=== PATIENT | female | born 1945 | race Caucasian/White ===

== ENCOUNTER 2021-05-15 04:38 | Inpatient (IN) | payer MEDICARE, SELFPAY ==
[2021-05-15] VITALS (20 sets, daily range): BP systolic 101–192; BP diastolic 46–93; PULSE 84–120; RESP 12–29; TEMP 35.6–37.3; O2SAT 97–100; BMI 23.3
--- NOTE | ~2021-05-15 | XR_ITS ---
EXAMINATION: XR chest 1V DATE: 05/15/2021 05:11 INDICATION: Fall. Hypertension. TECHNIQUE: frontal view of the chest was obtained. COMPARISON: None FINDINGS: Small calcified nodule in the left midlung zone and calcified left hilar lymph nodes consistent with old granulomatous disease. No other airspace opacities, pulmonary edema, pleural effusion or pneumoth orax. The cardiomediastinal silhouette is normal. Cholecystectomy clips in right upper quadrant. Mild to moderate degenerative skeletal changes in the spine and at both shoulders. IMPRESSION: 1. No acute cardiopulmonary disease. Reviewed, dictated and finalized at location A.
--- NOTE | ~2021-05-15 | XR_ITS ---
EXAMINATION: XR hip RT 2V w AP pelvis DATE: 05/15/2021 05:11 INDICATION: Right hip pain and deformity post fall TECHNIQUE: Anteroposterior view of the pelvis and anteroposterior and cross-table lateral views of th e right hip were obtained. COMPARISON: None. FINDINGS: Comminuted intratrochanteric fracture of the proximal right femur with 20 degrees varus and posterior angulation of the diaphyseal fragment. There is 2.5 cm superomedial distraction of the lesser trocha nteric fragment. Right femoral head remains normally centered in the right acetabulum. Mild osteoarth ritis at the bilateral hips and mild to moderate osteoarthritis at the bilateral sacral iliac joints. Mild lumbar spondylosis. Vascular calcifications of multiple arteries in the pelvis and proximal thi ghs. IMPRESSION: 1. Mildly displaced and angulated comminuted intratrochanteric fracture of the proximal right femur. Reviewed, dictated and finalized at location A.
--- NOTE | ~2021-05-15 | XR_ITS ---
EXAMINATION: XR surgery orthopedic DATE: 05/15/2021 15:43 INDICATION: Gamma nailing of a right hip fracture TECHNIQUE: 4 fluoroscopic images of the right hip and femur were obtained during procedure performed by Dr. Mcfadden. Radiologist was not present for the imaging or procedure. The amount of fluoroscopy time used during this procedure was 2.1 minutes. COMPARISON: 05/15/2021 FINDINGS: Interval reduction and internal fixation of the previous noted comminuted intratrochanteric fracture of the proximal right femur which is now in essentially anatomic alignment. The fracture is fixed wit h an antegrade intramedullary laney with dynamic femoral neck compression screw and distal interlocking screw. No new fractures identified. Mild osteoarthritis at the right hip marginal osteophytes along the rim of the acetabulum. Expected gas in the soft tissues at the operative bed. IMPRESSION: 1. Essentially anatomic alignment post internal fixation of a comminuted intratrochanteric fracture o f the proximal right femur, negative for postoperative purposes. Reviewed, dictated and finalized at location A. IMPRESSION: 1. Essentially anatomic alignment post internal fixation of a comminuted intrat rochanteric fracture of the proximal right femur, negative for postoperative pu rposes.
--- NOTE | 2021-05-15 05:08 | ED.FALL ---
HPI - Fall General Chief Complaint: Fall Stated Complaint: fall, hip pain Time Seen by Provider: 05/15/21 04:49 Source: patient Mode of arrival: EMS Limitations: no limitations History of Present Illness HPI Narrative: 75-year-old female with history of insulin-dependent diabetes got up to go to the bathroom tonight and fell on her way back to bed. Arrives with R hip pain and deformity, unable to move R leg. No LOC, denies other injury, not on blood thinners. Mechanical fall. Pain constant from Lateral R hip to R quad, sharp,, worse with movement, improves with rest. No previous history of hip or pelvis injury. Related Data Home Medications Medication Instructions Recorded Confirmed insulin glargine U-300 conc 300 35 unit SUB-Q QAM ml 07/19/19 05/15/21 unit/mL (3 mL) subcutaneous pen insulin lispro 200 unit/mL (3 mL) 45 unit SUB-Q .sliding scale ml 07/19/19 05/15/21 subcutaneous pen cholecalciferol (vitamin D3) 50 mcg PO DAILY 05/15/21 05/15/21 [Vitamin D3] Allergies Allergy/AdvReac Type Severity Reaction Status Date / Time No Known Allergies Allergy Verified 05/15/21 09:01 Review of Systems Review of Systems: CONSTITUTIONAL: no fever, no weight loss, no confusion EYES: no vision changes, no eye pain ENT: no rhinorrhea, no sore throat, no difficulty swallowing CARDIOVASCULAR: no chest pain, no leg edema, no palpitations RESPIRATORY: no cough, no shortness of breath, no hemoptysis GASTROINTESTINAL: no abdominal pain, no nausea, no vomiting, no diarrhea GENITOURINARY: no flank pain, no dysuria, no hematuria SKIN: no rash, no jaundice MUSCULOSKELETAL: R hip pain, R LE deformity NEUROLOGIC: No headache, no dizziness, no focal weakness PSYCHIATRIC: No hallucinations, no suicidal ideation [facility] Past Medical History Medical History HTN (hypertension), benign Type 2 diabetes mellitus with hyperglycemia Surgical History Surgical History History of section, low transverse Status post laparoscopic cholecystectomy Family History Family History Father Family history of diabetes mellitus in first degree relative Family history of heart disease in male family member before age 55 Family history of congestive heart failure Mother Family history of malignant neoplasm of uterus Family history of malignant neoplasm of ovary Family history of malignant neoplasm Sibling Family history of malignant neoplasm Father Family history of type 2 diabetes mellitus Father Family history of type 2 diabetes mellitus Other Diabetes mellitus Hypertension Social History Social History Smoking status: Never smoker Second hand tobacco smoke exposure: No Alcohol intake: never Substance use: never Substance use type: does not use Gender identity (if verbalized by the patient): Female Spiritual care concerns: No Exam Narrative: General: alert, afebrile, answering all questions appropriately Head: normocephalic, atraumatic Eyes: EOMI bilaterally, anicteric, no injection ENT: dry mucous membranes, oropharynx patent, no rhinorrhea Neck: supple, trachea midline, no JVD Chest: equal chest rise bilaterally, no chest wall trauma noted : no CVA tenderness B, bladder non-distended EXT: RLE: leg shortened DP 2+ unable to flex leg, tend anterior/lateral hip; moving all other extremities equally Skin: warm, dry, no rashes Neuro: alert, oriented x 3; CN 2-12 grossly intact, no dysarthria Psych: affect appropriate, thought content normal Course Course Emergency Course: xray results reviewed, patient with R intertrochanteric fracture with displacement; patient not on blood thinners, pain medication given, IVF infusing, patient more comfortable will admit for hip fracture Con
[2021-05-15] MEDS: fentaNYL CITRATE INJ (*CRX) 100 MCG/2 ML VIAL 25 MCG IV PUSH ×2 (05:18→06:55)
[2021-05-15 05:33] LABS: Basophils Percent Auto 0.5 % (0.2-1.2); Eosinophils Absolute Auto 0.3 K/mm3 (0-0.3); Eosinophils Percent Auto 4.8 % (0-4.4); Hematocrit 33.8 % (37.0-47.0); Hemoglobin 12.3 g/dL (12.0-15.0); Immature Granulocyte Absolute 0.03 K/mm3 (0.00-0.031); Immature Granulocyte Percent A 0.5 % (0-0.5); Lymphocytes Absolute Auto 1.39 K/mm3 (0.9-3.2); Lymphocytes Percent Auto 24.7 % (18.3-44.2); Mean Corpuscular HGB Conc 36.4 g/dl (32-36); Mean Corpuscular Hemoglobin 31.1 pg (26-34); Mean Corpuscular Volume 85.6 fl (80-100); Mean Platelet Volume 9.5 fl (7.4-10.4); Monocytes Absolute Auto 0.4 K/mm3 (0.1-0.6); Monocytes Percent Auto 6.2 % (2.6-8.5); Neutrophils Absolute Auto 3.6 K/mm3 (1.3-6.7); Neutrophils Percent Auto 63.3 % (45.5-73.1); Platelet Count Result 191 k/mm3 (150-375); Red Blood Count 3.95 M/mm3 (4.2-5.4); Red Cell Distribution Width 12.4 % (11.5-14.5); White Blood Count 5.6 K/mm3 (4.5-10.0)
[2021-05-15 05:42] LABS: Anion Gap 9 mmol/L (8-16); Blood Urea Nitrogen 30 mg/dL (7-17); Calcium 9.1 mg/dL (8.4-10.2); Carbon Dioxide 27 mmol/L (22-30); Chloride 102 mmol/L (98-107); Estimated CRCL calculation 28 ml/min; Estimated Glomerular Filt Rate 44; Glucose 252 mg/dL (65-110); Potassium 3.6 mmol/L (3.4-5.0); Prothrombin Time 13.2 Seconds (11.1-14.7); Sodium 138 mmol/L (137-145)
[2021-05-15 05:53] LABS: Troponin I < 0.012 ng/mL (0.000-0.034)
[2021-05-15] MEDS: LACTATED RINGERS 1,000 ML 999 ML IV CONT (06:25)
[2021-05-15 06:45] LABS: Add Urine Microscopic? YES; Appearance Urine Cloudy (Clear); Bacteria Urine Trace /hpf; Bilirubin Urine Negative (Negative); Blood Urine Negative (Negative); Color Urine Yellow (Yellow); Glucose Urine UA 2+ mg/dL (Negative); Ketones Urine Negative (Negative); Leukocyte Esterase Ur Trace LEU/UL (Negative); Mucus Urine Rare /lpf; Nitrate Urine Positive (Negative); Protein Urine Negative (Negative); Squamous Epithelial Cell Urine Occasional /hpf (Few); Urobilinogen Urine Negative mg/dL (<2.0)
[2021-05-15 08:19] LABS: Hemoglobin A1C 7.5 % (<5.7)
[2021-05-15 08:22] LABS: Glucose Point of Care 254 mg/dl (65-105)
--- NOTE | 2021-05-15 08:45 | ADMGEN ---
This patient, Amy Dhaliwal, was admitted to [facility] Surg Room 305-02. Patient/family oriented to hospital policies and general routines including ID bracelet, bed and alarms, visiting hours, pain management, procedures, bathroom and other care routines, personal items, smoking policy, room service/diet, and visiting hours. Information on how to activate the Rapid Response Team has been discussed. Patient/Family are encouraged to report perceived risks to care and to ask questions if they do not understand what they are told or what they should do.
--- NOTE | 2021-05-15 08:58 | PM.CNOR ---
Assessment and Plan Additional Plan 75-year-old with a right intertrochanteric hip fracture. We will prepare for surgery and hopefully fix with a gamma nail this afternoon. Medicine to see for surgical clearance. History of Present Illness HPI Consult date: 05/15/21 Consult reason: fracture Chief complaint: r hip fracture Narrative: 75-year-old female who fell trying to go to the bathroom. She sustained a right intertrochanteric hip fracture. She is an insulin-dependent diabetes. She has no other significant health history. Medicine is to see to clear for surgery. She will require a gamma nail. [facility] Past Medical History Medical History (Updated 05/15/21 @ 05:51 by Amy Rowland MD) HTN (hypertension), benign Surgical History Surgical History History of section, low transverse Status post laparoscopic cholecystectomy Family History Family History Father Family history of diabetes mellitus in first degree relative Family history of heart disease in male family member before age 55 Family history of congestive heart failure Mother Family history of malignant neoplasm of uterus Family history of malignant neoplasm of ovary Family history of malignant neoplasm Sibling Family history of malignant neoplasm Father Family history of type 2 diabetes mellitus Father Family history of type 2 diabetes mellitus Other Diabetes mellitus Hypertension Social History Social History Smoking status: Never smoker Second hand tobacco smoke exposure: No Alcohol intake: never Substance use: never Substance use type: does not use Gender identity (if verbalized by the patient): Female Spiritual care concerns: No Meds Home Medications and Allergies Home Medications Medication Instructions Recorded Confirmed Type lisinopril 2.5 mg tablet 2.5 mg PO DAILY #30 tablet 06/05/19 06/05/19 Rx insulin glargine U-300 conc 300 100 unit SUB-Q QAM ml 07/19/19 History unit/mL (3 mL) subcutaneous pen insulin lispro 200 unit/mL (3 mL) 45 unit SUB-Q .sliding scale ml 07/19/19 History subcutaneous pen Allergies Allergy/AdvReac Type Severity Reaction Status Date / Time No Known Allergies Allergy Verified 05/15/21 09:01 Vital Signs Vital Signs - 24 hr 05/15/21 04:41 11/04/21 05:23 05/15/21 07:01 Temperature 36.6 C Pulse Rate 102 H 107 H 114 H Respiratory Rate 16 15 Blood Pressure 192/93 H 157/76 H 185/84 H Pulse Oximetry 99 97 98 05/15/21 08:10 Temperature 36.1 C L Pulse Rate 114 H Respiratory Rate 20 Blood Pressure 176/79 H Pulse Oximetry 100 Exam Extrem: Other: Right hip Shortened and externally rotated. Calves are supple and nontender. Right thigh is supple and minimally tender. Attempt at log roll is tender. Neurovascularly intact distally with good capillary refill. X-ray review shows an intertrochanteric hip fracture with displacement. Results Labs Result Diagrams: 05/15/21 05:12 05/15/21 05:12 Labs: Abnormal lab results 05/15/21 05/15/21 05/15/21 Range/Units 05:12 05:12 05:12 RBC 3.95 L (4.2-5.4) M/mm3 Hct 33.8 L (37.0-47.0) % MCHC 36.4 H (32-36) g/dl Eos % (Auto) 4.8 H (0-4.4) % BUN 30 H (7-17) mg/dL Creatinine 1.20 H (0.7-1.0) mg/dL Estimated GFR 44 L (59 - ) Glucose 252 H (65-110) mg/dL POC Capillary Glucose (65-105) mg/dl Hemoglobin A1c 7.5 H (<5.7) % Urine Appearance (Clear) Urine Glucose (UA) (Negative) mg/dL Urine Nitrate (Negative) Leukocyte Esterase Rfl (Negative) PATRICIO/UL Urine RBC (0-2) /hpf Urine WBC /hpf 05/15/21 05/15/21 Range/Units 06:26 07:56 RBC (4.2-5.4) M/mm3 Hct (37.0-47.0) % MCHC (32-36) g/dl Eos % (Auto) (0-4.4) % BUN
[2021-05-15] MEDS: LACTATED RINGERS 1,000 ML 150 ML IV CONT (09:53)
[2021-05-15] MEDS: INSULIN ASPART (*BKC) 100 UNITS/ML SUB-Q (09:55)
[2021-05-15] MEDS: LABETALOL HCL INJ 100 MG/20 ML VIAL 10 MG IV PUSH (10:02)
[2021-05-15] MEDS: MORPHINE SULFATE (*CRX) 2 MG/ML INJ 1 MG IV PUSH ×2 (10:16→20:58)
--- NOTE | 2021-05-15 10:58 | ECG_ITS ---
Measurements Intervals [place] Rate: 99 P: 69 NC: 176 QRS: 59 QRSD: 68 T: 62 QT: 339 QTc: 436 Interpretive Statements SINUS RHYTHM BASELINE ARTIFACT- II, III, V4 NORMAL ECG Electronically Signed On 05-15-2021 15:10:21 CDT by Thong Giordano D.O.
[2021-05-15 12:26] LABS: Glucose Point of Care 212 mg/dl (65-105)
--- NOTE | 2021-05-15 13:13 | PM.IMHP ---
H&P: HPI History of Present Illness Date/Time: 05/15/21 13:13 Chief Complaint: Fall Narrative: 75-year-old female with past medical history significant hypertension, hyperlipidemia and type 2 diabetes mellitus presented status post mechanical fall. Patient reports that she woke up in the middle of the night to go to the bathroom and on her way back sustained a mechanical fall. She denies any lightheadedness, dizziness, chest pain, shortness of breath, fluttering of the heart, fever, chills, nausea or vomiting during this episode. An x-ray done in the ED with concerns for intertrochanteric fracture. Orthopedics has been brought on board the patient is planned for going to the OR does have a known. Patient reports that she is able to complete 4 Mets. She is able to climb a flight of stairs without any shortness of breath or chest pain however she is limited by her knee pain secondary to osteoarthritis and knee surgery on the left leg. An EKG was done preop which revealed normal sinus rhythm. And patient is cleared for surgery with an RCRI score of 1, putting her at 6% risk of cardiac complications postop op. Review of Systems Review of Systems: A 10 point review of system was conducted which was otherwise negative PMFSH Past Medical History Medical History (Updated 05/15/21 @ 13:51 by Barbara Reveles MD) HTN (hypertension), benign Surgical History Surgical History History of section, low transverse Status post laparoscopic cholecystectomy Family History Family History Father Family history of diabetes mellitus in first degree relative Family history of heart disease in male family member before age 55 Family history of congestive heart failure Mother Family history of malignant neoplasm of uterus Family history of malignant neoplasm of ovary Family history of malignant neoplasm Sibling Family history of malignant neoplasm Father Family history of type 2 diabetes mellitus Father Family history of type 2 diabetes mellitus Other Diabetes mellitus Hypertension Social History Social History Smoking status: Never smoker Second hand tobacco smoke exposure: No Alcohol intake: never Substance use: never Substance use type: does not use Gender identity (if verbalized by the patient): Female Spiritual care concerns: No Meds Home Medications and Allergies Home Medications Medication Instructions Recorded Confirmed Type insulin glargine U-300 conc 300 35 unit SUB-Q QAM ml 07/19/19 05/15/21 History unit/mL (3 mL) subcutaneous pen insulin lispro 200 unit/mL (3 mL) 45 unit SUB-Q .sliding scale ml 07/19/19 05/15/21 History subcutaneous pen cholecalciferol (vitamin D3) 50 mcg PO DAILY 05/15/21 05/15/21 History [Vitamin D3] Allergies Allergy/AdvReac Type Severity Reaction Status Date / Time No Known Allergies Allergy Verified 05/15/21 09:01 Vital Signs Vital Signs - 24 hr 05/15/21 04:41 05/15/21 05:23 05/15/21 07:01 Temperature 97.8 F Pulse Rate 102 H 107 H 114 H Respiratory Rate 16 15 Blood Pressure 192/93 H 157/76 H 185/84 H Pulse Oximetry 99 97 98 05/15/21 08:10 05/15/21 10:02 Temperature 97.0 F L Pulse Rate 114 H 120 H Respiratory Rate 20 Blood Pressure 176/79 H Pulse Oximetry 100 Exam Narrative: General: alert, afebrile Head: normocephalic, atraumatic Eyes: EOMI bilaterally, anicteric, no injection ENT: dry mucous membranes, oropharynx patent, no rhinorrhea Neck: supple, trachea midline, no JVD Chest: equal chest rise bilaterally, no chest wall trauma noted : no CVA tenderness B, bladder non-distended EXT: RLE: leg shortened DP 2+ unable to flex leg, tend anterior/lateral hip; moving all other extremities equally Skin: warm, dry, no rashes Neuro: alert, oriented x 3
--- NOTE | 2021-05-15 13:57 | WPDHPUPDATE1 ---
History and Physical Update Update Date/Time: 05/15/21 13:57 History and Physical has been reviewed, including an updated exam of the patient. There are NO changes in the patient's condition. Risks, benefits, and alternatives have been discussed and questions answered. Patient agrees to proceed with procedure.
--- NOTE | 2021-05-15 14:03 | WPDANESEPPF ---
Anes - Initial Pre Proc Eval Procedure: Operation Date: 05/15/21 15:30 Proposed Procedures p Right Hip Gamma Nail - Librado Mcfadden MD Date/Time: 05/15/21 14:03 Surgeon: Brett Conley MD Pre Op Diagnosis: r hip fracture Patient Data Age: 75 Gender: F Height: 1.55 m Weight: 56 kg Last Vital Signs Temp 36.1 C L 05/15/21 08:10 Pulse 120 H 05/15/21 10:02 Resp 20 05/15/21 08:10 BP 176/79 H 05/15/21 08:10 Pulse Ox 100 05/15/21 08:10 Allergies Allergy/AdvReac Type Severity Reaction Status Date / Time No Known Allergies Allergy Verified 05/15/21 09:01 Home Medications Medication Instructions Recorded Confirmed Type insulin glargine U-300 conc 300 35 unit SUB-Q QAM ml 07/19/19 05/15/21 History unit/mL (3 mL) subcutaneous pen insulin lispro 200 unit/mL (3 mL) 45 unit SUB-Q .sliding scale ml 07/19/19 05/15/21 History subcutaneous pen cholecalciferol (vitamin D3) 50 mcg PO DAILY 05/15/21 05/15/21 History [Vitamin D3] Laboratory Tests 05/15/21 05/15/21 05/15/21 05:12 05:12 05:12 WBC 5.6 K/mm3 K/mm3 (4.5-10.0) RBC 3.95 M/mm3 L M/mm3 (4.2-5.4) Hgb 12.3 g/dL g/dL (12.0-15.0) Hct 33.8 % L % (37.0-47.0) MCV 85.6 fl fl (80-100) MCH 31.1 pg pg (26-34) MCHC 36.4 g/dl H g/dl (32-36) RDW 12.4 % % (11.5-14.5) Plt Count 191 k/mm3 k/mm3 (150-375) MPV 9.5 fl fl (7.4-10.4) Immature Gran % (Auto) 0.5 % % (0-0.5) Neut % (Auto) 63.3 % % (45.5-73.1) Lymph % (Auto) 24.7 % % (18.3-44.2) [place] % (Auto) 6.2 % % (2.6-8.5) Eos % (Auto) 4.8 % H % (0-4.4) Baso % (Auto) 0.5 % % (0.2-1.2) Lymph # (Auto) 1.39 K/mm3 K/mm3 (0.9-3.2) [place] # (Auto) 0.4 K/mm3 K/mm3 (0.1-0.6) Eos # (Auto) 0.3 K/mm3 K/mm3 (0-0.3) Baso # (Auto) 0.0 K/mm3 K/mm3 (0.0-0.1) Abs Immat Gran (auto) 0.03 K/mm3 K/mm3 (0.00-0.031) Absolute Neuts (auto) 3.6 K/mm3 K/mm3 (1.3-6.7) Absolute Nucleated RBC 0.0 K/mm3 K/mm3 (0.0-0.012) Nucleated RBC % 0.0 % % (0.0-0.2) PT 13.2 Seconds Seconds (11.1-14.7) INR 1.0 APTT 26.0 SECONDS SECONDS (22.3-36.8) Sodium 138 mmol/L mmol/L (137-145) Potassium 3.6 mmol/L mmol/L (3.4-5.0) Chloride 102 mmol/L mmol/L (98-107) Carbon Dioxide 27 mmol/L mmol/L (22-30) Anion Gap 9 mmol/L mmol/L (8-16) BUN 30 mg/dL H mg/dL (7-17) Creatinine 1.20 mg/dL H mg/dL (0.7-1.0) Estim Creat Clear Calc 28 ml/min ml/min Estimated GFR 44 L (59 - ) Glucose 252 mg/dL H mg/dL (65-110) POC Capillary Glucose Hemoglobin A1c Calcium 9.1 mg/dL mg/dL (8.4-10.2) Troponin I < 0.012 ng/mL ng/mL (0.000-0.034) Urine Color Urine Appearance Urine pH Ur Specific [place] Urine Protein Urine Glucose (UA) Urine Ketones Ur Blood (Man) Urine Nitrate Urine Bilirubin Urine Urobilinogen Leukocyte Esterase Rfl Urine RBC Urine WBC Ur Squamous Epith Cells Urine Bacteria Urine Mucus 05/15/21 05/15/21 05/15/21 05:12 06:26 07:56 WBC RBC Hgb Hct MCV MCH MCHC RDW Plt Count MPV Immature Gran % (Auto) Neut % (Auto) Lymph % (Auto) [place] % (Auto) Eos % (Auto) Baso % (Auto) Lymph # (Auto) [place] # (Auto) Eos # (Auto) Baso # (Auto)
[2021-05-15 14:16] LABS: Glucose Point of Care 210 mg/dl (65-105)
[2021-05-15] MEDS: LACTATED RINGERS 1,000 ML 30 ML IV CONT ×2 (14:21→16:04)
--- NOTE | 2021-05-15 16:06 | W.PM.PROC2 ---
Procedure Note - Detailed Date of Procedure 05/15/21 Pre-op Diagnosis Right Intertrochanteric hip fracture Post-op Diagnosis same Procedure Performed Right Hip Gamma Nail fixation ORIF Surgeon Librado Mcfadden MD Electric [employer] Attendant Tereza Anesthesia general Indications 75 yo fell sustaining right IT hip fx Findings IT hip fx Description of Procedure The patient was identified and brought to the operating room and placed in supine position on the operating room fracture table. Reduction was performed and checked under fluoroscopy using the fracture table. An anatomical reduction was achieved. The patient was then sterilely prepped and draped in the usual fashion. A surgical time in and time-out was performed. After appropriate general anesthetic anesthesia the skin was marked with a marker under fluoroscopy showing the position of the tip of the greater trochanter and the angle of the femoral neck and head. A longitudinal incision was then made about a cm proximal to the tip of the greater trochanter in line with the AP diameter of the femur. This was a 4 cm incision taken sharply through the skin subcutaneous dissection was blunt down to the level of the fascia which was incised and then the surgeon's finger was used to find the tip of the greater trochanter. The guidewire for the gamma nail was then inserted using fluoroscopy as a guide. Once the guidewire was in the center of the femoral shaft on both the AP and the lateral and through the tip of the greater trochanter in appropriate position a Reamer was used and the proximal reaming was performed. The actual implant was then inserted. Under fluoroscopy a guidewire was then placed into the center of the femoral head on both the AP and the lateral planes. The compression hip screw incision was made about a cm. The guide was then placed against the bone and the wire was positioned as above mentioned. This was then measured and reamed and an appropriate sized compression screw was placed. We were using a 125 degree nail with a 180 mm length and the 11 mm diameter. Once the compression screw had been placed we put a locking screw proximally I tightened it and then loosened a quarter turn to allow for compression. The fracture was pre-compressed. I then turned my attention distally and the guide tubes were placed against the femoral shaft was drilled measured and appropriately sized locking screw was placed. All of this was checked under fluoroscopy in the AP and lateral planes and we determined that an anatomical reduction had been achieved and that the gamma nail was well placed in the femur. We then copiously irrigated the incisions. The distal 2 incisions were closed with 4-0 Monocryl in a intracuticular fashion. The proximal incision was closed with a 1. Vicryl closing the fascia. [id number] stitch was utilized. 3-0 Vicryl was then used to close the subcutaneous tissues and a 4-0 running Monocryl was used to close the skin. Surgical glue was used. A silver dressing was applied. Dry sterile compressive dressing was applied. The patient tolerated the procedure well and returned to the recovery room in stable condition. . Implants Gamma Nail Estimated Blood Loss 125 Drains No Packing No Pathology none sent Complications No immediate complications Condition stable Disposition PACU
[2021-05-15 16:26] LABS: Glucose Point of Care 167 mg/dl (65-105)
[2021-05-15] MEDS: KCL 20 MEQ/D5/0.45% SOD CHL 1,000 ML 80 ML IV CONT (18:22)
[2021-05-15] MEDS: INSULIN GLARGINE (*BKC) 100 UNITS/ML 50 UNITS SUB-Q (20:50)
[2021-05-15 21:36] LABS: Glucose Point of Care 268 mg/dl (65-105)
[2021-05-16] VITALS (11 sets, daily range): BP systolic 92–114; BP diastolic 42–54; PULSE 93–112; RESP 18–24; TEMP 35.1–36.7; O2SAT 84–100
[2021-05-16] MEDS: ONDANSETRON INJ 4 MG/2 ML VIAL IV PUSH ×2 (00:46→15:56)
[2021-05-16] MEDS: KCL 20 MEQ/D5/0.45% SOD CHL 1,000 ML 80 ML IV CONT (06:02)
[2021-05-16 06:32] LABS: Basophils Percent Auto 0.3 % (0.2-1.2); Eosinophils Percent Auto 0.4 % (0-4.4); Hemoglobin 9.1 g/dL (12.0-15.0); Immature Granulocyte Absolute 0.03 K/mm3 (0.00-0.031); Immature Granulocyte Percent A 0.3 % (0-0.5); Lymphocytes Absolute Auto 0.73 K/mm3 (0.9-3.2); Lymphocytes Percent Auto 7.9 % (18.3-44.2); Mean Corpuscular Hemoglobin 31.6 pg (26-34); Mean Corpuscular Volume 90.3 fl (80-100); Mean Platelet Volume 10.5 fl (7.4-10.4); Monocytes Absolute Auto 0.5 K/mm3 (0.1-0.6); Monocytes Percent Auto 4.9 % (2.6-8.5); Neutrophils Percent Auto 86.2 % (45.5-73.1); Platelet Count Result 151 k/mm3 (150-375); Red Blood Count 2.88 M/mm3 (4.2-5.4); Red Cell Distribution Width 12.9 % (11.5-14.5); White Blood Count 9.2 K/mm3 (4.5-10.0)
[2021-05-16 06:42] LABS: Alanine Aminotransferase 15 U/L (4-35); Alkaline Phosphatase 49 U/L (38-126); Anion Gap 9 mmol/L (8-16); Aspartate Amino Transferase 30 U/L (14-36); Bilirubin,Total 1.1 mg/dL (0.2-1.3); Blood Urea Nitrogen 27 mg/dL (7-17); Calcium 8.3 mg/dL (8.4-10.2); Carbon Dioxide 21 mmol/L (22-30); Chloride 104 mmol/L (98-107); Estimated CRCL calculation 31 ml/min; Estimated Glomerular Filt Rate 49; Glucose 374 mg/dL (65-110); Potassium 4.8 mmol/L (3.4-5.0); Sodium 134 mmol/L (137-145)
--- NOTE | 2021-05-16 08:00 | PM.PNORT ---
Progress Note: A&P Additional Plan POD# 1 R Gamma Nail for hip fx PT to mobilize Cont DVT PRoph.- Lovenox 40 mg q D. SNF for d/C F/U with LEb within 10 days of d/c Subjective Subjective Date/Time Seen: 05/16/21 08:00 Post Op day: 1 Principal diagnosis: Right IT hip fx with Gamma Nail fixation Exam Extrem: Other: Right Hip Dressing C/D/I NV intact distally Calves NT bilat Thigh supple and NT moves toes and ankle gentle Log roll with min tenderness Objective Data Vital Signs Vital Signs: Vital Signs - 24 hr 05/15/21 08:10 05/15/21 10:02 05/15/21 12:00 Temperature 36.1 C L Pulse Rate 114 H 120 H 99 Respiratory Rate 20 Blood Pressure 176/79 H Pulse Oximetry 100 05/15/21 14:14 05/15/21 16:04 05/15/21 16:15 Temperature 37.3 C 36.2 C L Pulse Rate 106 H 84 89 Respiratory Rate 14 20 29 H Blood Pressure 163/75 H 131/71 173/76 H Pulse Oximetry 100 100 100 05/15/21 16:30 05/15/21 16:45 05/15/21 17:00 Temperature Pulse Rate 93 95 95 Respiratory Rate 16 12 19 Blood Pressure 145/72 H 120/81 132/64 Pulse Oximetry 100 100 99 05/15/21 17:15 05/15/21 17:40 05/15/21 17:55 Temperature 35.7 C L 35.6 C L Pulse Rate 97 98 100 Respiratory Rate 12 16 18 Blood Pressure 113/67 139/70 122/76 Pulse Oximetry 100 100 100 05/15/21 18:25 05/15/21 19:43 05/15/21 20:00 Temperature 35.6 C L Pulse Rate 96 94 91 Respiratory Rate 18 18 Blood Pressure 121/55 L Pulse Oximetry 100 99 05/15/21 21:34 05/16/21 00:00 05/16/21 03:07 Temperature 35.8 C L 35.1 C L Pulse Rate 93 106 H 96 Respiratory Rate 18 18 Blood Pressure 101/46 L 99/42 L Pulse Oximetry 100 94 05/16/21 04:00 05/16/21 04:05 Temperature Pulse Rate 93 Respiratory Rate Blood Pressure Pulse Oximetry 84 L 94 Intake/Output Intake/Output: Intake & Output 05/13/21 05/14/21 05/15/21 05/16/21 23:59 23:59 23:59 23:59 Intake Total 250 1000 Output Total 70 100 Balance 180 900 Meds/Results Medications: Active Medications Generic Name Dose Route Start Last Admin Trade Name Freq PRN Reason Stop Dose Admin Dextrose 12.5 gm 05/15/21 07:29 Dextrose 50% 25 Gm/50 Ml Syringe IV PUSH PRN PRN Hypoglycemia Protocol Docusate Sodium 100 mg 05/15/21 17:22 05/15/21 18:18 Docusate Sodium 100 Mg Capsule PO Not Given BID DAVINA Enoxaparin Sodium 40 mg 05/16/21 09:00 Enoxaparin 40 Mg/0.4 Ml Syringe SUB-Q DAILY DAVINA Glucagon 1 mg 05/15/21 07:29 Glucagon For Inj 1 Mg Vial IM PRN PRN Hypoglycemia Protocol Glucose 15 gm 05/15/21 07:29 Glucose Oral Gel 15 Gm Of Glucse In 37.5 Gm Tube PO PRN PRN Hypoglycemia Protocol Dextrose 1,000 mls @ 100 mls/hr 05/15/21 07:29 Dextrose 5% 1,000 Ml IVPB PRN PRN Hypoglycemia Protocol Sodium Chloride 1,000 mls @ 100 mls/hr 05/15/21 07:30 Normal Saline Iv IV CONT .Q10H DAVINA Acetaminophen 650 mg in 65 mls @ 260 mls/hr 05/15/21 13:12 Ofirmev 650 Mg Ivpb IVPB 05/16/21 13:11 Q6H PRN Pain Rated 1-3 Potassium Chloride/Dextrose/Sod Cl 1,000 mls @ 80 mls/hr 05/15/21 17:22 05/16/21 06:02 Kcl 20 Meq/D5/0.45% Sod Chl IV CONT 80 mls/hr .[id number] DAVINA Administration Cefazolin Sodium 1 gm in 50 mls @ 100 mls/hr 05/15/21 22:00 05/16/21 06:01 Ancef 1 Gm/D5w 50 Ml Pm IVPB 05/16/21 14:29 100 mls/hr Q8H DAVINA Administration Insulin Aspart 15 units 05/15/21 08:00 05/15/21 18:17 Insulin Aspart (*Bkc) 100 Units/Ml SUB-Q Not Given TIDWM DAVINA Insulin Aspart 4 - 8 units 05/15/21 08:00 05/15/21 18:16 Insulin Aspart (*Bkc) 100 Units/Ml SUB-Q Not Given TIDWM [facility] Protocol Insulin Glargine 50 units 05/15/21 21:00 05/15/21 20:50 Insulin Glargine (*Bkc) 100 Units/Ml SUB-Q 50 units [facility] Administration Labetalol HCl 10 mg 05/15/21 07:33 05/15/21 10:02 Labetalol Hcl Inj 100 Mg/20 Ml Vial IV PUSH 10 mg Q6HR PRN Admi
[2021-05-16 08:25] LABS: Glucose Point of Care 343 mg/dl (65-105)
[2021-05-16] MEDS: DOCUSATE SODIUM 100 MG CAPSULE PO (10:14)
[2021-05-16] MEDS: ENOXAPARIN 40 MG/0.4 ML SYRINGE SUB-Q (10:14)
[2021-05-16] MEDS: INSULIN ASPART (*BKC) 100 UNITS/ML SUB-Q ×3 (10:16→17:35)
[2021-05-16] MEDS: MORPHINE SULFATE (*CRX) 2 MG/ML INJ 1 MG IV PUSH (10:17)
[2021-05-16] MEDS: diphenhydrAMINE HCl INJ 50 MG/ML VIAL 25 MG IV PUSH ×2 (12:24→21:49)
[2021-05-16 12:30] LABS: Glucose Point of Care 331 mg/dl (65-105)
[2021-05-16] MEDS: MORPHINE SULFATE (*CRX) 2 MG/ML INJ IV PUSH (13:13)
[2021-05-16] MEDS: SODIUM CHLORIDE 0.9% IV 1,000 ML 100 ML IV CONT (15:40)
[2021-05-16 16:34] LABS: Glucose Point of Care 250 mg/dl (65-105)
--- NOTE | 2021-05-16 18:32 | PC.NURSE ---
Pt has had several episodes of emesis throughout the day. Bogdan and Darci informed. Pt returned to clear liquid diets. Tried to add benadryl 25 mg Q4HR IVP when zofran fails. pt did better but still had emesis occasionally. Informed Darci. Discussed putting pt back to fentanyl for pain management as she had in the ED, considering morphine the possible source of N/V. Pt BPs running soft; ordered pt to trendelenburg position and SCDs placed. Pt intolerant of trendelenburg, but SCDs placed. aware; okay with current BP of 92/52. Will continue to monitor.
--- NOTE | 2021-05-16 18:43 | PM.IMPN ---
Progress Note: A&P Assessment and Plan (1) Closed displaced fracture of right femoral neck: Code(s): S72.001A - Fracture of unspecified part of neck of right femur, initial encounter for closed fracture Assessment and Plan: Patient is postop day 1 fracture repair. Under management per Ortho. (2) Pre-operative examination for internal medicine: Code(s): Z01.818 - Encounter for other preprocedural examination Status: Acute (3) HTN (hypertension), benign: Code(s): I10 - Essential (primary) hypertension Status: Acute (4) Long-term current use of insulin for diabetes mellitus: Code(s): Z79.4 - [employer] (current) use of insulin; E11.9 - Type 2 diabetes mellitus without complications Status: Acute (5) Vitamin D deficiency: Code(s): E55.9 - Vitamin D deficiency, unspecified Status: Acute (6) ROSY (acute kidney injury): Code(s): N17.9 - Acute kidney failure, unspecified Status: Acute (7) Abnormal urinalysis: Code(s): R82.90 - Unspecified abnormal findings in urine Status: Acute Additional Plan 1. Displaced, comminuted intratrochanteric fracture of the right femur: -patient He is postop day 1; management by Orthopedics -pain management with IV fentanyl 25 mg q.3 hours alternating with IV Tylenol -once patient gets the surgery her pain management can be further optimized to p.o. regimen 2. ROSY or possible CKD: -creatinine noted to be 1.2 -continue monitor 3. Preop screening: -patient is cleared for surgery with RCRI score of 1, putting her at a 6% risk of cardiac event post surgery 4. DVT prophylax: -hold off on DVT prophylaxis for now -please re-evaluate patient in a.m. and consider starting 24 hours postop as per orthopedic recommendations Subjective Date/time seen: 05/16/21 18:43 S: Patient was examined at the bedside. She is complaining of nausea and vomiting. Review of Systems Review of Systems: All systems reviewed & are unremarkable except as noted in HPI and below Gastrointestinal: Gastrointestinal: Reports nausea and Reports vomiting Exam Narrative: General: alert, afebrile Head: normocephalic, atraumatic Eyes: EOMI bilaterally, anicteric, no injection ENT: dry mucous membranes, oropharynx patent, no rhinorrhea Neck: supple, trachea midline, no JVD Chest: equal chest rise bilaterally, no chest wall trauma noted : no CVA tenderness B, bladder non-distended EXT: RLE: leg shortened DP 2+ unable to flex leg, tend anterior/lateral hip; moving all other extremities equally Skin: warm, dry, no rashes Neuro: alert, oriented x 3; CN 2-12 grossly intact, no dysarthria Psych: affect appropriate, thought content normal Objective Data Vital Signs Vital Signs: Vital Signs - 24 hr 05/15/21 19:43 05/15/21 20:00 05/15/21 21:34 Temperature 96.5 F L Pulse Rate 94 91 93 Respiratory Rate 18 18 Blood Pressure 101/46 L Pulse Oximetry 99 100 05/16/21 00:00 05/16/21 03:07 05/16/21 04:00 Temperature 95.1 F L Pulse Rate 106 H 96 93 Respiratory Rate 18 Blood Pressure 99/42 L Pulse Oximetry 94 84 L 05/16/21 04:05 05/16/21 08:00 05/16/21 12:00 Temperature Pulse Rate 102 H 103 H Respiratory Rate Blood Pressure Pulse Oximetry 94 05/16/21 14:00 05/16/21 16:00 Temperature 97.4 F L Pulse Rate 102 H 108 H Respiratory Rate 24 H Blood Pressure 92/52 L Pulse Oximetry 100 Intake/Output Intake/Output: Intake & Output 05/13/21 05/14/21 05/15/21 05/16/21 23:59 23:59 23:59 23:59 Intake Total 250 1150 Output Total 70 350 Balance 180 800 Meds/Results Medications: Active Medications Generic Name Dose Route Start Last Admin Trade Name Freq PRN Reason Stop Dose Admin Dextrose 12.5 gm 05/15/21 07:29 Dextrose 50% 25 Gm/50 Ml Syringe IV PUSH PRN PRN Hypoglycemia Protocol Diphenhydramine HCl 25 mg 05/16/21 11:38 05/16/21 12:24 Diphenhydramine Hcl I
[2021-05-16 23:43] LABS: Glucose Point of Care 117 mg/dl (65-105)
[2021-05-17] VITALS (8 sets, daily range): BP systolic 134–142; BP diastolic 60–70; PULSE 98–113; RESP 20; TEMP 36.2–37.1; O2SAT 95–98
[2021-05-17] MEDS: ONDANSETRON INJ 4 MG/2 ML VIAL IV PUSH ×2 (01:22→22:38)
[2021-05-17] MEDS: fentaNYL CITRATE INJ (*CRX) 100 MCG/2 ML VIAL 25 MCG IV PUSH ×4 (01:22→22:37)
[2021-05-17] MEDS: SODIUM CHLORIDE 0.9% IV 1,000 ML 100 ML IV CONT ×3 (02:58→22:42)
[2021-05-17 06:03] LABS: Glucose Point of Care 107 mg/dl (65-105)
[2021-05-17] MEDS: ENOXAPARIN 40 MG/0.4 ML SYRINGE SUB-Q (08:44)
[2021-05-17] MEDS: INSULIN ASPART (*BKC) 100 UNITS/ML 15 UNITS SUB-Q (08:44)
[2021-05-17] MEDS: DOCUSATE SODIUM 100 MG CAPSULE PO ×2 (08:44→17:16)
[2021-05-17 08:46] LABS: Glucose Point of Care 105 mg/dl (65-105)
[2021-05-17] MEDS: DEXTROSE 50% 25 GM/50 ML SYRINGE IV PUSH (12:01)
[2021-05-17 12:08] LABS: Glucose Point of Care 32 mg/dl (65-105)
[2021-05-17 12:26] LABS: Glucose Point of Care 168 mg/dl (65-105)
[2021-05-17 13:15] LABS: Glucose Point of Care 153 mg/dl (65-105)
--- NOTE | 2021-05-17 13:23 | PM.IMPN ---
Progress Note: A&P Assessment and Plan (1) Closed displaced fracture of right femoral neck: Code(s): S72.001A - Fracture of unspecified part of neck of right femur, initial encounter for closed fracture Assessment and Plan: Patient is postop day 2 fracture repair. Under management per Ortho. (2) HTN (hypertension), benign: Code(s): I10 - Essential (primary) hypertension Status: Acute Assessment and Plan: consultation for pressure is well controlled without blood pressure medication. BP 134-137 over 60-70. (3) Long-term current use of insulin for diabetes mellitus: Code(s): Z79.4 - senior living (current) use of insulin; E11.9 - Type 2 diabetes mellitus without complications Status: Acute Assessment and Plan: Currently patient is on Lantus 50 units subQ q.h.s. and mealtime insulin aspart 15 units t.i.d. with meals. Due to episode of hypoglycemia we will hold the mealtime insulin. Exceptionally will allow sweets in her with meals today. (4) Vitamin D deficiency: Code(s): E55.9 - Vitamin D deficiency, unspecified Status: Acute Assessment and Plan: Supplemented. (5) ROSY (acute kidney injury): Code(s): N17.9 - Acute kidney failure, unspecified Status: Acute Assessment and Plan: Creatinine is improving from 1.2-1.1. Monitor kidney function in a.m. labs. (6) Abnormal urinalysis: Code(s): R82.90 - Unspecified abnormal findings in urine Status: Acute Additional Plan 1. Displaced, comminuted intratrochanteric fracture of the right femur: -patient He is postop day 2; management by Orthopedics -pain management with IV fentanyl 25 mg q.3 hours alternating with IV Tylenol -once patient gets the surgery her pain management can be further optimized to p.o. regimen 2. ROSY or possible CKD: -creatinine noted to be 1.2 -continue monitor 3. Preop screening: -patient is cleared for surgery with RCRI score of 1, putting her at a 6% risk of cardiac event post surgery 4. DVT prophylax: -Lovenox 40 mg daily.. Subjective Date/time seen: 05/17/21 13:23 S: Patient is examined at the bedside. She is lethargic, with slow answers to questions. Patri Accu-Chek was 32. Mealtime insulin was held and patient was given D50. nausea and vomiting are improving; patient will be advanced to a regular diabetic diet. Review of Systems Review of Systems: All systems reviewed & are unremarkable except as noted in HPI and below Constitutional: Constitutional: Reports no additional constitutional complaints Eyes: Eyes: Reports no additional eye complaints ENT: Reports system reviewed and no additional complaints, except as documented Cardiovascular: Cardiovascular: Reports no additional cardiovascular complaints Respiratory: Respiratory: Reports no additional respiratory complaints Gastrointestinal: Gastrointestinal: Reports no additional gastrointestinal complaints Genitourinary: Genitourinary: Reports no additional female genitourinary complaints Musculoskeletal: Musculoskeletal: Reports no additional musculoskeletal complaints Integumentary/Breasts: Skin/Breast: Reports system reviewed and no additional complaints, except as docu Neurologic: Reports system reviewed and no additional complaints, except as documented Psychiatric: Psychiatric: Reports no additional psychiatric complaints Endocrine: Endocrine: Reports no additional endocrine complaints Hematologic/Lymphatic: Hematologic/Lymphatic: Reports no additional hematologic/lymphatic complaints Allergic/Immunologic: Allergic/Immunologic: Reports no additional allergic/immunologic complaints Exam Narrative: General: alert, afebrile Head: normocephalic, atraumatic Eyes: EOMI bilaterally, anicteric, no injection ENT: dry mucous membranes, oropharynx patent, no rhinorrhea Neck: supple, trachea midline, no JVD Chest: equal chest rise bilaterally, no chest wall trauma noted :
[2021-05-17 16:16] LABS: Glucose Point of Care 161 mg/dl (65-105)
[2021-05-17] MEDS: ACETAMINOPHEN 325 MG TABLET 650 MG PO (17:15)
[2021-05-17 22:17] LABS: Glucose Point of Care 137 mg/dl (65-105)
[2021-05-18] VITALS (12 sets, daily range): BP systolic 114–150; BP diastolic 50–89; PULSE 98–108; RESP 18–20; TEMP 36.5–36.8; O2SAT 98–100
--- NOTE | 2021-05-18 01:57 | PC.NURSE ---
Daylight Savings Time For Daylight Savings Time Ending in the Fall - Clocks are moved back. For Daylight Savings Time Beginning in the Spring - Clocks are moved ahead. For [facility], the time of change occurs at 0200 hrs. Time is taken from the chair maker. This entry on the patient's chart recognizes the change in time reflected during documentation. Example: 2 entries for vital signs may be charted for 0200 hrs.
[2021-05-18] MEDS: ACETAMINOPHEN 325 MG TABLET 650 MG PO ×2 (05:15→18:41)
[2021-05-18] MEDS: SODIUM CHLORIDE 0.9% IV 1,000 ML 100 ML IV CONT ×2 (06:32→22:10)
[2021-05-18 07:49] LABS: Glucose Point of Care 136 mg/dl (65-105)
[2021-05-18] MEDS: ENOXAPARIN 40 MG/0.4 ML SYRINGE SUB-Q (08:07)
--- NOTE | 2021-05-18 09:08 | PM.PNORT ---
Progress Note: A&P Additional Plan doing well post-op Cont strict [facility] SNF for d/c Cont medical DVT proph for 30 days post op f/u with leb within 10 days of d/c Subjective Subjective Date/Time Seen: 05/18/21 09:08 Pt transitioning out of bed. No C/O doing well Exam Extrem: Other: Left Hip Dressing C+D thigh supple NV intact distally Calves supple and NT Objective Data Vital Signs Vital Signs: Vital Signs - 24 hr 05/17/21 12:00 05/17/21 14:00 05/17/21 16:00 Temperature 36.2 C L 36.2 C L Pulse Rate 110 H 111 H 110 H Respiratory Rate 20 20 Blood Pressure 134/60 142/66 H Pulse Oximetry 95 98 05/17/21 20:00 05/18/21 00:00 05/18/21 04:00 Temperature Pulse Rate 105 H 107 H 104 H Respiratory Rate Blood Pressure Pulse Oximetry Intake/Output Intake/Output: Intake & Output 05/15/21 05/16/21 05/17/21 05/18/21 23:59 23:59 23:59 22:59 Intake Total 250 1200 3620 1750 Output Total 70 350 750 800 Balance 900 284 6403 950 Meds/Results Medications: Active Medications Generic Name Dose Route Start Last Admin Trade Name Freq PRN Reason Stop Dose Admin Acetaminophen 650 mg 05/17/21 12:27 05/18/21 05:15 Acetaminophen 325 Mg Tablet PO 650 mg Q4H PRN Administration Mild Pain (1-3) or Fever Dextrose 12.5 gm 05/15/21 07:29 05/17/21 12:01 Dextrose 50% 25 Gm/50 Ml Syringe IV PUSH 12.5 gm PRN PRN Administration Hypoglycemia Protocol Diphenhydramine HCl 25 mg 05/16/21 11:38 05/16/21 21:49 Diphenhydramine Hcl Inj 50 Mg/Ml Vial IV PUSH 25 mg Q4H PRN Administration Nausea Docusate Sodium 100 mg 05/15/21 17:22 05/18/21 08:07 Docusate Sodium 100 Mg Capsule PO Not Given BID DAVINA Enoxaparin Sodium 40 mg 05/16/21 09:00 05/18/21 08:07 Enoxaparin 40 Mg/0.4 Ml Syringe SUB-Q 40 mg DAILY DAVINA Administration Fentanyl Citrate 25 mcg 05/16/21 18:36 05/17/21 22:37 Fentanyl Citrate Inj (*Crx) 100 Mcg/2 Ml Vial IV PUSH 25 mcg Q4H PRN Administration Pain Rated 7-10 Glucagon 1 mg 05/15/21 07:29 Glucagon For Inj 1 Mg Vial IM PRN PRN Hypoglycemia Protocol Glucose 15 gm 05/15/21 07:29 Glucose Oral Gel 15 Gm Of Glucse In 37.5 Gm Tube PO PRN PRN Hypoglycemia Protocol Dextrose 1,000 mls @ 100 mls/hr 05/15/21 07:29 Dextrose 5% 1,000 Ml IVPB PRN PRN Hypoglycemia Protocol Sodium Chloride 1,000 mls @ 100 mls/hr 05/15/21 07:30 05/18/21 06:32 Normal Saline Iv IV CONT 100 mls/hr .Q10H DAVINA Administration Ceftriaxone Sodium/Dextrose 1 gm in 50 mls @ 100 mls/hr 05/16/21 21:00 05/17/21 20:26 Rocephin 1 Gm/D5w 50 Ml IVPB 100 mls/hr Q24H DAVINA Administration Insulin Aspart 15 units 05/15/21 08:00 05/17/21 12:12 Insulin Aspart (*Bkc) 100 Units/Ml SUB-Q Not Given TIDWM [facility] Insulin Aspart 4 - 8 units 05/15/21 08:00 05/18/21 08:06 Insulin Aspart (*Bkc) 100 Units/Ml SUB-Q Not Given TIDWM [facility] Protocol Insulin Glargine 50 units 05/15/21 21:00 05/17/21 20:29 Insulin Glargine (*Bkc) 100 Units/Ml SUB-Q Not Given HS [facility] Labetalol HCl 10 mg 05/15/21 07:33 05/15/21 10:02 Labetalol Hcl Inj 100 Mg/20 Ml Vial IV PUSH 10 mg Q6HR PRN Administration for SBP >170 Magnesium Hydroxide 30 ml 05/15/21 17:22 Magnesium Hydroxide Susp 30 Ml Udc PO BID PRN Constipation Naloxone HCl 0.1 mg 05/15/21 17:22 Naloxone Hcl 0.4 Mg/Ml Vial IV PUSH Q2M PRN Opiate Reversal Ondansetron HCl 4 mg 05/16/21 00:22 05/17/21 22:38 Ondansetron Inj 4 Mg/2 Ml Vial IV PUSH 4 mg Q4H PRN Administration Nausea And Vomiting Radiology Results: ITS Impressions Chest X-Ray 05/15/21 08:08 IMPRESSION: 1. No acute cardiopulmonary disease. Hip/Pelvis X-Ray 05/15/21 08:28 IMPRESSION: 1. Mildly displaced and angulated comminuted intratrochanteric fracture of the proximal right femur.
[2021-05-18 11:40] LABS: Basophils Percent Auto 0.6 % (0.2-1.2); Eosinophils Absolute Auto 0.3 K/mm3 (0-0.3); Immature Granulocyte Absolute 0.03 K/mm3 (0.00-0.031); Immature Granulocyte Percent A 0.5 % (0-0.5); Lymphocytes Absolute Auto 1.37 K/mm3 (0.9-3.2); Lymphocytes Percent Auto 21.3 % (18.3-44.2); Mean Corpuscular Hemoglobin 31.8 pg (26-34); Mean Platelet Volume 9.4 fl (7.4-10.4); Monocytes Absolute Auto 0.6 K/mm3 (0.1-0.6); Monocytes Percent Auto 9.8 % (2.6-8.5); Neutrophils Absolute Auto 4.1 K/mm3 (1.3-6.7); Neutrophils Percent Auto 63.8 % (45.5-73.1); Nucleated Red Blood Cells Perc 0.5 % (0.0-0.2); Platelet Count Result 124 k/mm3 (150-375); Red Blood Count 2.01 M/mm3 (4.2-5.4); Red Cell Distribution Width 13.1 % (11.5-14.5); White Blood Count 6.4 K/mm3 (4.5-10.0)
[2021-05-18 11:48] LABS: Anion Gap 5 mmol/L (8-16); Blood Urea Nitrogen 20 mg/dL (7-17); Calcium 7.7 mg/dL (8.4-10.2); Carbon Dioxide 24 mmol/L (22-30); Chloride 109 mmol/L (98-107); Estimated CRCL calculation 31 ml/min; Estimated Glomerular Filt Rate 49; Glucose 167 mg/dL (65-110); Potassium 3.9 mmol/L (3.4-5.0); Sodium 138 mmol/L (137-145)
[2021-05-18 11:49] LABS: Hematocrit 18.3 % (37.0-47.0); Hemoglobin 6.4 g/dL (12.0-15.0)
--- NOTE | 2021-05-18 11:56 | PC.NURSE ---
Left message about H&H results to MD Bejarano, awaiting call back.
--- NOTE | 2021-05-18 12:00 | PC.NURSE ---
1 unit ordered by MD Bejarano.
[2021-05-18 12:33] LABS: Glucose Point of Care 170 mg/dl (65-105)
[2021-05-18] MEDS: TUBING, BLOOD PLUM PUMP TUBING 1 EACH XX (12:55)
[2021-05-18] MEDS: SODIUM CHLORIDE 0.9% IV 250 ML 30 ML IV CONT (13:28)
[2021-05-18 17:01] LABS: Glucose Point of Care 174 mg/dl (65-105)
--- NOTE | 2021-05-18 18:10 | PM.IMPN ---
Progress Note: A&P Assessment and Plan (1) Closed displaced fracture of right femoral neck: Code(s): S72.001A - Fracture of unspecified part of neck of right femur, initial encounter for closed fracture Assessment and Plan: Patient is postop day 3 fracture repair. Under management per Ortho. (2) HTN (hypertension), benign: Code(s): I10 - Essential (primary) hypertension Status: Acute Assessment and Plan: consultation for pressure is well controlled without blood pressure medication. BP 134-137 over 60-70. (3) Long-term current use of insulin for diabetes mellitus: Code(s): Z79.4 - [facility] (current) use of insulin; E11.9 - Type 2 diabetes mellitus without complications Status: Acute Assessment and Plan: Currently patient is on Lantus 50 units subQ q.h.s. and mealtime insulin aspart 15 units t.i.d. with meals. Fasting blood sugar 167. Accu-Check in the 170-174 range. (4) Vitamin D deficiency: Code(s): E55.9 - Vitamin D deficiency, unspecified Status: Acute Assessment and Plan: Supplemented. (5) ROSY (acute kidney injury): Code(s): N17.9 - Acute kidney failure, unspecified Status: Acute Assessment and Plan: Creatinine is improving from 1.2-1.1. Monitor kidney function in a.m. labs. (6) Abnormal urinalysis: Code(s): R82.90 - Unspecified abnormal findings in urine Status: Acute (7) Anemia: Code(s): D64.9 - Anemia, unspecified Status: Acute Assessment and Plan: Send an anemia workup. Consult GI in a.m.. Patient scheduled for 1 unit PRBC. Repeat hemoglobin and hematocrit tonight. Additional Plan 1. Displaced, comminuted intratrochanteric fracture of the right femur: -patient He is postop day 2; management by Orthopedics -pain management with IV fentanyl 25 mg q.3 hours alternating with IV Tylenol -once patient gets the surgery her pain management can be further optimized to p.o. regimen 2. ROSY or possible CKD: -creatinine noted to be 1.2 -continue monitor 3. Preop screening: -patient is cleared for surgery with RCRI score of 1, putting her at a 6% risk of cardiac event post surgery 4. DVT prophylax: -Lovenox 40 mg daily.. Subjective Date/time seen: 05/18/21 18:10 S: patient was examined at the bedside. She is feeling weak. Review of Systems Review of Systems: All systems reviewed & are unremarkable except as noted in HPI and below Constitutional: Constitutional: Reports as per HPI and Reports no additional constitutional complaints Eyes: Eyes: Reports as per HPI, Reports no additional eye complaints and Denies loss of vision ENT: Reports system reviewed and no additional complaints, except as documented, Reports as per HPI and Denies epistaxis Cardiovascular: Cardiovascular: Reports as per HPI, Reports no additional cardiovascular complaints and Denies leg edema Respiratory: Respiratory: Reports as per HPI, Reports no additional respiratory complaints, Denies cough, Denies dyspnea, Reports dyspnea on exertion and Denies wheezing Gastrointestinal: Gastrointestinal: Reports as per HPI, Reports no additional gastrointestinal complaints, Denies abdominal pain, Denies diarrhea, Reports nausea and Reports vomiting Genitourinary: Genitourinary: Reports no additional female genitourinary complaints Musculoskeletal: Musculoskeletal: Reports no additional musculoskeletal complaints Integumentary/Breasts: Skin/Breast: Reports system reviewed and no additional complaints, except as docu Neurologic: Reports system reviewed and no additional complaints, except as documented Psychiatric: Psychiatric: Reports no additional psychiatric complaints Endocrine: Endocrine: Reports no additional endocrine complaints Hematologic/Lymphatic: Hematologic/Lymphatic: Reports no additional hematologic/lymphatic complaints Comments: anemia. Allergic/Immunologic: Allergic/Immunologic: Reports no ronen
[2021-05-18 18:52] LABS: Hematocrit 22.7 % (37.0-47.0); Hemoglobin 8.3 g/dL (12.0-15.0)
[2021-05-18] MEDS: INSULIN GLARGINE (*BKC) 100 UNITS/ML 50 UNITS SUB-Q (21:00)
[2021-05-18 21:13] LABS: Glucose Point of Care 173 mg/dl (65-105)
[2021-05-19 06:00] VITALS: BP 154/78; PULSE 91; RESP 18; TEMP 36.3; O2SAT 100
--- NOTE | 2021-05-19 07:05 | PM.IMPN ---
Progress Note: A&P Assessment and Plan (1) Closed displaced fracture of right femoral neck: Code(s): S72.001A - Fracture of unspecified part of neck of right femur, initial encounter for closed fracture Assessment and Plan: Patient is postop day 4 fracture repair. Under management per Ortho. PAtient doing well with PT. Recommend SNF upon discharge. (2) HTN (hypertension), benign: Code(s): I10 - Essential (primary) hypertension Status: Acute Assessment and Plan: consultation for pressure is well controlled without blood pressure medication. BP 154/78-170/100. (3) Long-term current use of insulin for diabetes mellitus: Code(s): Z79.4 - [facility] use of insulin; E11.9 - Type 2 diabetes mellitus without complications Status: Acute Assessment and Plan: Currently patient is on Lantus 50 units subQ q.h.s. and mealtime insulin aspart 15 units t.i.d. with meals. Accu-Check in the 97-110 range. (4) Vitamin D deficiency: Code(s): E55.9 - Vitamin D deficiency, unspecified Status: Acute Assessment and Plan: Supplemented. (5) ROSY (acute kidney injury): Code(s): N17.9 - Acute kidney failure, unspecified Status: Acute Assessment and Plan: Creatinine is improving from 1.2-1.1. Monitor kidney function in a.m. labs. (6) Abnormal urinalysis: Code(s): R82.90 - Unspecified abnormal findings in urine Status: Acute (7) Anemia: Code(s): D64.9 - Anemia, unspecified Status: Acute Assessment and Plan: Anemia : Hb stale after 1 unit PRBC. Likely postoperative anemia related to acute blood loss, in the setting of hip surgery. GI consulted. NO evidence of current GI bleeding. Patient to undergo age-appropriate colonoscopy screening 6-8 weeks post discharge. Additional Plan 4. DVT prophylax: -Lovenox 40 mg daily.. Subjective Date/time seen: 05/19/21 07:05 s: Patient was examined at the bedside. She was nauseous, even vomited once and reported dizziness. Patient seen during PT; she reported adequate pain control. Review of Systems Review of Systems: All systems reviewed & are unremarkable except as noted in HPI and below Constitutional: Constitutional: Reports as per HPI and Reports no additional constitutional complaints Eyes: Eyes: Reports as per HPI, Reports no additional eye complaints and Denies loss of vision ENT: Reports system reviewed and no additional complaints, except as documented, Reports as per HPI and Denies epistaxis Cardiovascular: Cardiovascular: Reports as per HPI, Reports no additional cardiovascular complaints, Denies leg edema, Denies dyspnea and Reports dyspnea on exertion Respiratory: Respiratory: Reports as per HPI, Reports no additional respiratory complaints, Denies cough, Denies dyspnea, Reports dyspnea on exertion and Denies wheezing Gastrointestinal: Gastrointestinal: Reports as per HPI, Reports no additional gastrointestinal complaints, Denies abdominal pain, Denies diarrhea, Reports nausea and Reports vomiting Genitourinary: Genitourinary: Reports no additional female genitourinary complaints Musculoskeletal: Musculoskeletal: Reports no additional musculoskeletal complaints Integumentary/Breasts: Skin/Breast: Reports system reviewed and no additional complaints, except as docu Neurologic: Reports system reviewed and no additional complaints, except as documented and Denies loss of vision Psychiatric: Psychiatric: Reports no additional psychiatric complaints Endocrine: Endocrine: Reports no additional endocrine complaints Hematologic/Lymphatic: Hematologic/Lymphatic: Reports no additional hematologic/lymphatic complaints Allergic/Immunologic: Allergic/Immunologic: Reports no additional allergic/immunologic complaints and Denies wheezing Exam Narrative: General: alert, afebrile Head: normocephalic, atraumatic Eyes: EOMI bilaterally, anicteric, no injection ENT:
[2021-05-19] MEDS: SODIUM CHLORIDE 0.9% IV 1,000 ML 100 ML IV CONT ×2 (08:09→17:06)
[2021-05-19] MEDS: ENOXAPARIN 40 MG/0.4 ML SYRINGE SUB-Q (09:26)
[2021-05-19] MEDS: DOCUSATE SODIUM 100 MG CAPSULE PO ×2 (09:26→17:03)
--- NOTE | 2021-05-19 11:11 | PM.PNORT ---
Progress Note: A&P Additional Plan doing well s/p Gamma nail fixation of hip fx SNF for d/c DVT proph medical for 30 days post-op F/U with [facility] within 10 days of d/c Subjective Subjective Date/Time Seen: 05/19/21 11:11 Principal diagnosis: Gamma Nail of hip fx Interval history: Pt doing well this am Eating Bfast Pain well controlled Exam Extrem: Other: Hip exam op side dressing C/D/I Thigh supple and NT Calves supple and NT moves ankle and toes NV intact Objective Data Vital Signs Vital Signs: Vital Signs - 24 hr 05/18/21 12:00 05/18/21 12:37 05/18/21 13:04 Temperature 36.7 C Pulse Rate 103 H 103 H 102 H Respiratory Rate 18 Blood Pressure 122/65 Pulse Oximetry 98 05/18/21 14:30 05/18/21 14:45 05/18/21 15:46 Temperature 36.5 C 36.7 C 36.8 C Pulse Rate 106 H 102 H 108 H Respiratory Rate 18 18 18 Blood Pressure 114/58 L 123/61 150/50 H Pulse Oximetry 99 99 99 05/18/21 16:46 05/18/21 17:35 05/18/21 18:00 Temperature 36.7 C 36.6 C 36.5 C Pulse Rate 100 100 98 Respiratory Rate 18 18 18 Blood Pressure 150/74 H 148/81 H 146/89 H Pulse Oximetry 99 99 100 05/19/21 06:00 Temperature 36.3 C L Pulse Rate 91 Respiratory Rate 18 Blood Pressure 154/78 H Pulse Oximetry 100 Intake/Output Intake/Output: Intake & Output 05/17/21 05/18/21 05/18/21 05/19/21 00:59 00:59 23:59 23:59 Intake Total 1200 Output Total 1500 Balance -300 Meds/Results Medications: Active Medications Generic Name Dose Route Start Last Admin Trade Name Freq PRN Reason Stop Dose Admin Acetaminophen 650 mg 05/17/21 12:27 05/18/21 18:41 Acetaminophen 325 Mg Tablet PO 650 mg Q4H PRN Administration Mild Pain (1-3) or Fever Dextrose 12.5 gm 05/15/21 07:29 05/17/21 12:01 Dextrose 50% 25 Gm/50 Ml Syringe IV PUSH 12.5 gm PRN PRN Administration Hypoglycemia Protocol Diphenhydramine HCl 25 mg 05/16/21 11:38 05/16/21 21:49 Diphenhydramine Hcl Inj 50 Mg/Ml Vial IV PUSH 25 mg Q4H PRN Administration Nausea Docusate Sodium 100 mg 05/15/21 17:22 05/19/21 09:26 Docusate Sodium 100 Mg Capsule PO 100 mg BID DAVINA Administration Enoxaparin Sodium 40 mg 05/16/21 09:00 05/19/21 09:26 Enoxaparin 40 Mg/0.4 Ml Syringe SUB-Q 40 mg DAILY DAVINA Administration Fentanyl Citrate 25 mcg 05/16/21 18:36 05/17/21 22:37 Fentanyl Citrate Inj (*Crx) 100 Mcg/2 Ml Vial IV PUSH 25 mcg Q4H PRN Administration Pain Rated 7-10 Glucagon 1 mg 05/15/21 07:29 Glucagon For Inj 1 Mg Vial IM PRN PRN Hypoglycemia Protocol Glucose 15 gm 05/15/21 07:29 Glucose Oral Gel 15 Gm Of Glucse In 37.5 Gm Tube PO PRN PRN Hypoglycemia Protocol Dextrose 1,000 mls @ 100 mls/hr 05/15/21 07:29 Dextrose 5% 1,000 Ml IVPB PRN PRN Hypoglycemia Protocol Sodium Chloride 1,000 mls @ 100 mls/hr 05/15/21 07:30 05/19/21 08:09 Normal Saline Iv IV CONT 100 mls/hr .Q10H DAVINA Administration Ceftriaxone Sodium/Dextrose 1 gm in 50 mls @ 100 mls/hr 05/16/21 21:00 05/18/21 22:07 Rocephin 1 Gm/D5w 50 Ml IVPB Infused Q24H [facility] Infusion Insulin Aspart 15 units 05/15/21 08:00 05/17/21 12:12 Insulin Aspart (*Bkc) 100 Units/Ml SUB-Q Not Given [facility] Insulin Aspart 4 - 8 units 05/15/21 08:00 05/19/21 09:15 Insulin Aspart (*Bkc) 100 Units/Ml SUB-Q Not Given [facility] Protocol Insulin Glargine 50 units 05/15/21 21:00 05/18/21 21:00 Insulin Glargine (*Bkc) 100 Units/Ml SUB-Q 50 units HS DAVINA Administration Labetalol HCl 10 mg 05/15/21 07:33 05/15/21 10:02 Labetalol Hcl Inj 100 Mg/20 Ml Vial IV PUSH 10 mg Q6HR PRN Administration for SBP >170 Magnesium Hydroxide 30 ml 05/15/21 17:22 Magnesium Hydroxide Susp 30 Ml Udc PO BID PRN Constipation Naloxone HCl 0.1 mg 05/15/21 17:22 Naloxone Hcl 0.4 Mg/Ml Vial IV PUSH Q2M PRN Opiate
[2021-05-19] MEDS: fentaNYL CITRATE INJ (*CRX) 100 MCG/2 ML VIAL 25 MCG IV PUSH ×2 (12:19→17:02)
[2021-05-19 12:29] LABS: Glucose Point of Care 110 mg/dl (65-105)
--- NOTE | 2021-05-19 12:32 | WPDGICN ---
Assessment and Plan Assessment and plan (1) Anemia: Code(s): D64.9 - Anemia, unspecified Status: Acute Assessment and Plan: because of timing, it appears that the anemia is due to intraoperative blood loss. This amount of blood loss is not unusual with an orthopedic procedure. The patient has shown no signs of gastrointestinal bleeding but I told her that it would be prudent to rule out gastrointestinal pathology. Has been many years since she had a colonoscopy. It would not be prudent or feasible to do so now, I told her that in a couple of months, after she has finished her therapy that we should consider EGD and colonoscopy to rule out gastrointestinal pathology. (2) Nausea and vomiting: Code(s): R11.2 - Nausea with vomiting, unspecified Status: Acute Assessment and Plan: she states that the nausea all began after admission and she suspects that is due to the anesthetic and or pain medications. I believe that this is probably the case. If however her nausea vomiting persist then I will do EGD during this hospitalization GI Consult Note Consult date/time: 05/19/21 12:32 HPI: Amy Dhaliwal is a 75 year old female Was admitted after she fell at home going towards the bed. She sustained a fracture of the right hip which was repaired 4 days ago. She has had drop in hemoglobin from 12.3 on admission to 6.4 yesterday. Now, after transfusion her hemoglobin is 8.3. She states she has never been anemic before. She denies seen blood her stools are having black or tarry stools. She denies any history of ulcers. She states that since admission she has been quite nauseated and does not feel like eating. She attributes this to the anesthesia and/or pain medications. She denies dysphagia. She denies recent weight loss. She has no history of other digestive diseases such as liver disease or pancreatic disease. She does not use anti-inflammatory medications on a regular basis but does occasionally Review of Systems Review of Systems: All systems reviewed & are unremarkable except as noted in HPI and below PMFSH Past Medical History Medical History HTN (hypertension), benign Type 2 diabetes mellitus with hyperglycemia Surgical History Surgical History History of section, low transverse Status post laparoscopic cholecystectomy Family History Family History Father Family history of diabetes mellitus in first degree relative Family history of heart disease in male family member before age 55 Family history of congestive heart failure Mother Family history of malignant neoplasm of uterus Family history of malignant neoplasm of ovary Family history of malignant neoplasm Sibling Family history of malignant neoplasm Father Family history of type 2 diabetes mellitus Father Family history of type 2 diabetes mellitus Other Diabetes mellitus Hypertension Social History Social History Smoking status: Never smoker Second hand tobacco smoke exposure: No Alcohol intake: never Substance use: never Substance use type: does not use Gender identity (if verbalized by the patient): Female Spiritual care concerns: No Meds Home Medications and Allergies Home Medications Medication Instructions Recorded Confirmed Type insulin glargine U-300 conc 300 35 unit SUB-Q QAM ml 07/19/19 05/15/21 History unit/mL (3 mL) subcutaneous pen insulin lispro 200 unit/mL (3 mL) 45 unit SUB-Q .sliding scale ml 07/19/19 05/15/21 History subcutaneous pen cholecalciferol (vitamin D3) 50 mcg PO DAILY 05/15/21 05/15/21 History [Vitamin D3] Allergies Allergy/AdvReac Type Severity Reaction Status Date / Time No Known Allergies Allergy Verified
[2021-05-19 14:00] VITALS: BP 170/100; PULSE 98; RESP 21; TEMP 36.1; O2SAT 100
[2021-05-19 14:37] VITALS: PULSE 92
[2021-05-19] MEDS: LABETALOL HCL INJ 100 MG/20 ML VIAL 10 MG IV PUSH (14:37)
[2021-05-19 16:16] LABS: Glucose Point of Care 97 mg/dl (65-105)
[2021-05-19] MEDS: ONDANSETRON INJ 4 MG/2 ML VIAL IV PUSH (17:02)
[2021-05-19 22:07] VITALS: PULSE 90; RESP 18; O2SAT 99
[2021-05-19 22:22] LABS: Glucose Point of Care 82 mg/dl (65-105)
[2021-05-20] MEDS: fentaNYL CITRATE INJ (*CRX) 100 MCG/2 ML VIAL 25 MCG IV PUSH ×3 (02:54→21:09)
[2021-05-20 06:35] LABS: Basophils Percent Auto 0.5 % (0.2-1.2); Eosinophils Absolute Auto 0.2 K/mm3 (0-0.3); Eosinophils Percent Auto 3.8 % (0-4.4); Hematocrit 27.4 % (37.0-47.0); Hemoglobin 9.8 g/dL (12.0-15.0); Immature Granulocyte Absolute 0.07 K/mm3 (0.00-0.031); Immature Granulocyte Percent A 1.3 % (0-0.5); Lymphocytes Absolute Auto 0.96 K/mm3 (0.9-3.2); Lymphocytes Percent Auto 17.6 % (18.3-44.2); Mean Corpuscular HGB Conc 35.8 g/dl (32-36); Mean Corpuscular Hemoglobin 31.1 pg (26-34); Mean Platelet Volume 9.3 fl (7.4-10.4); Monocytes Absolute Auto 0.6 K/mm3 (0.1-0.6); Neutrophils Absolute Auto 3.6 K/mm3 (1.3-6.7); Neutrophils Percent Auto 65.8 % (45.5-73.1); Platelet Count Result 162 k/mm3 (150-375); Red Blood Count 3.15 M/mm3 (4.2-5.4); Red Cell Distribution Width 13.5 % (11.5-14.5); White Blood Count 5.5 K/mm3 (4.5-10.0)
[2021-05-20 07:01] LABS: Anion Gap 8 mmol/L (8-16); Blood Urea Nitrogen 13 mg/dL (7-17); Calcium 8.1 mg/dL (8.4-10.2); Carbon Dioxide 25 mmol/L (22-30); Chloride 104 mmol/L (98-107); Estimated CRCL calculation 47 ml/min; Estimated Glomerular Filt Rate > 60; Glucose 96 mg/dL (65-110); Potassium 3.3 mmol/L (3.4-5.0); Sodium 137 mmol/L (137-145)
[2021-05-20 07:57] LABS: Glucose Point of Care 85 mg/dl (65-105)
--- NOTE | 2021-05-20 08:13 | WPDGIPROGNO ---
Progress Note: A&P Assessment and Plan (1) Nausea and vomiting: Code(s): R11.2 - Nausea with vomiting, unspecified Status: Acute Assessment and Plan: Were going to advance her diet today and see how she does. If she begins vomiting again we would need to do EGD (2) Anemia: Code(s): D64.9 - Anemia, unspecified Status: Acute Assessment and Plan: her hemoglobin today is 9.8, stable. I told her that we would consider colonoscopy when she has recovered from her hip surgery and Rehabilitation, perhaps after the of the year Subjective Date/time seen: 05/20/21 08:13 she states that she was able to eat some crackers last night but still does not have a great appetite. She has had no vomiting during the night. I told her that if symptoms persist I would perform an EGD. She may have developed a stress ulcer. She thinks however she is on the road to improvement. Review of Systems Review of Systems: All systems reviewed & are unremarkable except as noted in HPI and below Exam Const: General: alert Orientation/consciousness: patient oriented x3 Resp: Auscultation: clear to auscultation bilaterally Cardio: Rhythm: regular rhythm GI: GI Palp: Yes Soft to palpation and No Tenderness to palpation present (GI) Neuro: General: patient oriented x3 Objective Data Vital Signs Vital Signs: Vital Signs - 24 hr 05/19/21 14:00 05/19/21 14:37 05/19/21 22:07 Temperature 36.1 C L Pulse Rate 98 92 90 Respiratory Rate 21 H 18 Blood Pressure 170/100 H Pulse Oximetry 100 99 Intake/Output Intake/Output: Intake & Output 05/18/21 05/18/21 05/19/21 05/20/21 00:59 23:59 23:59 23:59 Intake Total 2490 750 Output Total 1500 500 Balance 990 250 Meds/Results Medications: Active Medications Generic Name Dose Route Start Last Admin Trade Name Freq PRN Reason Stop Dose Admin Acetaminophen 650 mg 05/17/21 12:27 05/18/21 18:41 Acetaminophen 325 Mg Tablet PO 650 mg Q4H PRN Administration Mild Pain (1-3) or Fever Dextrose 12.5 gm 05/15/21 07:29 05/17/21 12:01 Dextrose 50% 25 Gm/50 Ml Syringe IV PUSH 12.5 gm PRN PRN Administration Hypoglycemia Protocol Diphenhydramine HCl 25 mg 05/16/21 11:38 05/16/21 21:49 Diphenhydramine Hcl Inj 50 Mg/Ml Vial IV PUSH 25 mg Q4H PRN Administration Nausea Docusate Sodium 100 mg 05/15/21 17:22 05/19/21 17:03 Docusate Sodium 100 Mg Capsule PO 100 mg BID DAVINA Administration Enoxaparin Sodium 40 mg 05/16/21 09:00 05/19/21 09:26 Enoxaparin 40 Mg/0.4 Ml Syringe SUB-Q 40 mg DAILY DAVINA Administration Fentanyl Citrate 25 mcg 05/16/21 18:36 05/20/21 02:54 Fentanyl Citrate Inj (*Crx) 100 Mcg/2 Ml Vial IV PUSH 25 mcg Q4H PRN Administration Pain Rated 7-10 Glucagon 1 mg 05/15/21 07:29 Glucagon For Inj 1 Mg Vial IM PRN PRN Hypoglycemia Protocol Glucose 15 gm 05/15/21 07:29 Glucose Oral Gel 15 Gm Of Glucse In 37.5 Gm Tube PO PRN PRN Hypoglycemia Protocol Dextrose 1,000 mls @ 100 mls/hr 05/15/21 07:29 Dextrose 5% 1,000 Ml IVPB PRN PRN Hypoglycemia Protocol Sodium Chloride 1,000 mls @ 100 mls/hr 05/15/21 07:30 05/19/21 17:06 Normal Saline Iv IV CONT 100 mls/hr .Q10H DAVINA Administration Ceftriaxone Sodium/Dextrose 1 gm in 50 mls @ 100 mls/hr 05/16/21 21:00 05/19/21 22:00 Rocephin 1 Gm/D5w 50 Ml IVPB Infused Q24H [facility] Infusion Insulin Aspart 15 units 05/15/21 08:00 05/17/21 12:12 Insulin Aspart (*Bkc) 100 Units/Ml SUB-Q Not Given [facility] Insulin Aspart 4 - 8 units 05/15/21 08:00 05/20/21 08:01 Insulin Aspart (*Bkc) 100 Units/Ml SUB-Q Not Given [facility] Protocol Insulin Glargine 50 units 05/15/21 21:00 05/20/21 06:11 Insulin Glargine (*Bkc) 100 Units/Ml SUB-Q Not Given HS [facility] Labetalol HCl 10 mg 05/15/21 07:33 05/19/21 14:37 Labetalo
[2021-05-20] MEDS: DOCUSATE SODIUM 100 MG CAPSULE PO ×2 (08:36→16:43)
[2021-05-20] MEDS: ENOXAPARIN 40 MG/0.4 ML SYRINGE SUB-Q (08:36)
--- NOTE | 2021-05-20 11:08 | PM.PNORT ---
Progress Note: A&P Additional Plan Post Op Gamma Nail Nausea Medicine aware PT progressing slowly able to stand and is working on TTWB. She has good rehab potential and will do very well in SNF Cont d/c planning Stable orthopedically OK for d/c from ortho POV. Subjective Subjective Date/Time Seen: 05/20/21 11:08 Pt is nauseous. Add emesis yest am. In PT she is advancing slowly. Able to stand with walker and working on maintaining TTWB'ing Exam Extrem: Other: Op Hip Dressing C+D thigh supple and NT Calves NT bilat NV intact distally Gentle log roll with less pain today Objective Data Vital Signs Vital Signs: Vital Signs - 24 hr 05/19/21 14:00 05/19/21 14:37 05/19/21 22:07 Temperature 36.1 C L Pulse Rate 98 92 90 Respiratory Rate 21 H 18 Blood Pressure 170/100 H Pulse Oximetry 100 99 Intake/Output Intake/Output: Intake & Output 05/18/21 05/18/21 05/19/21 05/20/21 00:59 23:59 23:59 23:59 Intake Total 2490 870 Output Total 1500 500 Balance 990 370 Meds/Results Medications: Active Medications Generic Name Dose Route Start Last Admin Trade Name Freq PRN Reason Stop Dose Admin Acetaminophen 650 mg 05/17/21 12:27 05/18/21 18:41 Acetaminophen 325 Mg Tablet PO 650 mg Q4H PRN Administration Mild Pain (1-3) or Fever Dextrose 12.5 gm 05/15/21 07:29 05/17/21 12:01 Dextrose 50% 25 Gm/50 Ml Syringe IV PUSH 12.5 gm PRN PRN Administration Hypoglycemia Protocol Diphenhydramine HCl 25 mg 05/16/21 11:38 05/16/21 21:49 Diphenhydramine Hcl Inj 50 Mg/Ml Vial IV PUSH 25 mg Q4H PRN Administration Nausea Docusate Sodium 100 mg 05/15/21 17:22 05/20/21 08:36 Docusate Sodium 100 Mg Capsule PO 100 mg BID DAVINA Administration Enoxaparin Sodium 40 mg 05/16/21 09:00 05/20/21 08:36 Enoxaparin 40 Mg/0.4 Ml Syringe SUB-Q 40 mg DAILY DAVINA Administration Fentanyl Citrate 25 mcg 05/16/21 18:36 05/20/21 02:54 Fentanyl Citrate Inj (*Crx) 100 Mcg/2 Ml Vial IV PUSH 25 mcg Q4H PRN Administration Pain Rated 7-10 Glucagon 1 mg 05/15/21 07:29 Glucagon For Inj 1 Mg Vial IM PRN PRN Hypoglycemia Protocol Glucose 15 gm 05/15/21 07:29 Glucose Oral Gel 15 Gm Of Glucse In 37.5 Gm Tube PO PRN PRN Hypoglycemia Protocol Dextrose 1,000 mls @ 100 mls/hr 05/15/21 07:29 Dextrose 5% 1,000 Ml IVPB PRN PRN Hypoglycemia Protocol Sodium Chloride 1,000 mls @ 100 mls/hr 05/15/21 07:30 05/19/21 17:06 Normal Saline Iv IV CONT 100 mls/hr .Q10H DAVINA Administration Ceftriaxone Sodium/Dextrose 1 gm in 50 mls @ 100 mls/hr 05/16/21 21:00 05/19/21 22:00 Rocephin 1 Gm/D5w 50 Ml IVPB Infused Q24H [facility] Infusion Insulin Aspart 15 units 05/15/21 08:00 05/17/21 12:12 Insulin Aspart (*Bkc) 100 Units/Ml SUB-Q Not Given [facility] Insulin Aspart 4 - 8 units 05/15/21 08:00 05/20/21 08:01 Insulin Aspart (*Bkc) 100 Units/Ml SUB-Q Not Given [facility] Protocol Insulin Glargine 50 units 05/15/21 21:00 05/20/21 06:11 Insulin Glargine (*Bkc) 100 Units/Ml SUB-Q Not Given HS [facility] Labetalol HCl 10 mg 05/15/21 07:33 05/19/21 14:37 Labetalol Hcl Inj 100 Mg/20 Ml Vial IV PUSH 10 mg Q6HR PRN Administration for SBP >170 Magnesium Hydroxide 30 ml 05/15/21 17:22 Magnesium Hydroxide Susp 30 Ml Udc PO BID PRN Constipation Naloxone HCl 0.1 mg 05/15/21 17:22 Naloxone Hcl 0.4 Mg/Ml Vial IV PUSH Q2M PRN Opiate Reversal Ondansetron HCl 4 mg 05/16/21 00:22 05/19/21 17:02 Ondansetron Inj 4 Mg/2 Ml Vial IV PUSH 4 mg Q4H PRN Administration Nausea And Vomiting Radiology Results: ITS Impressions Chest X-Ray 05/15/21 08:08 IMPRESSION: 1. No acute cardiopulmonary disease. Hip/Pelvis X-Ray 05/15/21 08:28 IMPRESSION: 1. Mildly displaced and angulated comminuted intratrochanteric fracture of the pr
[2021-05-20 11:54] LABS: Glucose Point of Care 103 mg/dl (65-105)
[2021-05-20] MEDS: SODIUM CHLORIDE 0.9% IV 1,000 ML 100 ML IV CONT ×2 (11:59→22:50)
--- NOTE | 2021-05-20 14:42 | PCOTNOTE ---
Attempted to see patient this pm, however patient declined therapy due to increased pain. Pt reported 4/10 pain. RN notified.
[2021-05-20] MEDS: ACETAMINOPHEN 325 MG TABLET 650 MG PO ×2 (14:49→22:50)
[2021-05-20] MEDS: ONDANSETRON INJ 4 MG/2 ML VIAL IV PUSH (14:50)
--- NOTE | 2021-05-20 15:02 | PM.IMPN ---
Progress Note: A&P Assessment and Plan (1) Closed displaced fracture of right femoral neck: Code(s): S72.001A - Fracture of unspecified part of neck of right femur, initial encounter for closed fracture Assessment and Plan: Patient is postop day 5 fracture repair. Under management per Ortho. Patient doing well with PT. Recommend SNF upon discharge. Patient is a good candidate for acute rehab. (2) HTN (hypertension), benign: Code(s): I10 - Essential (primary) hypertension Status: Acute Assessment and Plan: consultation for pressure is well controlled without blood pressure medication. BP 154/78-170/100. (3) Long-term current use of insulin for diabetes mellitus: Code(s): Z79.4 - penitentiary (current) use of insulin; E11.9 - Type 2 diabetes mellitus without complications Status: Acute Assessment and Plan: Currently patient is on Lantus 50 units subQ q.h.s. and mealtime insulin aspart 15 units t.i.d. with meals. Accu-Check in the 97-110 range. (4) Vitamin D deficiency: Code(s): E55.9 - Vitamin D deficiency, unspecified Status: Acute Assessment and Plan: Supplemented. (5) ROSY (acute kidney injury): Code(s): N17.9 - Acute kidney failure, unspecified Status: Acute Assessment and Plan: Creatinine is improving from 1.2-1.1. Monitor kidney function in a.m. labs. (6) Abnormal urinalysis: Code(s): R82.90 - Unspecified abnormal findings in urine Status: Acute (7) Anemia: Code(s): D64.9 - Anemia, unspecified Status: Acute Assessment and Plan: Anemia : Hb stale after 1 unit PRBC. Likely postoperative anemia related to acute blood loss, in the setting of hip surgery. GI consulted. NO evidence of current GI bleeding. Patient to undergo age-appropriate colonoscopy screening 6-8 weeks post discharge. Additional Plan 4. DVT prophylax: -Lovenox 40 mg daily.. Subjective Date/time seen: 05/20/21 15:02 S: Patient examined at the bedside. She denies any sternal episode of nausea today. He she tolerated her breakfast well. She had no complaint at the time of my encounter. She has been tolerating physical therapy. She reports adequate pain control. Review of Systems Review of Systems: All systems reviewed & are unremarkable except as noted in HPI and below Constitutional: Constitutional: Reports as per HPI and Reports no additional constitutional complaints Eyes: Eyes: Reports as per HPI, Reports no additional eye complaints and Denies loss of vision ENT: Reports system reviewed and no additional complaints, except as documented, Reports as per HPI and Denies epistaxis Cardiovascular: Cardiovascular: Reports as per HPI, Reports no additional cardiovascular complaints, Denies leg edema, Denies dyspnea and Reports dyspnea on exertion Respiratory: Respiratory: Reports as per HPI, Reports no additional respiratory complaints, Denies cough, Denies dyspnea, Reports dyspnea on exertion and Denies wheezing Gastrointestinal: Gastrointestinal: Reports as per HPI, Reports no additional gastrointestinal complaints, Denies abdominal pain, Denies diarrhea, Reports nausea and Reports vomiting Genitourinary: Genitourinary: Reports no additional female genitourinary complaints Musculoskeletal: Musculoskeletal: Reports no additional musculoskeletal complaints Integumentary/Breasts: Skin/Breast: Reports system reviewed and no additional complaints, except as docu Neurologic: Reports system reviewed and no additional complaints, except as documented and Denies loss of vision Psychiatric: Psychiatric: Reports no additional psychiatric complaints Endocrine: Endocrine: Reports no additional endocrine complaints Hematologic/Lymphatic: Hematologic/Lymphatic: Reports no additional hematologic/lymphatic complaints Allergic/Immunologic: Allergic/Immunologic: Reports no additional allergic/immunologic complaints and Denies whee
[2021-05-20 15:12] VITALS: BP 163/84; PULSE 107; RESP 21; TEMP 36.4; O2SAT 99
[2021-05-20 16:26] LABS: Glucose Point of Care 106 mg/dl (65-105)
[2021-05-20] MEDS: INSULIN GLARGINE (*BKC) 100 UNITS/ML 50 UNITS SUB-Q (21:09)
[2021-05-20 22:45] LABS: Glucose Point of Care 187 mg/dl (65-105)
[2021-05-21 02:00] VITALS: BP 144/78; PULSE 74; RESP 18; TEMP 36.8; O2SAT 97
[2021-05-21 06:28] VITALS: BP 171/73; PULSE 88; RESP 18; TEMP 36.3; O2SAT 100
[2021-05-21 08:43] LABS: Glucose Point of Care 74 mg/dl (65-105)
[2021-05-21] MEDS: SODIUM CHLORIDE 0.9% IV 1,000 ML 100 ML IV CONT (08:56)
[2021-05-21] MEDS: ENOXAPARIN 40 MG/0.4 ML SYRINGE SUB-Q (08:57)
[2021-05-21] MEDS: DOCUSATE SODIUM 100 MG CAPSULE PO ×2 (08:57→17:04)
[2021-05-21] MEDS: fentaNYL CITRATE INJ (*CRX) 100 MCG/2 ML VIAL 25 MCG IV PUSH ×2 (10:46→15:18)
--- NOTE | 2021-05-21 11:17 | PM.DS ---
DS: Admitting Diagnosis Discharge Date 05/21/2021 Admitting Diagnosis Fracture of unspecified part of neck of right femur, initial encounter for closed fracture. DS: Discharge Diagnosis Discharge Diagnosis (1) Closed displaced fracture of right femoral neck: Code(s): S72.001A - Fracture of unspecified part of neck of right femur, initial encounter for closed fracture Assessment and Plan: Patient is postop day 6 fracture repair. Under management per Ortho. Patient doing well with PT. Recommend SNF upon discharge. Patient is a good candidate for acute rehab. (2) HTN (hypertension), benign: Code(s): I10 - Essential (primary) hypertension Status: Acute Assessment and Plan: Patient carries a diagnosis of hypertension, but has not been on blood pressure medication over the last years. Today her blood pressure has been in the 144/70 8-170 1/73 range. Patient will be started on lisinopril at 10 mg p.o. daily. 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 and mealtime insulin aspart 15 units t.i.d. with meals. Accu-Check in the 74-94 range. (4) Vitamin D deficiency: Code(s): E55.9 - Vitamin D deficiency, unspecified Status: Acute Assessment and Plan: Supplemented. (5) ROSY (acute kidney injury): Code(s): N17.9 - Acute kidney failure, unspecified Status: Acute Assessment and Plan: Creatinine is improving from 1.2-1.1 to 0.7. This likely represents her baseline. Monitor kidney function and follow up with Nephrology as an outpatient. (6) Abnormal urinalysis: Code(s): R82.90 - Unspecified abnormal findings in urine Status: Acute (7) Anemia: Code(s): D64.9 - Anemia, unspecified Status: Acute Assessment and Plan: Anemia : Hb stable after 1 unit PRBC. Likely postoperative anemia related to acute blood loss, in the setting of hip surgery. GI consulted. NO evidence of current GI bleeding. Patient to undergo age-appropriate colonoscopy screening 6-8 weeks post discharge. DS: Summary Hospital Course Reason for hospitalization: Fall Hospital Course: Please refer to admission H& P. Briefly,75-year-old female with past medical history significant hypertension, hyperlipidemia and type 2 diabetes mellitus presented status post mechanical fall. Patient reports that she woke up in the middle of the night to go to the bathroom and on her way back sustained a mechanical fall. She denies any lightheadedness, dizziness, chest pain, shortness of breath, fluttering of the heart, fever, chills, nausea or vomiting during this episode. An x-ray done in the ED with concerns for intertrochanteric fracture. Orthopedics has been brought on board the patient is planned for going to the OR does have a known. Patient reports that she is able to complete 4 Mets. She is able to climb a flight of stairs without any shortness of breath or chest pain however she is limited by her knee pain secondary to osteoarthritis and knee surgery on the left leg. An EKG was done preop which revealed normal sinus rhythm. And patient is cleared for surgery with an RCRI score of 1, putting her at 6% risk of cardiac complications postop op. The patient underwent a Right Hip Gamma Nail fixation ORIF on 05/15/2021. Procedure was uneventful. Patient started physical therapy on postop day 1. She after the surgery she developed anemia likely secondary to acute blood loss and had to receive 1 unit PRBC. After that her hemoglobin remained stable. GI was consulted. Patient has not had a colonoscopy in years and may follow-up as an outpatient in 2-3 months. Patient received pain management with IV fentanyl. Her chronic medical conditions were managed. Her blood pres
[2021-05-21 11:33] LABS: EDCOVIDSCREEN Negative (Negative)
--- NOTE | 2021-05-21 11:56 | PM.IMPN ---
Progress Note: A&P Assessment and Plan (1) Closed displaced fracture of right femoral neck: Code(s): S72.001A - Fracture of unspecified part of neck of right femur, initial encounter for closed fracture Assessment and Plan: Patient is postop day 6 fracture repair. Under management per Ortho. Patient doing well with PT. Recommend SNF upon discharge. Patient is a good candidate for acute rehab. (2) HTN (hypertension), benign: Code(s): I10 - Essential (primary) hypertension Status: Acute Assessment and Plan: Patient carries a diagnosis of hypertension, but has not been on blood pressure medication over the last years. Today her blood pressure has been in the 144/70 8-170 1/73 range. Patient will be started on lisinopril at 10 mg p.o. daily. (3) Long-term current use of insulin for diabetes mellitus: Code(s): Z79.4 - nursing home (current) use of insulin; E11.9 - Type 2 diabetes mellitus without complications Status: Acute Assessment and Plan: Currently patient is on Lantus 50 units subQ q.h.s. and mealtime insulin aspart 15 units t.i.d. with meals. Accu-Check in the 74-94 range. (4) Vitamin D deficiency: Code(s): E55.9 - Vitamin D deficiency, unspecified Status: Acute Assessment and Plan: Supplemented. (5) ROSY (acute kidney injury): Code(s): N17.9 - Acute kidney failure, unspecified Status: Acute Assessment and Plan: Creatinine is improving from 1.2-1.1 to 0.7. This likely represents her baseline. Monitor kidney function and follow up with Nephrology as an outpatient. (6) Abnormal urinalysis: Code(s): R82.90 - Unspecified abnormal findings in urine Status: Acute (7) Anemia: Code(s): D64.9 - Anemia, unspecified Status: Acute Assessment and Plan: Anemia : Hb stable after 1 unit PRBC. Likely postoperative anemia related to acute blood loss, in the setting of hip surgery. GI consulted. NO evidence of current GI bleeding. Patient to undergo age-appropriate colonoscopy screening 6-8 weeks post discharge. Additional Plan 4. DVT prophylax: -Lovenox 40 mg daily.. Subjective Date/time seen: 05/21/21 10:56 S: Patient was examined at the bedside. She just had physical therapy, trigger ring pain and was medicated. She denies any other complaints. She is in good spirit after being accepted to [facility] for rehabilitation. She recalls having been on blood pressure medications several years ago but has not required them in the recent past. Review of Systems Review of Systems: All systems reviewed & are unremarkable except as noted in HPI and below Constitutional: Constitutional: Reports as per HPI and Reports no additional constitutional complaints Eyes: Eyes: Reports as per HPI, Reports no additional eye complaints and Denies loss of vision ENT: Reports system reviewed and no additional complaints, except as documented, Reports as per HPI and Denies epistaxis Cardiovascular: Cardiovascular: Reports as per HPI, Reports no additional cardiovascular complaints, Denies leg edema, Denies dyspnea and Reports dyspnea on exertion Respiratory: Respiratory: Reports as per HPI, Reports no additional respiratory complaints, Denies cough, Denies dyspnea, Reports dyspnea on exertion and Denies wheezing Gastrointestinal: Gastrointestinal: Reports as per HPI, Reports no additional gastrointestinal complaints, Denies abdominal pain, Denies diarrhea, Reports nausea and Reports vomiting Genitourinary: Genitourinary: Reports no additional female genitourinary complaints Musculoskeletal: Musculoskeletal: Reports no additional musculoskeletal complaints Integumentary/Breasts: Skin/Breast: Reports system reviewed and no additional complaints, except as docu Neurologic: Reports system reviewed and no additional complaints, except as documented and Denies loss of vision Psychiatric: Psychiatric: Reports no additional psychiatric
[2021-05-21 12:01] LABS: Glucose Point of Care 94 mg/dl (65-105)
[2021-05-21] MEDS: lisinopriL 10 MG TABLET PO (12:08)
[2021-05-21 12:57] LABS: Basophils Absolute Auto 0.1 K/mm3 (0.0-0.1); Basophils Percent Auto 0.9 % (0.2-1.2); Eosinophils Absolute Auto 0.3 K/mm3 (0-0.3); Eosinophils Percent Auto 5.9 % (0-4.4); Hemoglobin 9.9 g/dL (12.0-15.0); Immature Granulocyte Absolute 0.05 K/mm3 (0.00-0.031); Immature Granulocyte Percent A 0.9 % (0-0.5); Lymphocytes Absolute Auto 0.76 K/mm3 (0.9-3.2); Lymphocytes Percent Auto 13.2 % (18.3-44.2); Mean Corpuscular HGB Conc 35.4 g/dl (32-36); Mean Corpuscular Hemoglobin 31.4 pg (26-34); Mean Corpuscular Volume 88.9 fl (80-100); Mean Platelet Volume 8.8 fl (7.4-10.4); Monocytes Absolute Auto 0.7 K/mm3 (0.1-0.6); Monocytes Percent Auto 12.9 % (2.6-8.5); Neutrophils Absolute Auto 3.8 K/mm3 (1.3-6.7); Neutrophils Percent Auto 66.2 % (45.5-73.1); Platelet Count Result 176 k/mm3 (150-375); Red Blood Count 3.15 M/mm3 (4.2-5.4); Red Cell Distribution Width 14.3 % (11.5-14.5); White Blood Count 5.7 K/mm3 (4.5-10.0)
[2021-05-21] MEDS: ACETAMINOPHEN 325 MG TABLET 650 MG PO ×2 (13:00→17:04)
[2021-05-21 13:11] LABS: Anion Gap 4 mmol/L (8-16); Blood Urea Nitrogen 14 mg/dL (7-17); Calcium 8.3 mg/dL (8.4-10.2); Carbon Dioxide 29 mmol/L (22-30); Chloride 105 mmol/L (98-107); Estimated CRCL calculation 37 ml/min; Estimated Glomerular Filt Rate > 60; Glucose 100 mg/dL (65-110); Potassium 3.4 mmol/L (3.4-5.0); Sodium 138 mmol/L (137-145)
[2021-05-21 14:00] VITALS: BP 162/73; PULSE 99; RESP 14; TEMP 36.2; O2SAT 97
[2021-05-21 17:49] LABS: Glucose Point of Care 99 mg/dl (65-105)
== END 2021-05-21 18:43 | DRG 481 ==
LOC: ANHED 05:54 → ANH3MEDSUR 09:21
PROVIDERS: Internal Medicine; Specialist; Admitting Provider Internal Medicine; Emergency Provider Emergency Medicine; PCP Family Medicine; Visit Provider Internal Medicine
PROC: 0QS634Z Reposition Right Upper Femur with Internal Fixation Device, Percutaneous Approach (ICD-10-PCS; CPT 27245; principal; 2021-05-15 15:30)
DX: S72.141A Displaced intertrochanteric fracture of right femur, initial encounter for closed fracture (principal); N17.9 Acute kidney failure, unspecified; D62 Acute posthemorrhagic anemia; Z20.822 Contact with and (suspected) exposure to COVID-19; I10 Essential (primary) hypertension; E11.65 Type 2 diabetes mellitus with hyperglycemia; E78.5 Hyperlipidemia, unspecified; E55.9 Vitamin D deficiency, unspecified; R82.90 Unspecified abnormal findings in urine; W19.XXXA Unspecified fall, initial encounter; Z79.4 Long term (current) use of insulin; Z90.49 Acquired absence of other specified parts of digestive tract; R11.2 Nausea with vomiting, unspecified; T41.45XA Adverse effect of unspecified anesthetic, initial encounter; T40.605A Adverse effect of unspecified narcotics, initial encounter
CPT/HCPCS: 36415; 36430; 51702; 71045; 73502; 80048; 80053; 81001; 82948; 83036; 84484; 85014; 85018; 85025; 85610; 85730; 86850; 86900; 86901; 86920; 87077; 87086; 87088; 87186; 87426; 93005; 96374; 97110; 97116; 97161; 97166; 97530; 97535; 99285; A9270; C1713; C1769; C9803; J0690; J0696; J1200; J1650; J1815; J2270; J2405; J2704; J3010; J3480; J7030; J7050; J7120; P9016

== ENCOUNTER 2021-05-28 16:37 | Observation (INO) | payer MEDICARE, SELFPAY ==
--- NOTE | ~2021-05-28 | XR_ITS ---
EXAMINATION: XR chest 1V portable DATE: 05/28/2021 17:07 INDICATION: COVID-19 pneumonia. TECHNIQUE: A single frontal view of the chest was obtained. COMPARISON: Chest single view 05/15/2021 FINDINGS: A calcified left lung nodule and calcified left hilar lymph nodes are consistent with old g ranulomatous disease. There are mild airspace opacities in the mid and lower lung zones. No pleural e ffusion or pneumothorax. The heart size is normal. IMPRESSION: 1. Mild airspace opacities in the mid and lower lung zones, consistent with atelectasis versus pneumo uma. Reviewed, dictated and finalized at location A. R ECONOMICS TEACHER IMPRESSION: 1. Mild airspace opacities in the mid and lower lung zones, consistent with ate lectasis versus pneumonia.
--- NOTE | ~2021-05-28 | MR_ITS ---
EXAMINATION: MR brain/brain stem wo con DATE: 05/30/2021 11:15 INDICATION: Confusion. TECHNIQUE: Magnetic resonance imaging (MRI) of the brain and brainstem was performed without intraven ous contrast. Sequences included sagittal and axial T1-weighted FSE, axial diffusion-weighted FS EPI, axial T2*-weighted GRE, axial T2-weighted FLAIR Propeller, and axial T2-weighted Propeller. Apparent diffusion coefficient (ADC) maps were created. COMPARISON: None. FINDINGS: There is no intracranial hemorrhage, acute infarction, or abnormal intracranial mass lesion . There are scattered areas of nonspecific increased T2-weighted signal intensity in the cerebral whi te matter, which is within normal limits for the patient's age. 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 The ventricles are normal in size. There is mucosal thickening in the paranasal sinuses a nd dependent fluid in the sphenoid sinus. There are likely changes of ocular lens replacement surgeri es. The mastoid air cells are normal. IMPRESSION: 1. Small old infarct in left cerebellum. Reviewed, dictated and finalized at location A. ARCH TECHNICIAN
--- NOTE | ~2021-05-28 | CT_ITS ---
EXAMINATION: CT chest abdomen pelvis w con EXAM DATE: 05/31/2021 14:11 INDICATION: Dyspnea, nausea, and vomiting . COVID positive. TECHNIQUE: Spiral CT of the chest, abdomen and pelvis was performed following intravenous injection o f 100 mL Omnipaque 350. Axial, coronal and sagittal images chest, abdomen and pelvis were reviewed. Coronal maximum intensity pixel images of chest reviewed. The dose-length product (DLP) for this ex amination was 431.49 mGy-cm. The exposure was tailored according to patient size (auto mA exposure c ontrol), and iterative reconstruction (ASIR) was used as additional dose reduction technique. Correla tion is made to chest x-ray 05/28/2021. FINDINGS: CHEST: There is moderate amount of left-sided, small to moderate amount of right-sided groundglass a irspace disease, appearance is consistent with acute COVID pneumonia. Less likely acute possibiliti es include influenza, pulmonary edema or hemorrhage. This is not a direct comparison to the prior [facility] x-ray, but there may be some progression. No suspicion of pulmonary embolism. There are no pleural or pericardial effusions. Tracheobronchial tree is patent. There is no mediastinal, hilar or axi llary lymphadenopathy. There is no pneumothorax. Heart normal in size. Esophageal edema, probably esophagitis. ABDOMEN PELVIS: The liver, spleen, adrenal glands and pancreas are unremarkable. There are cholecyst ectomy clips. Portal and splenic veins are patent. Kidneys enhance symmetrically. There is no hydr onephrosis. There is a fundal fibroid distorting the endometrium. Borderline endometrial thickness by CT, a follow-up pelvic sonogram should be considered for better evaluation. The bladder is distend ed but otherwise unremarkable. There is no retroperitoneal or pelvic lymphadenopathy. There is mil d scattered arteriosclerotic disease. The appendix is normal.. There is mild diffuse colonic wall thickening, possible mild colitis. The st omach and small bowel are unremarkable. No free intraperitoneal gas. There are no osteoblastic or osteolytic lesions identified. There is right hip gamma nail. IMPRESSION: 1. Bilateral airspace disease consistent with acute COVID pneumonia. 2. Findings suspicious for mild hardy colitis. 3. Esophagitis. 4. Submucosal fibroid. Follow-up nonemergent pelvic sonogram recommended to better delineate endomet rial thickness. Reviewed, dictated and finalized at location A. NOSE THROAT SURGEON IMPRESSION: 1. Bilateral airspace disease consistent with acute COVID pneumonia. 2. Findings suspicious for mild hardy colitis. 3. Esophagitis. 4. Submucosal fibroid. Follow-up nonemergent pelvic sonogram recommended to be tter delineate endometrial thickness.
[2021-05-28 16:38] VITALS: BP 162/74; PULSE 88; RESP 14; O2SAT 97
[2021-05-28 16:45] VITALS: TEMP 36.4
--- NOTE | 2021-05-28 16:45 | PCCCNOTE ---
Recieved call from [facility] concerning pt. Pt tested positive at their facility for COVID. Pt is unvaccinated. Bertha stated that they could not take pt back d/t staffing and bed arrangements for a COVID positive patient. Info relayed to ED charge nurse Gabriela. Pt just arriving and at present complete picture of symptoms not available.
--- NOTE | 2021-05-28 16:48 | ECG_ITS ---
Measurements Intervals [place] Rate: 85 P: 58 ND: 151 QRS: 23 QRSD: 68 T: 54 QT: 355 QTc: 423 Interpretive Statements SINUS RHYTHM POSSIBLE LEFT ATRIAL ENLARGEMENT CANNOT RULE OUT SEPTAL INFARCT, AGE INDETERMINATE BASELINE ARTIFACT- I, II, III, AVR, AVF, V1, V3-V6 ABNORMAL ECG Electronically Signed On 05-28-2021 19:52:55 ETHOLOGIST by Thong Giordano D.O.
[2021-05-28 17:25] LABS: Basophils Percent Auto 0.3 % (0.2-1.2); Eosinophils Percent Auto 0.9 % (0-4.4); Hemoglobin 10.4 g/dL (12.0-15.0); Immature Granulocyte Absolute 0.01 K/mm3 (0.00-0.031); Immature Granulocyte Percent A 0.3 % (0-0.5); Lymphocytes Absolute Auto 0.95 K/mm3 (0.9-3.2); Lymphocytes Percent Auto 27.9 % (18.3-44.2); Mean Corpuscular HGB Conc 35.9 g/dl (32-36); Mean Corpuscular Hemoglobin 31.3 pg (26-34); Mean Corpuscular Volume 87.3 fl (80-100); Mean Platelet Volume 9.2 fl (7.4-10.4); Monocytes Absolute Auto 0.2 K/mm3 (0.1-0.6); Monocytes Percent Auto 4.4 % (2.6-8.5); Neutrophils Absolute Auto 2.3 K/mm3 (1.3-6.7); Neutrophils Percent Auto 66.2 % (45.5-73.1); Platelet Count Result 165 k/mm3 (150-375); Red Blood Count 3.32 M/mm3 (4.2-5.4); Red Cell Distribution Width 14.1 % (11.5-14.5); White Blood Count 3.4 K/mm3 (4.5-10.0)
[2021-05-28 17:37] LABS: Alanine Aminotransferase 14 U/L (4-35); Alkaline Phosphatase 65 U/L (38-126); Anion Gap 4 mmol/L (8-16); Aspartate Amino Transferase 44 U/L (14-36); Bilirubin,Total 1.1 mg/dL (0.2-1.3); Blood Urea Nitrogen 36 mg/dL (7-17); Calcium 8.4 mg/dL (8.4-10.2); Carbon Dioxide 32 mmol/L (22-30); Chloride 95 mmol/L (98-107); Estimated CRCL calculation 37 ml/min; Estimated Glomerular Filt Rate > 60; Glucose 115 mg/dL (65-110); Potassium 3.4 mmol/L (3.4-5.0); Sodium 131 mmol/L (137-145)
[2021-05-28 17:42] VITALS: BP 139/64; PULSE 88; RESP 16; O2SAT 100
[2021-05-28 18:11] LABS: Add Urine Microscopic? YES; Appearance Urine Cloudy (Clear); Bilirubin Urine Negative (Negative); Blood Urine Negative (Negative); Color Urine Yellow (Yellow); Glucose Urine UA Negative (Negative); Ketones Urine Negative (Negative); Leukocyte Esterase Ur Negative LEU/UL (Negative); Mucus Urine Rare /lpf; Nitrate Urine Negative (Negative); Protein Urine 1+ mg/dL (Negative); RBC Urine 0-2 /hpf (0-2); Specific Grav Ur 1.017 (1.001-1.035); Squamous Epithelial Cell Urine Few /hpf (Few); Urobilinogen Urine Negative mg/dL (<2.0); WBC Urine 0-3 /hpf
--- NOTE | 2021-05-28 18:45 | PM.IMHP ---
H&P: HPI History of Present Illness Date/Time: 05/28/21 18:45 Chief Complaint: Tested positive for COVID. Narrative: This is a 75-year-old female who was brought to the emergency department via EMS from [facility] because she reportedly had a positive rapid COVID-19 test today. Her medical history is significant for insulin-dependent diabetes, hypertension, dyslipidemia, and chronic kidney disease. The patient is known to the hospitalist service with a recent admission on 05/15/2021 after presenting with a fall in which she sustained a right hip fracture. She underwent gamma nail fixation the following day and was discharged to [facility] for rehab on 05/21/2021. It is noted that she had a negative COVID screening test on date of discharge. Since that time she reports that she has been fully participating in therapy each and every day and she feels that she is doing quite well in that regard and she is looking for to going home in the next 6 days or so. She tells me that she is eating and drinking without issue however she looks dehydrated on exam. Aside from brief nausea with 1 episode of emesis several days ago, she has not felt unwell and she specifically denies fever, chills, sweats, headache, sinus congestion, rhinorrhea, otalgia, odynophagia, cough, shortness of breath, nausea, vomiting, diarrhea, and dysuria. She denies sick contacts and known exposure to those positive for COVID 19. She did complete the COVID vaccination series months ago. Review of Systems Review of Systems: Twelve systems were reviewed. No syncope or near syncope. She denies weakness. No fatigue. She believes her glucose has been well controlled. No blurry vision, polydipsia, or polyuria. Except as documented, all other systems were reviewed and are negative. [facility] Past Medical History Medical History (Updated 05/28/21 @ 22:37 by Evelyn Riley PA-C) Basal cell carcinoma Closed intertrochanteric fracture of right hip (05/15/21) History of blood transfusion (05/2021) Acute blood loss anemia postoperatively. Hypertension Insulin dependent diabetes mellitus Complicated by diabetic retinopathy and neuropathy. Hemoglobin A1c was 7.5% on 05/15/2021. Primary osteoarthritis involving multiple joints Pure hypercholesterolemia Vitamin D deficiency Surgical History Surgical History (Updated 05/28/21 @ 22:33 by Evelyn Riley PA-C) History of basal cell carcinoma excision History of section, low transverse History of laparoscopic cholecystectomy History of open reduction and internal fixation (ORIF) procedure (05/16/21) Gamma nail fixation of right hip fracture. History of surgical procedure on eye proper using laser Laser eye surgery for diabetic retinopathy. Family History Family History Father Family history of diabetes mellitus in first degree relative Family history of heart disease in male family member before age 55 Family history of congestive heart failure Mother Family history of malignant neoplasm of uterus Family history of malignant neoplasm of ovary Family history of malignant neoplasm Sibling Family history of malignant neoplasm Father Family history of type 2 diabetes mellitus Father Family history of type 2 diabetes mellitus Other Diabetes mellitus Hypertension Social History Social History (Updated 05/28/21 @ 22:34 by Evelyn Riley PA-C) Social History: Surrogate decision maker: Cuco Prajapatiespie, . Code status: Full code. Smoking status: Never smoker Second hand tobacco smoke exposure: No Alcohol intake: never Substance use: never Substance use type: does not use Additional living arrangements comments: The patient lives in [place] with her . 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 They have a son and a daughter. Additional occupation/education comments: Retired. Meds Home Medications and Allergies Home Medicatio
--- NOTE | 2021-05-28 18:51 | ED.GENADULT ---
HPI - General Adult General Chief complaint: Shortness of Breath/Dyspnea Stated complaint: COVID +, Weakness Source: patient Mode of arrival: EMS Limitations: no limitations History of Present Illness HPI narrative: 75-year-old with a history of attention, diabetes, GERD, s/p right hip fracture was sent from the longterm with complaints of weakness and Covid positive. Patient presently denies any shortness of breath or cough, nausea or vomiting. She states that she threw up approximately week ago. Onset (ago): day(s) (1) Severity: mild Exacerbating factors: none Associated symptoms: denies other symptoms Related Data Home Medications Medication Instructions Recorded Confirmed insulin glargine U-300 conc 300 35 unit SUB-Q QAM ml 07/19/19 05/15/21 unit/mL (3 mL) subcutaneous pen insulin lispro 200 unit/mL (3 mL) 45 unit SUB-Q .sliding scale ml 07/19/19 05/15/21 subcutaneous pen cholecalciferol (vitamin D3) 50 mcg PO DAILY 05/15/21 05/15/21 [Vitamin D3] Allergies Allergy/AdvReac Type Severity Reaction Status Date / Time No Known Allergies Allergy Verified 05/15/21 09:01 Review of Systems Review of Systems: All systems reviewed & are unremarkable except as noted in HPI and below Constitutional: Constitutional: Reports no additional constitutional complaints Eyes: Eyes: Reports no additional eye complaints ENT: Reports system reviewed and no additional complaints, except as documented Cardiovascular: Cardiovascular: Reports no additional cardiovascular complaints Respiratory: Respiratory: Reports no additional respiratory complaints Gastrointestinal: Gastrointestinal: Reports no additional gastrointestinal complaints Musculoskeletal: Musculoskeletal: Reports no additional musculoskeletal complaints Neurologic: Reports system reviewed and no additional complaints, except as documented [facility] Past Medical History Medical History HTN (hypertension), benign Type 2 diabetes mellitus with hyperglycemia Surgical History Surgical History History of section, low transverse Status post laparoscopic cholecystectomy Family History Family History Father Family history of diabetes mellitus in first degree relative Family history of heart disease in male family member before age 55 Family history of congestive heart failure Mother Family history of malignant neoplasm of uterus Family history of malignant neoplasm of ovary Family history of malignant neoplasm Sibling Family history of malignant neoplasm Father Family history of type 2 diabetes mellitus Father Family history of type 2 diabetes mellitus Other Diabetes mellitus Hypertension Social History Social History Smoking status: Never smoker Second hand tobacco smoke exposure: No Alcohol intake: never Substance use: never Substance use type: does not use Gender identity (if verbalized by the patient): Female Spiritual care concerns: No Exam Narrative: GENERAL: Well-appearing, well-nourished, and in no acute distress. HEAD: Normocephalic, atraumatic. EYES: PERRLA and EOMI. NECK: Supple. CHEST: Clear to auscultation. No respiratory distress. HEART: Regular rate and rhythm. No murmur heard. Normal peripheral pulses. ABDOMEN: Soft, nontender, nondistended, normal active bowel sounds. EXTREMITIES: Normal range of motion. No edema. SKIN: Warm, dry, no rash. NEURO: No focal deficits. Alert and oriented x3. PSYCH: Normal mood and affect. Course Course Emergency Course: Patient has no complaints at this time informed her about her lab work. Will admit to the hospital discussed with the hospitalist. Vital Signs Vital signs: Vital Signs Pulse Rate 88 05/28/21 16:38 Respiratory Rate 14 1
[2021-05-28 19:35] VITALS: BP 149/77; PULSE 88; RESP 16; O2SAT 100
[2021-05-28 20:00] VITALS: BP 157/64; PULSE 90; RESP 18; TEMP 36.1; O2SAT 90
[2021-05-28] MEDS: SODIUM CHLORIDE 0.9% IV 1,000 ML 75 ML IV CONT (22:48)
[2021-05-29] VITALS (11 sets, daily range): BP systolic 103–179; BP diastolic 58–73; PULSE 84–99; RESP 16–18; TEMP 36.2–36.6; O2SAT 86–100; BMI 24.3
--- NOTE | 2021-05-29 00:11 | PC.NURSE ---
This patient, Amy Dhaliwal, was admitted to [facility] Surg Room 303-01. Patient/family oriented to hospital policies and general routines including ID bracelet, bed and alarms, visiting hours, pain management, procedures, bathroom and other care routines, personal items, smoking policy, room service/diet, and visiting hours. Information on how to activate the Rapid Response Team has been discussed. Patient/Family are encouraged to report perceived risks to care and to ask questions if they do not understand what they are told or what they should do.
[2021-05-29 06:54] LABS: Hematocrit 28.1 % (37.0-47.0); Mean Corpuscular HGB Conc 35.6 g/dl (32-36); Mean Corpuscular Hemoglobin 30.8 pg (26-34); Mean Corpuscular Volume 86.5 fl (80-100); Mean Platelet Volume 9.3 fl (7.4-10.4); Platelet Count Result 178 k/mm3 (150-375); Red Blood Count 3.25 M/mm3 (4.2-5.4); Red Cell Distribution Width 14.1 % (11.5-14.5); White Blood Count 3.1 K/mm3 (4.5-10.0)
[2021-05-29 07:16] LABS: Alanine Aminotransferase 13 U/L (4-35); Albumin Level 3.1 g/dL (3.5-5.1); Alkaline Phosphatase 68 U/L (38-126); Anion Gap 5 mmol/L (8-16); Aspartate Amino Transferase 42 U/L (14-36); Blood Urea Nitrogen 27 mg/dL (7-17); CRP 1.7 mg/dL (<1.0); Calcium 8.2 mg/dL (8.4-10.2); Carbon Dioxide 30 mmol/L (22-30); Chloride 95 mmol/L (98-107); Estimated CRCL calculation 41 ml/min; Estimated Glomerular Filt Rate > 60; Glucose 52 mg/dL (65-110); Lactate Dehydrogenase 764 U/L (313-618); Magnesium 1.3 mg/dL (1.6-2.3); Potassium 3.1 mmol/L (3.4-5.0); Sodium 130 mmol/L (137-145)
[2021-05-29 09:22] LABS: Glucose Point of Care 92 mg/dl (65-105)
--- NOTE | 2021-05-29 10:00 | PM.IMPN ---
Progress Note: A&P Assessment and Plan (1) Hypoglycemia: Code(s): E16.2 - Hypoglycemia, unspecified Status: Acute Assessment and Plan: Glucose 52 on labs Hypoglycemia protocol Trend labs Encourage PO intake Hold all antidiabetic medications (2) Lab test positive for detection of COVID-19 virus: Code(s): U07.1 - COVID-19 Status: Acute Assessment and Plan: Rapid at [place] found to be covid positive COVID negative on date of DC 05/21/21 Chest x-ray read mild opacities at the lung bases No oxygen requirements and saturation 99% on RA Reswab pending (3) Abnormal chest x-ray: Code(s): R93.89 - Abnormal findings on diagnostic imaging of other specified body structures Status: Acute Assessment and Plan: See above (4) Insulin dependent diabetes mellitus: Status: Acute Assessment and Plan: Hold all insulins at this time Glucose on labs 52 Trend labs Adjust medications as needed (5) Hypertension: Code(s): I10 - Essential (primary) hypertension Status: Acute Assessment and Plan: BP is 179/73 this am Continue lisinopril 10mg PO daily Trend BP Adjust medications as needed. (6) Hypomagnesemia: Code(s): E83.42 - Hypomagnesemia Status: Acute Assessment and Plan: Mg 1.3 4gm replacement Trend labs replace as needed (7) Hypokalemia: Code(s): E87.6 - Hypokalemia Status: Acute Assessment and Plan: K is 3.1 replace with 40mcg PO Trend labs Replace as needed Time Spent With Patient Time with patient: Greater than 35 minutes Subjective Date/time seen: 05/29/21 1000 Interval history: Date/Time: 05/28/21 18:45 Narrative: This is a 75-year-old female who was brought to the emergency department via EMS from [facility] because she reportedly had a positive rapid COVID-19 test today. Her medical history is significant for insulin-dependent diabetes, hypertension, dyslipidemia, and chronic kidney disease. The patient is known to the hospitalist service with a recent admission on 05/15/2021 after presenting with a fall in which she sustained a right hip fracture. She underwent gamma nail fixation the following day and was discharged to [facility] for rehab on 05/21/2021. It is noted that she had a negative COVID screening test on date of discharge. Since that time she reports that she has been fully participating in therapy each and every day and she feels that she is doing quite well in that regard and she is looking for to going home in the next 6 days or so. She tells me that she is eating and drinking without issue however she looks dehydrated on exam. Aside from brief nausea with 1 episode of emesis several days ago, she has not felt unwell and she specifically denies fever, chills, sweats, headache, sinus congestion, rhinorrhea, otalgia, odynophagia, cough, shortness of breath, nausea, vomiting, diarrhea, and dysuria. She denies sick contacts and known exposure to those positive for COVID 19. She did complete the COVID vaccination series months ago. Date/Time 05/29/21 1000 Patient has no complaints today. She stated that she is feeling well. She does not know why she is here. She stated that when she was being brought here that they told her because she had covid. Nursing updated after talking with the daughter who stated that the patient was not eating or drinking as much at the custodial and started to become more confused. He glucose on labs was only 52 and some of her electrolytes were also off. Replacement ordered and antidiabetics have been discontinued. Patient denied chest pain, shortness of breath, nausea, vomiting, abdominal pain, sweats, fevers, and chills. Review of Systems Review of Systems: All systems reviewed & are unremarkable except as noted in HPI and below Exam Const: General: cooperative, health
[2021-05-29] MEDS: ENOXAPARIN 40 MG/0.4 ML SYRINGE SUB-Q (10:20)
[2021-05-29] MEDS: MAGNESIUM SULF 4 GM/WATER100ML 4 GM/100 ML BAG IVPB (12:10)
[2021-05-29] MEDS: POTASSIUM CHLORIDE 20 MEQ TABLET 60 MEQ PO (12:11)
[2021-05-29 12:43] LABS: Glucose Point of Care 80 mg/dl (65-105)
[2021-05-29 16:36] LABS: Glucose Point of Care 89 mg/dl (65-105)
[2021-05-29 22:00] LABS: Glucose Point of Care 95 mg/dl (65-105)
[2021-05-30] VITALS (9 sets, daily range): BP systolic 111–166; BP diastolic 64–98; PULSE 96–104; RESP 16–22; TEMP 36–36.7; O2SAT 94–100
[2021-05-30 06:16] LABS: Basophils Percent Auto 0.3 % (0.2-1.2); Eosinophils Percent Auto 0.6 % (0-4.4); Hematocrit 30.7 % (37.0-47.0); Hemoglobin 10.9 g/dL (12.0-15.0); Immature Granulocyte Absolute 0.01 K/mm3 (0.00-0.031); Immature Granulocyte Percent A 0.3 % (0-0.5); Lymphocytes Percent Auto 19.6 % (18.3-44.2); Mean Corpuscular HGB Conc 35.5 g/dl (32-36); Mean Corpuscular Hemoglobin 31.1 pg (26-34); Mean Corpuscular Volume 87.7 fl (80-100); Mean Platelet Volume 9.3 fl (7.4-10.4); Monocytes Absolute Auto 0.2 K/mm3 (0.1-0.6); Monocytes Percent Auto 5.9 % (2.6-8.5); Neutrophils Absolute Auto 2.6 K/mm3 (1.3-6.7); Neutrophils Percent Auto 73.3 % (45.5-73.1); Platelet Count Result 199 k/mm3 (150-375); Red Cell Distribution Width 14.2 % (11.5-14.5); White Blood Count 3.6 K/mm3 (4.5-10.0)
[2021-05-30 06:32] LABS: Alanine Aminotransferase 15 U/L (4-35); Albumin Level 3.1 g/dL (3.5-5.1); Alkaline Phosphatase 82 U/L (38-126); Anion Gap 3 mmol/L (8-16); Aspartate Amino Transferase 51 U/L (14-36); Bilirubin,Total 1.3 mg/dL (0.2-1.3); Blood Urea Nitrogen 25 mg/dL (7-17); Calcium 8.2 mg/dL (8.4-10.2); Carbon Dioxide 30 mmol/L (22-30); Chloride 98 mmol/L (98-107); Estimated CRCL calculation 41 ml/min; Estimated Glomerular Filt Rate > 60; Glucose 95 mg/dL (65-110); Magnesium 2.2 mg/dL (1.6-2.3); Potassium 4.6 mmol/L (3.4-5.0); Sodium 131 mmol/L (137-145)
[2021-05-30 08:52] LABS: Glucose Point of Care 99 mg/dl (65-105)
--- NOTE | 2021-05-30 09:40 | PM.IMPN ---
Progress Note: A&P Assessment and Plan (1) Hypoglycemia: Code(s): E16.2 - Hypoglycemia, unspecified Status: Acute Assessment and Plan: Glucose 52 on labs on 05/29/21, currently 95 seems to be resolved at this time Hypoglycemia protocol Trend labs Encourage PO intake Hold all antidiabetic medications (2) Lab test positive for detection of COVID-19 virus: Code(s): U07.1 - COVID-19 Status: Acute Assessment and Plan: Rapid at [place] found to be covid positive COVID negative on date of DC 05/21/21 Chest x-ray read mild opacities at the lung bases No oxygen requirements and saturation 99% on RA Reswab pending (3) Abnormal chest x-ray: Code(s): R93.89 - Abnormal findings on diagnostic imaging of other specified body structures Status: Acute Assessment and Plan: See above (4) Insulin dependent diabetes mellitus: Status: Acute Assessment and Plan: Continue to hold all insulins at this time Glucose on labs 52 05/28/21, 95 today Trend labs Adjust medications as needed (5) Hypertension: Code(s): I10 - Essential (primary) hypertension Status: Acute Assessment and Plan: BP is 111/86 today Continue lisinopril 10mg PO daily Trend BP Adjust medications as needed. 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 Her medical history is significant for insulin-dependent diabetes, hypertension, dyslipidemia, and chronic kidney disease. The patient is known to the hospitalist service with a recent admission on 05/15/2021 after presenting with a fall in which she sustained a right hip fracture. She underwent gamma nail fixation the following day and was discharged to [facility] for rehab on 05/21/2021. It is noted that she had a negative COVID screening test on date of discharge. Since that time she reports that she has been fully participating in therapy each and every day and she feels that she is doing quite well in that regard and she is looking for to going home in the next 6 days or so. She tells me that she is eating and drinking without issue however she looks dehydrated on exam. Aside from brief nausea with 1 episode of emesis several days ago, she has not felt unwell and she specifically denies fever, chills, sweats, headache, sinus congestion, rhinorrhea, otalgia, odynophagia, cough, shortness of breath, nausea, vomiting, diarrhea, and dysuria. She denies sick contacts and known exposure to those positive for COVID 19. She did complete the COVID vaccination series months ago. Date/Time 05/29/21 1000 Patient has no complaints today. She stated that she is feeling well. She does not know why she is here. She stated that when she was being brought here that they told her because she had covid. Nursing updated after talking with the daughter who stated that the patient was not eating or drinking as much at the [facility] and started to become more confused. He glucose on labs was only 52 and some of her electrolytes were also off. Replacement ordered and antidiabetics have been
--- NOTE | 2021-05-30 09:40 | P.PNIM_ITS ---
Progress Note: A&P Assessment and Plan (1) Hypoglycemia: Code(s): E16.2 - Hypoglycemia, unspecified Status: Acute Assessment and Plan: * Glucose 52 on labs on 05/29/21, currently 95 * seems to be resolved at this time * Hypoglycemia protocol * Trend labs * Encourage PO intake * Hold all antidiabetic medications (2) Lab test positive for detection of COVID-19 virus: Code(s): U07.1 - COVID-19 Status: Acute Assessment and Plan: * Rapid at [place] found to be covid positive * COVID negative on date of DC 05/21/21 * Chest x-ray read mild opacities at the lung bases * No oxygen requirements and saturation 99% on RA * Reswab pending (3) Abnormal chest x-ray: Code(s): R93.89 - Abnormal findings on diagnostic imaging of other specified body structures Status: Acute Assessment and Plan: * See above (4) Insulin dependent diabetes mellitus: Status: Acute Assessment and Plan: * Continue to hold all insulins at this time * Glucose on labs 52 05/28/21, 95 today * Trend labs * Adjust medications as needed (5) Hypertension: Code(s): I10 - Essential (primary) hypertension Status: Acute Assessment and Plan: * BP is 111/86 today * Continue lisinopril 10mg PO daily * Trend BP * Adjust medications as needed. 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 Her medical history is significant for insulin-dependent diabetes, hypertension, dyslipidemia, and chronic kidney disease. The patient is known to the hospitalist service with a recent admission on 05/15/2021 after presenting with a fall in which she sustained a right hip fracture. She underwent gamma nail fixation the following day and was discharged to [facility] for rehab on 05/21/2021. It is noted that she had a negative COVID screening test on date of discharge. Since that time she reports that she has been fully participating in therapy each and every day and she feels that she is doing quite well in that regard and she is looking for to going home in the next 6 days or so. She tells me that she is eating and drinking without issue however she looks dehydrated on exam. Aside from brief nausea with 1 episode of emesis several days ago, she has not felt unwell and she specifically denies fever, chills, sweats, headache, sinus congestion, rhinorrhea, otalgia, odynophagia, cough, shortness of breath, nausea, vomiting, diarrhea, and dysuria. She denies sick contacts and known exposure to those positive for COVID 19. She did complete the COVID vaccination series months ago. Michaela
[2021-05-30] MEDS: ENOXAPARIN 40 MG/0.4 ML SYRINGE SUB-Q (10:15)
[2021-05-30 12:31] LABS: Glucose Point of Care 93 mg/dl (65-105)
[2021-05-30 16:37] LABS: SARS-CoV-2 RNA PCR Positive
[2021-05-30 17:07] LABS: Glucose Point of Care 96 mg/dl (65-105)
[2021-05-31] VITALS (7 sets, daily range): BP systolic 124–155; BP diastolic 65–91; PULSE 96–109; RESP 14–20; TEMP 36.5–37.1; O2SAT 93–98
[2021-05-31 00:50] LABS: Glucose Point of Care 109 mg/dl (65-105)
--- NOTE | 2021-05-31 07:40 | PM.IMPN ---
Progress Note: A&P Assessment and Plan (1) Lab test positive for detection of COVID-19 virus: Code(s): U07.1 - COVID-19 Status: Acute Assessment and Plan: Rapid at [place] found to be covid positive COVID negative on date of DC 05/21/21 Chest x-ray read mild opacities at the lung bases, Repeat in the am No oxygen requirements and saturation 93-95% on room air COVID PCR is positive Labs are ok No indication for remdesivir or steroids at this time (2) Abnormal chest x-ray: Code(s): R93.89 - Abnormal findings on diagnostic imaging of other specified body structures Status: Acute Assessment and Plan: See above (3) Insulin dependent diabetes mellitus: Status: Acute Assessment and Plan: Continue to hold all insulins at this time Glucose on labs 52 05/28/21, 110 today Trend labs Adjust medications as needed (4) Hypertension: Code(s): I10 - Essential (primary) hypertension Status: Acute Assessment and Plan: BP is 149/66 today Continue lisinopril 10mg PO daily Trend BP Adjust medications as needed. 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 Her medical history is significant for insulin-dependent diabetes, hypertension, dyslipidemia, and chronic kidney disease. The patient is known to the hospitalist service with a recent admission on 05/15/2021 after presenting with a fall in which she sustained a right hip fracture. She underwent gamma nail fixation the following day and was discharged to [facility] for rehab on 05/21/2021. It is noted that she had a negative COVID screening test on date of discharge. Since that time she reports that she has been fully participating in therapy each and every day and she feels that she is doing quite well in that regard and she is looking for to going home in the next 6 days or so. She tells me that she is eating and drinking without issue however she looks dehydrated on exam. Aside from brief nausea with 1 episode of emesis several days ago, she has not felt unwell and she specifically denies fever, chills, sweats, headache, sinus congestion, rhinorrhea, otalgia, odynophagia, cough, shortness of breath, nausea, vomiting, diarrhea, and dysuria. She denies sick contacts and known exposure to those positive for COVID 19. She did complete the COVID vaccination series months ago. Date/Time 05/29/21 1000 Patient has no complaints today. She stated that she is feeling well. She does not know why she is here. She stated that when she was being brought here that they told her because she had covid. Nursing updated after talking with the daughter who stated that the patient was not eating or drinking as much at the skilled nursing and started to become more confused. He glucose on labs was only 52 and some of her electrolytes were
--- NOTE | 2021-05-31 07:40 | P.PNIM_ITS ---
Progress Note: A&P Assessment and Plan (1) Lab test positive for detection of COVID-19 virus: Code(s): U07.1 - COVID-19 Status: Acute Assessment and Plan: * Rapid at [place] found to be covid positive * COVID negative on date of DC 05/21/21 * Chest x-ray read mild opacities at the lung bases, Repeat in the am * No oxygen requirements and saturation 93-95% on room air * COVID PCR is positive * Labs are ok * No indication for remdesivir or steroids at this time (2) Abnormal chest x-ray: Code(s): R93.89 - Abnormal findings on diagnostic imaging of other specified body structures Status: Acute Assessment and Plan: * See above (3) Insulin dependent diabetes mellitus: Status: Acute Assessment and Plan: * Continue to hold all insulins at this time * Glucose on labs 52 05/28/21, 110 today * Trend labs * Adjust medications as needed (4) Hypertension: Code(s): I10 - Essential (primary) hypertension Status: Acute Assessment and Plan: * BP is 149/66 today * Continue lisinopril 10mg PO daily * Trend BP * Adjust medications as needed. 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 Her medical history is significant for insulin-dependent diabetes, hypertension, dyslipidemia, and chronic kidney disease. The patient is known to the hospitalist service with a recent admission on 05/15/2021 after presenting with a fall in which she sustained a right hip fracture. She underwent gamma nail fixation the following day and was discharged to [facility] for rehab on 05/21/2021. It is noted that she had a negative COVID screening test on date of discharge. Since that time she reports that she has been fully participating in therapy each and every day and she feels that she is doing quite well in that regard and she is looking for to going home in the next 6 days or so. She tells me that she is eating and drinking without issue however she looks dehydrated on exam. Aside from brief nausea with 1 episode of emesis several days ago, she has not felt unwell and she specifically denies fever, chills, sweats, headache, sinus congestion, rhinorrhea, otalgia, odynophagia, cough, shortness of breath, nausea, vomiting, diarrhea, and dysuria. She denies sick contacts and known exposure to those positive for COVID 19. She did comple
[2021-05-31 08:02] LABS: Glucose Point of Care 99 mg/dl (65-105)
[2021-05-31 08:54] LABS: Basophils Percent Auto 0.1 % (0.2-1.2); Hematocrit 29.6 % (37.0-47.0); Hemoglobin 10.5 g/dL (12.0-15.0); Immature Granulocyte Absolute 0.03 K/mm3 (0.00-0.031); Immature Granulocyte Percent A 0.4 % (0-0.5); Lymphocytes Absolute Auto 0.73 K/mm3 (0.9-3.2); Lymphocytes Percent Auto 10.3 % (18.3-44.2); Mean Corpuscular HGB Conc 35.5 g/dl (32-36); Mean Corpuscular Hemoglobin 30.9 pg (26-34); Mean Corpuscular Volume 87.1 fl (80-100); Mean Platelet Volume 9.2 fl (7.4-10.4); Monocytes Absolute Auto 0.3 K/mm3 (0.1-0.6); Monocytes Percent Auto 4.1 % (2.6-8.5); Neutrophils Absolute Auto 6.1 K/mm3 (1.3-6.7); Neutrophils Percent Auto 85.1 % (45.5-73.1); Platelet Count Result 213 k/mm3 (150-375); Red Cell Distribution Width 14.1 % (11.5-14.5); White Blood Count 7.1 K/mm3 (4.5-10.0)
[2021-05-31 09:11] LABS: Alanine Aminotransferase 17 U/L (4-35); Albumin Level 3.2 g/dL (3.5-5.1); Alkaline Phosphatase 79 U/L (38-126); Anion Gap 7 mmol/L (8-16); Aspartate Amino Transferase 52 U/L (14-36); Bilirubin,Total 1.4 mg/dL (0.2-1.3); Blood Urea Nitrogen 27 mg/dL (7-17); Calcium 8.2 mg/dL (8.4-10.2); Carbon Dioxide 28 mmol/L (22-30); Chloride 96 mmol/L (98-107); Estimated CRCL calculation 37 ml/min; Estimated Glomerular Filt Rate > 60; Glucose 110 mg/dL (65-110); Magnesium 1.7 mg/dL (1.6-2.3); Sodium 131 mmol/L (137-145)
[2021-05-31] MEDS: ENOXAPARIN 40 MG/0.4 ML SYRINGE SUB-Q (09:56)
--- NOTE | 2021-05-31 10:38 | PM.DS ---
DS: Admitting Diagnosis Discharge Date Date DS: Summary Time Spent with Patient Time attestation: Total time spent providing and/or coordinating discharge services: DS: Data Data Completed and Pending Labs on day of discharge: Labs from last 24 hours 05/31/21 05/31/21 05/31/21 08:25 08:25 07:47 WBC 7.1 RBC 3.40 L Hgb 10.5 L Hct 29.6 L MCV 87.1 MCH 30.9 MCHC 35.5 RDW 14.1 Plt Count 213 MPV 9.2 Immature Gran % (Auto) 0.4 Neut % (Auto) 85.1 H Lymph % (Auto) 10.3 L [place] % (Auto) 4.1 Eos % (Auto) 0.0 Baso % (Auto) 0.1 L Lymph # (Auto) 0.73 L [place] # (Auto) 0.3 Eos # (Auto) 0.0 Baso # (Auto) 0.0 Abs Immat Gran (auto) 0.03 Absolute Neuts (auto) 6.1 Absolute Nucleated RBC 0.0 Nucleated RBC % 0.0 Sodium 131 L Potassium 4.0 Chloride 96 L Carbon Dioxide 28 Anion Gap 7 L BUN 27 H Creatinine 0.90 Estim Creat Clear Calc 37 Estimated GFR > 60 Glucose 110 POC Capillary Glucose 99 Calcium 8.2 L Magnesium 1.7 Total Bilirubin 1.4 H AST 52 H ALT 17 Alkaline Phosphatase 79 Total Protein 6.0 L Albumin 3.2 L SARS-CoV-2 RNA (RT-PCR) 05/30/21 05/30/21 05/30/21 22:26 16:14 12:13 WBC RBC Hgb Hct MCV MCH MCHC RDW Plt Count MPV Immature Gran % (Auto) Neut % (Auto) Lymph % (Auto) [place] % (Auto) Eos % (Auto) Baso % (Auto) Lymph # (Auto) [place] # (Auto) Eos # (Auto) Baso # (Auto) Abs Immat Gran (auto) Absolute Neuts (auto) Absolute Nucleated RBC Nucleated RBC % Sodium Potassium Chloride Carbon Dioxide Anion Gap BUN Creatinine Estim Creat Clear Calc Estimated GFR Glucose POC Capillary Glucose 109 H 96 93 Calcium Magnesium Total Bilirubin AST ALT Alkaline Phosphatase Total Protein Albumin SARS-CoV-2 RNA (RT-PCR) 05/29/21 12:39 WBC RBC Hgb Hct MCV MCH MCHC RDW Plt Count MPV Immature Gran % (Auto) Neut % (Auto) Lymph % (Auto) [place] % (Auto) Eos % (Auto) Baso % (Auto) Lymph # (Auto) [place] # (Auto) Eos # (Auto) Baso # (Auto) Abs Immat Gran (auto) Absolute Neuts (auto) Absolute Nucleated RBC Nucleated RBC % Sodium Potassium Chloride Carbon Dioxide Anion Gap BUN Creatinine Estim Creat Clear Calc Estimated GFR Glucose POC Capillary Glucose Calcium Magnesium Total Bilirubin AST ALT Alkaline Phosphatase Total Protein Albumin SARS-CoV-2 RNA (RT-PCR) Positive A Discharge Plan Discharge Discharge Medications: No Action Toujeo Max U-300 SoloStar 300 unit/mL (3 mL) insulin pen 35 unit SUB-Q QAM RF: 0 Humalog KwikPen Insulin 200 unit/mL (3 mL) insulin pen 45 unit SUB-Q .sliding scale RF: 0 cholecalciferol (vitamin D3) [Vitamin D3] 50 mcg (2,000 unit) Capsule 50 mcg PO DAILY RF: 0 lisinopril 10 mg Tablet 10 mg PO DAILY Qty: 30 RF: 0 aspirin 325 mg Capsule 325 mg PO DAILY Qty: 30 RF: 0 docusate sodium 100 mg Capsule 100 mg PO BID Qty: 30 RF: 0 tramadol 100 mg tablet 100 mg PO Q6H PRN (Reason: pain) Qty: 10 RF: 0 Date of admission: 05/28/21 18:37 Primary Care Provider: Dominik Goel Admitting Provider: Destiney Connell Attending physician on admission: Destiney Connell Condition: Stable Quality VTE Prophylaxis VTE prophylaxis: pharmacologic ordered (lovenox)
[2021-05-31] MEDS: MAGNESIUM SULF 2 GM/WATER 50ML 2 GM/50 ML BAG IVPB (11:57)
[2021-05-31] MEDS: lisinopriL 10 MG TABLET PO (11:57)
[2021-05-31] MEDS: SODIUM CHLORIDE 0.9% IV 1,000 ML 100 ML IV CONT (11:57)
[2021-05-31 12:15] LABS: Glucose Point of Care 134 mg/dl (65-105)
--- NOTE | 2021-05-31 15:07 | PCPTNOTE ---
attempted to see pt x 2 this pm. pt off floor at CT scan. Will attempt PT tomorrow.
[2021-05-31 16:39] LABS: Glucose Point of Care 147 mg/dl (65-105)
[2021-06-01] VITALS: BP 136/72; PULSE 94; RESP 18; TEMP 36.9; O2SAT 93
[2021-06-01] MEDS: SODIUM CHLORIDE 0.9% IV 1,000 ML 100 ML IV CONT ×2 (00:02→09:36)
[2021-06-01 04:00] VITALS: BP 145/80; PULSE 91; RESP 16; TEMP 36.7; O2SAT 97
[2021-06-01 06:37] LABS: Hematocrit 27.4 % (37.0-47.0); Hemoglobin 9.3 g/dL (12.0-15.0); Immature Granulocyte Absolute 0.01 K/mm3 (0.00-0.031); Immature Granulocyte Percent A 0.2 % (0-0.5); Lymphocytes Absolute Auto 0.85 K/mm3 (0.9-3.2); Lymphocytes Percent Auto 15.6 % (18.3-44.2); Mean Corpuscular HGB Conc 33.9 g/dl (32-36); Mean Corpuscular Hemoglobin 30.1 pg (26-34); Mean Corpuscular Volume 88.7 fl (80-100); Mean Platelet Volume 9.4 fl (7.4-10.4); Monocytes Absolute Auto 0.3 K/mm3 (0.1-0.6); Monocytes Percent Auto 5.9 % (2.6-8.5); Neutrophils Absolute Auto 4.3 K/mm3 (1.3-6.7); Neutrophils Percent Auto 78.3 % (45.5-73.1); Platelet Count Result 241 k/mm3 (150-375); Red Blood Count 3.09 M/mm3 (4.2-5.4); Red Cell Distribution Width 14.5 % (11.5-14.5); White Blood Count 5.4 K/mm3 (4.5-10.0)
[2021-06-01 06:54] LABS: Alanine Aminotransferase 14 U/L (4-35); Albumin Level 2.8 g/dL (3.5-5.1); Alkaline Phosphatase 71 U/L (38-126); Anion Gap 9 mmol/L (8-16); Aspartate Amino Transferase 41 U/L (14-36); Bilirubin,Total 1.2 mg/dL (0.2-1.3); Blood Urea Nitrogen 30 mg/dL (7-17); Calcium 7.9 mg/dL (8.4-10.2); Carbon Dioxide 24 mmol/L (22-30); Chloride 99 mmol/L (98-107); Estimated CRCL calculation 33 ml/min; Estimated Glomerular Filt Rate 54; Glucose 128 mg/dL (65-110); Potassium 3.8 mmol/L (3.4-5.0); Sodium 132 mmol/L (137-145)
[2021-06-01 07:59] LABS: Glucose Point of Care 120 mg/dl (65-105)
[2021-06-01 08:00] VITALS: PULSE 99; RESP 16; O2SAT 99
[2021-06-01 08:37] VITALS: BP 162/68; PULSE 99; RESP 16; TEMP 36.4; O2SAT 99
--- NOTE | 2021-06-01 09:20 | PM.DS ---
DS: Admitting Diagnosis Discharge Date Date of service 06/01/21 @ 0920 Admitting Diagnosis COVID-19/pancolitis DS: Discharge Diagnosis Discharge Diagnosis (1) Lab test positive for detection of COVID-19 virus: Code(s): U07.1 - COVID-19 Status: Acute Assessment and Plan: Rapid at [place] found to be covid positive COVID negative on date of DC 05/21/21 Chest x-ray read mild opacities at the lung bases Chest CT showed bilateral airspace disease consistent with COVID pneumonia, with possible progression. No oxygen requirements and saturation 93-97% on room air COVID PCR is positive Labs are ok No indication for remdesivir or steroids at this time (2) Pneumonia due to COVID-19 virus: Code(s): U07.1 - COVID-19; J12.82 - Pneumonia due to coronavirus disease 2018 Status: Acute Assessment and Plan: See above (3) Insulin dependent diabetes mellitus: Status: Deleted Assessment and Plan: Continue to hold all insulins at this time Glucose on labs 52 05/28/21, 128 today Trend labs Adjust medications as needed (4) Hypertension: Code(s): I10 - Essential (primary) hypertension Status: Acute Assessment and Plan: BP is 162/68 today Increase lisinopril from 10mg to 20 mg PO daily Trend BP Adjust medications as needed. 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 No nausea or vomiting reported for last 24 hours Patient is eating and able to tolerate food White blood cell count 5.4 Probably viral however with the nausea vomiting and diarrhea will treat with antibiotics to ensure. DS: Summary Hospital Course Hospital Course: Patient is a 75-year-old female with a past medical history of hypertension, diabetes, hyperlipidemia, chronic kidney disease, and most recent right hip repair. Patient was at [facility] for rehab and was sent to the ED due to positive COVID swab at facility. Facility also noted the patient was confused. Patient was admitted to the hospital for further observation. Patient has not needed any oxygen or any intervention for COVID at this time. Patient is alert oriented x4 and brain MRI indicated old infarcts but did not indicate any other issues for confusion. Patient did have some bouts of nausea vomiting diarrhea. Patient got a CT of the abdomen chest and pelvis which did indicate patient had pancolitis. Patient was then started on Cipro and Flagyl p.o. patient was also noted to be tachycardic and received IV fluids in heart rate has been corrected. Patient has been able to tolerate foods and fluids without any issues of nausea vomiting for the last 24 hours. Labs have been stable however magnesium was noted to be low and was replaced as needed. Potassium was also low and was replaced as needed. Patient does have high blood pressure and it was treated with her home dose of 10
--- NOTE | 2021-06-01 09:20 | P.DS_ITS ---
DS: Admitting Diagnosis Discharge Date Date of service 06/01/21 @ 0920 Admitting Diagnosis COVID-19/pancolitis DS: Discharge Diagnosis Discharge Diagnosis (1) Lab test positive for detection of COVID-19 virus: Code(s): U07.1 - COVID-19 Status: Acute Assessment and Plan: * Rapid at [facility] found to be covid positive * COVID negative on date of DC 05/21/21 * Chest x-ray read mild opacities at the lung bases * Chest CT showed bilateral airspace disease consistent with COVID pneumonia, with possible progression. * No oxygen requirements and saturation 93-97% on room air * COVID PCR is positive * Labs are ok * No indication for remdesivir or steroids at this time (2) Pneumonia due to COVID-19 virus: Code(s): U07.1 - COVID-19; J12.82 - Pneumonia due to coronavirus disease 2018 Status: Acute Assessment and Plan: * See above (3) Insulin dependent diabetes mellitus: Status: Deleted Assessment and Plan: * Continue to hold all insulins at this time * Glucose on labs 52 05/28/21, 128 today * Trend labs * Adjust medications as needed (4) Hypertension: Code(s): I10 - Essential (primary) hypertension Status: Acute Assessment and Plan: * BP is 162/68 today * Increase lisinopril from 10mg to 20 mg PO daily * Trend BP * Adjust medications as needed. 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 * No nausea or vomiting reported for last 24 hours * Patient is eating and able to tolerate food * White blood cell count 5.4 * Probably viral however with the nausea vomiting and diarrhea will treat with antibiotics to ensure. DS: Summary Hospital Course Hospital Course: * Patient is a 75-year-old female with a past medical history of hypertension, diabetes, hyperlipidemia, chronic kidney disease, and most r ecent right hip repair. Patient was at [facility] for rehab and was sent to the ED due to positive COVID swab at facility. Facility also noted the patient was confused. Patient was admitted to the hospital for further observation. Patient has not needed any oxygen or any intervention for COVID at this time. Patient is alert oriented x4 and brain MRI indicated old infarcts but did not indicate any other issues for confusion. Patient did have some bouts of naus
[2021-06-01] MEDS: CIPROFLOXACIN 500 MG TAB PO (09:37)
[2021-06-01] MEDS: ENOXAPARIN 40 MG/0.4 ML SYRINGE SUB-Q (09:37)
[2021-06-01] MEDS: lisinopriL 10 MG TABLET PO ×2 (09:37→11:04)
[2021-06-01] MEDS: metroNIDAZOLE 250 MG TABLET 500 MG PO (09:37)
[2021-06-01 11:52] LABS: Glucose Point of Care 131 mg/dl (65-105)
[2021-06-01 12:00] VITALS: BP 167/72; PULSE 98; RESP 18; TEMP 36.9; O2SAT 96
== END 2021-06-01 14:20 | disposition swing bed (61) ==
LOC: ANHED 18:55 → ANH3MEDSUR 05-29 09:11
PROVIDERS: Nurse Practitioner; Physician Assistant; Admitting Provider Family Medicine; Emergency Provider Family Medicine; PCP Family Medicine; Visit Provider Internal Medicine
DX: U07.1 COVID-19 (principal); J12.82 Pneumonia due to coronavirus disease 2019; R53.1 Weakness; R11.2 Nausea with vomiting, unspecified; K52.9 Noninfective gastroenteritis and colitis, unspecified; R00.0 Tachycardia, unspecified; E11.649 Type 2 diabetes mellitus with hypoglycemia without coma; R91.8 Other nonspecific abnormal finding of lung field; E83.42 Hypomagnesemia; E87.6 Hypokalemia; R41.0 Disorientation, unspecified; I10 Essential (primary) hypertension; Z79.82 Long term (current) use of aspirin; Z79.4 Long term (current) use of insulin
CPT/HCPCS: 36415; 70551; 71045; 71260; 74177; 80048; 80053; 80076; 81001; 82728; 82948; 83615; 83735; 84443; 85025; 85027; 86140; 93005; 96361; 96365; 96366; 96372; 96376; 97110; 97161; 97166; 97530; 97535; 99285; A9270; C9803; G0378; J1650; J3475; J7030; Q9967; U0003; U0005

== ENCOUNTER 2021-06-01 15:14 | Inpatient (IN) | payer MEDICARE, SELFPAY ==
[2021-06-01 16:00] VITALS: BP 145/71; PULSE 93; RESP 16; TEMP 37.2; O2SAT 93
--- NOTE | 2021-06-01 16:00 | PC.NURSE ---
Pt admitted into room 209 from [facility] transfer. Pt brought in by EMS and assisted into bed. Pt oriented to the room and all questions answered at this time. Pt covid positive and isolation will be maintained at this time.
[2021-06-01 16:57] LABS: Glucose Point of Care 124 mg/dl (65-105)
[2021-06-01 17:14] VITALS: BMI 24.3
--- NOTE | 2021-06-01 21:25 | PM.IMHP ---
H&P: HPI History of Present Illness Date/Time: 06/01/21 21:25 Chief Complaint: Covid Posistive, S/P Right hip facture repair Narrative: 75-year-old white female presents for rehabilitation after being admitted at [facility] for positive COVID. She recently had a fall and sustained a right hip fracture that was repaired at [facility]. She was subsequently [facility] to a [facility] for [facility] and on 05/28 she had a routine rapid COVID test that was positive. She is unable to go back to [facility] for rehab due to being COVID positive. She needs to continue her rehabilitation for her right hip fracture and will continue that here until she is out of quarantine and then return to [facility]. She did not require any steroids or remdesivir at [facility] as she is completely asymptomatic. Review of Systems Review of Systems: Patient denies any ill symptoms including loss of taste or smell, fever chills, cough, nausea vomiting diarrhea, or any other symptoms consistent with COVID. All systems reviewed & are unremarkable except as noted in HPI and below PMFSH Past Medical History Medical History (Updated 06/01/21 @ 21:36 by Shaq Garcia MD) Basal cell carcinoma Closed intertrochanteric fracture of right hip (05/15/21) History of blood transfusion (05/2021) Acute blood loss anemia postoperatively. Hypertension Primary osteoarthritis involving multiple joints Pure hypercholesterolemia Type 2 diabetes mellitus, with long-term current use of insulin Complicated by diabetic retinopathy and neuropathy. Hemoglobin A1c was 7.5% on 05/15/2021. Vitamin D deficiency Surgical History Surgical History History of basal cell carcinoma excision History of section, low transverse History of laparoscopic cholecystectomy History of open reduction and internal fixation (ORIF) procedure (05/16/21) Gamma nail fixation of right hip fracture. History of surgical procedure on eye proper using laser Laser eye surgery for diabetic retinopathy. Family History Family History Father Family history of diabetes mellitus in first degree relative Family history of heart disease in male family member before age 55 Family history of congestive heart failure Mother Family history of malignant neoplasm of uterus Family history of malignant neoplasm of ovary Family history of malignant neoplasm Sibling Family history of malignant neoplasm Father Family history of type 2 diabetes mellitus Father Family history of type 2 diabetes mellitus Other Diabetes mellitus Hypertension Social History Social History Social History: Surrogate decision maker: Cuco Dhaliwal, . Code status: Full code. Smoking status: Never smoker Second hand tobacco smoke exposure: No Alcohol intake: unknown Substance use: unknown Substance use type: does not use Additional living arrangements comments: The patient lives in [place] with her . 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 They have a son and a daughter. Additional occupation/education comments: Retired. Spiritual care concerns: No Meds Home Medications and Allergies Home Medications Medication Instructions Recorded Confirmed Type cholecalciferol (vitamin D3) 50 mcg PO DAILY 05/15/21 06/01/21 History [Vitamin D3] aspirin 325 mg PO DAILY #30 cap 05/21/21 06/01/21 Rx docusate sodium 100 mg PO BID #30 cap 05/21/21 06/01/21 Rx tramadol 100 mg PO Q6H PRN #10 tablet 05/21/21 06/01/21 Rx ciprofloxacin HCl 500 mg PO Q12HR #9 tablet 06/01/21 06/01/21 Rx insulin glargine 35 unit SUBCUT QAM 06/01/21 06/01/21 History lisinopril 20 mg PO DAILY #30 tablet 06/01/21 06/01/21 Rx metronidazole 500 mg PO Q8HR #13 tablet 06/01/21 06/01/21 Rx Allergies Allergy/AdvReac Type Severity Reaction
[2021-06-01] MEDS: CIPROFLOXACIN 500 MG TAB PO (21:34)
[2021-06-01] MEDS: metroNIDAZOLE 250 MG TABLET 500 MG PO (21:35)
[2021-06-01 21:51] LABS: Glucose Point of Care 152 mg/dl (65-105)
[2021-06-02] VITALS: BP 161/73; PULSE 95; RESP 18; TEMP 36.5; O2SAT 95
[2021-06-02] MEDS: metroNIDAZOLE 250 MG TABLET 500 MG PO ×2 (05:47→21:30)
[2021-06-02 07:59] LABS: Glucose Point of Care 153 mg/dl (65-105)
[2021-06-02 08:00] VITALS: BP 141/72; PULSE 99; RESP 16; TEMP 36.7; O2SAT 92
[2021-06-02] MEDS: ASPIRIN 325 MG ENTERIC TABLET PO (09:33)
[2021-06-02] MEDS: DOCUSATE SODIUM 100 MG CAPSULE PO ×2 (09:33→17:15)
[2021-06-02] MEDS: CIPROFLOXACIN 500 MG TAB PO ×2 (09:33→21:31)
[2021-06-02] MEDS: lisinopriL 20 MG TABLET PO (09:34)
[2021-06-02] MEDS: INSULIN GLARGINE (*BKC) 100 UNITS/ML 35 UNITS SUB-Q (09:34)
[2021-06-02 11:52] LABS: Glucose Point of Care 145 mg/dl (65-105)
[2021-06-02] MEDS: traMADol HCL (*CRX) 50 MG TABLET 100 MG PO (12:09)
--- NOTE | 2021-06-02 13:58 | P.PN_ITS ---
Progress Note: A&P Assessment and Plan (1) Weakness: Code(s): R53.1 - Weakness <ROSETTE Rutledge - Last Filed: 06/02/21 14:51> Status: Acute <ROSETTE Rutledge - Last Filed: 06/02/21 14:51> Assessment and Plan: ? Exhibit tolerance during physical activity as evidenced by a normal fluctuation of vital signs during physical activity. ? Patient will be ability to perform required activities of daily living. ? Provide appropriate nutrition for healing and strength. ? Use appropriate to prevent falls. ? Continue physical therapy/occupational therapy. <ROSETTE Rutledge - Last Filed: 06/02/21 14:51> (2) Type 2 diabetes mellitus, with long-term current use of insulin: Code(s): E11.9 - Type 2 diabetes mellitus without complications; Z79.4 - [facility] (current) use of insulin <ROSETTE Rutledge - Last Filed: 06/02/21 14:51> Status: Acute <ROSETTE Rutledge - Last Filed: 06/02/21 14:51> Assessment and Plan: * Continue Lantus 35 mg daily * Continue sliding scale with hypoglycemic protocol and Accu-Cheks * Will adjust medication as needed <ROSETTE Rutledge - Last Filed: 06/02/21 14:51> (3) Colitis: Code(s): K52.9 - Noninfective gastroenteritis and colitis, unspecified <ROSETTE Rutledge - Last Filed: 06/02/21 14:51> Status: Acute <ROSETTE Rutledge - Last Filed: 06/02/21 14:51> Assessment and Plan: * Nausea and vomiting resolved * CT abdomen indicated pancolitis * Continue Cipro Flagyl p.o. * Rapid at [facility] found to be covid positive * COVID negative on date of DC 05/21/21 <ROSETTE Rutledge - Last Filed: 06/02/21 14:51> (4) Pneumonia due to COVID-19 virus: Code(s): U07.1 - COVID-19; J12.82 - Pneumonia due to coronavirus disease 2019 <Deandra MyersJDKrishnaDavid - Last Filed: 06/02/21 14:51> Status: Acute <ROSETTE Rutledge - Last Filed: 06/02/21 14:51> Assessment and Plan: * CT of the abdomen chest and pelvis indicates COVID pneumonia * Patient asymptomatic * No treatment needed <ROSETTE Rutledge - Last Filed: 06/02/21 14:51> (5) Hypertension: Code(s): I10 - Essential (primary) hypertension <ROSETTE Ruteldge - Last Filed: 06/02/21 14:51> Status: Acute <ROSETTE Rutledge - Last Filed: 06/02/21 14:51> Assessment and Plan: * Stable * Continue lisinopril 20 mg daily * Vital signs as ordered * Will adjust medication as needed <Deandra MyersSAIWilda - Last Filed: 06/02/21 14:51> Subjective Date/time seen: 06/02/21 13:58 Patient is a 75-year-old female with a past medical history of hypertension, diabetes, hyperlipidemia, chronic kidney disease, and most recent right hip repair. Patient was at [facility] for rehab and was sent to the ED due to positive COVID swab at facility. Patient was admitted to the hospital for further observation. Patient has not needed any oxygen or any intervention for COVID . Patient did have some bouts of nausea vomiting diarrhea, a CT was completed which indicated colitis she was given Cipro and Flagyl for treatment. Patient denies chest pain, shortness of breath, weakness, fatigue, nausea, vomiting, diarrhea, constipation, sweats, fevers, or chills . Patient admitted in swing bed for rehabilitation due to decreased balance decreased mobility in severe limited function endurant and/or mobility. <Deandra MyersROSETTE - Last Filed: 06/02/21 14:51> Review of Systems Review of Systems: A 14 organ system Review of System
--- NOTE | 2021-06-02 13:58 | WPDPN ---
Progress Note: A&P Assessment and Plan (1) Weakness: Code(s): R53.1 - Weakness <Deandra Wheat ROSETTE Myers - Last Filed: 06/02/21 14:51> Status: Acute <Deandra MyersJDKrishnaDavid - Last Filed: 06/02/21 14:51> Assessment and Plan: ? Exhibit tolerance during physical activity as evidenced by a normal fluctuation of vital signs during physical activity. ? Patient will be ability to perform required activities of daily living. ? Provide appropriate nutrition for healing and strength. ? Use appropriate to prevent falls. ? Continue physical therapy/occupational therapy. <Timothysam BradROSETTE Blanco - Last Filed: 06/02/21 14:51> (2) Type 2 diabetes mellitus, with long-term current use of insulin: Code(s): E11.9 - Type 2 diabetes mellitus without complications; Z79.4 - [facility] (current) use of insulin <ROSETTE Rutledge - Last Filed: 06/02/21 14:51> Status: Acute <Deandra BradJD BlancoKrishnaDavid - Last Filed: 06/02/21 14:51> Assessment and Plan: Continue Lantus 35 mg daily Continue sliding scale with hypoglycemic protocol and Accu-Cheks Will adjust medication as needed <ROSETTE Rutledge - Last Filed: 06/02/21 14:51> (3) Colitis: Code(s): K52.9 - Noninfective gastroenteritis and colitis, unspecified <ROSETTE Rutldege - Last Filed: 06/02/21 14:51> Status: Acute <Timothysam BradJD BlancoKrishnaDavid - Last Filed: 06/02/21 14:51> Assessment and Plan: Nausea and vomiting resolved CT abdomen indicated pancolitis Continue Cipro Flagyl p.o. Rapid at [place] found to be covid positive COVID negative on date of DC 05/21/21 <ROSETTE Rutledge - Last Filed: 06/02/21 14:51> (4) Pneumonia due to COVID-19 virus: Code(s): U07.1 - COVID-19; J12.82 - Pneumonia due to coronavirus disease 2019 <JD RutledgeMona - Last Filed: 06/02/21 14:51> Status: Acute <ROSETTE Rutledge - Last Filed: 06/02/21 14:51> Assessment and Plan: CT of the abdomen chest and pelvis indicates COVID pneumonia Patient asymptomatic No treatment needed <Deandra MyersJDMona - Last Filed: 06/02/21 14:51> (5) Hypertension: Code(s): I10 - Essential (primary) hypertension <Deandra Wheat Louis ROSETTE - Last Filed: 06/02/21 14:51> Status: Acute <ROSETTE Rutledge - Last Filed: 06/02/21 14:51> Assessment and Plan: Stable Continue lisinopril 20 mg daily Vital signs as ordered Will adjust medication as needed <Deandra MyersSAIWilda - Last Filed: 06/02/21 14:51> Subjective Date/time seen: 06/02/21 13:58 Patient is a 75-year-old female with a past medical history of hypertension, diabetes, hyperlipidemia, chronic kidney disease, and most recent right hip repair. Patient was at [facility] for rehab and was sent to the ED due to positive COVID swab at facility. Patient was admitted to the hospital for further observation. Patient has not needed any oxygen or any intervention for COVID . Patient did have some bouts of nausea vomiting diarrhea, a CT was completed which indicated colitis she was given Cipro and Flagyl for treatment. Patient denies chest pain, shortness of breath, weakness, fatigue, nausea, vomiting, diarrhea, constipation, sweats, fevers, or chills . Patient admitted in swing bed for rehabilitation due to decreased balance decreased mobility in severe limited function endurant and/or mobility. <Deandra Jarret JD MyersKrishnaDavid - Last Filed: 06/02/21 14:51> Review of Systems Review of Systems: A 14 organ system Review of Systems was performed and pertinent positives included in the HPI, otherwise remaining ROS is negative. <Deandra Jarret ROSETTE Myers - Last Filed: 06/02/21 14:51> Exam Narrative: GENERAL: This is a well-nourished, well-developed patient, in no apparent distress. HEAD: normocephalic, atraumatic. EYES: PERRL. Sclera clear/white. Vision is ashley
[2021-06-02 16:00] VITALS: BP 139/61; PULSE 89; RESP 18; TEMP 36.4; O2SAT 97
[2021-06-02 17:08] LABS: Glucose Point of Care 133 mg/dl (65-105)
--- NOTE | 2021-06-02 19:20 | PC.NURSE ---
Completed change of shift report. Patient was sleeping in recliner. Able to wake up when her name is called. Patient stated she is not having any pain, and did not need anything at this time. Patient stated she wanted to stay in her recliner for a while, as she is not ready to go to bed.
[2021-06-02 22:09] LABS: Glucose Point of Care 111 mg/dl (65-105)
[2021-06-02 23:49] VITALS: BP 159/95; PULSE 98; RESP 17; TEMP 36.8; O2SAT 96
--- NOTE | 2021-06-02 23:50 | PC.NURSE ---
Pt whiteboard updated. VS completed. Pt was arousable to name and went back to sleep while this marketing copywriter was changing the trash bag in the room. Call light placed within reach.
--- NOTE | 2021-06-03 01:55 | PC.NURSE ---
Pt is in pleasant mood and was awake upon this newspaper writer entering the room. Pt was able to assist in turning herself enough to place the pillow underneath her. Bed is in lowest position and 3 bed rails raised. Call light within reach and pt denied having any needs at this time.
--- NOTE | 2021-06-03 04:18 | PC.NURSE ---
Pt was transferred to the bedside commode with sarasteady, gait belt, and 1 assist. Pt performed poorly and did not seem to understand verbal instruction completely. Pt did void mid transfer onto the floor. This editorial writer changed her depend and cleaned the floor with antibacterial wipes. Pt asked where she was at one point, but then remembered the name of the hospital. The pt was brought back to bed and the bed is in the lowest position with 3 bed rails raised. Call light was placed within reach.
--- NOTE | 2021-06-03 05:05 | PC.NURSE ---
Pt rounding completed. Pt is sleeping on her back with the TV on. 550 ml of fresh ice water brought to the pt and call light is within reach.
[2021-06-03] MEDS: metroNIDAZOLE 250 MG TABLET 500 MG PO ×2 (05:56→21:16)
[2021-06-03 07:25] VITALS: BP 141/75; PULSE 99; RESP 18; TEMP 36.4; O2SAT 94
--- NOTE | 2021-06-03 08:15 | PC.NURSE ---
Shalini Rosado used to get patient from bed to chair for breakfast, tolerated well
[2021-06-03] MEDS: lisinopriL 20 MG TABLET PO (09:14)
[2021-06-03] MEDS: CHOLECALCIFEROL 1,000 UNITS TABLET 2000 UNITS PO (09:14)
[2021-06-03] MEDS: DOCUSATE SODIUM 100 MG CAPSULE PO ×2 (09:15→17:00)
[2021-06-03] MEDS: ASPIRIN 325 MG ENTERIC TABLET PO (09:15)
--- NOTE | 2021-06-03 09:15 | PC.NURSE ---
returned from [facility], PICC line in right arm, double lumen, 39 cm length, 0 at the skin
[2021-06-03] MEDS: PROMETHAZINE HCL 25 MG/ML AMPUL IM (10:55)
--- NOTE | 2021-06-03 11:35 | PCOTNOTE ---
OT attempted to see patient for AM treatment however nursing reports that patient is currently vomiting. Will check in with patient this PM.
[2021-06-03 12:04] LABS: Glucose Point of Care 147 mg/dl (65-105)
[2021-06-03 12:10] LABS: Basophils Absolute Auto 0.01 K/mm3 (0.00-0.10); Basophils Percent Auto 0.2 % (0.0-1.0); Eosinophils Absolute Auto 0.04 K/mm3 (0.02-0.50); Eosinophils Percent Auto 0.9 % (1.0-6.0); Hematocrit 29.9 % (35.0-42.0); Hemoglobin 10.3 g/dL (11.7-13.8); Immature Granulocyte Absolute 0.03 K/mm3 (0.00-0.00); Immature Granulocyte Percent A 0.6 % (0.0-0.0); Lymphocytes Absolute Auto 0.77 K/mm3 (1.10-4.50); Lymphocytes Percent Auto 16.6 % (18.0-42.0); Mean Corpuscular HGB Conc 34.4 g/dL (32.0-36.0); Mean Corpuscular Hemoglobin 30.7 pg (27.0-31.0); Mean Corpuscular Volume 89.3 fL (78.0-102.0); Mean Platelet Volume 8.8 fl (9.2-11.8); Monocytes Absolute Auto 0.42 K/mm3 (0.10-0.90); Monocytes Percent Auto 9.1 % (2.0-11.0); Neutrophils Absolute Auto 3.4 K/mm3 (1.7-7.2); Neutrophils Percent Auto 72.6 % (50.0-70.0); Platelet Count Result 331 K/mm3 (150-420); Red Blood Count 3.35 M/mm3 (4.20-5.40); Red Cell Distribution Width 14.5 % (11.6-14.4); White Blood Count 4.6 K/mm3 (4.8-10.8)
[2021-06-03 12:58] LABS: Alanine Aminotransferase 17 U/L (14-59); Albumin Level 2.5 g/dL (3.4-5.0); Alkaline Phosphatase 76 U/L (46-116); Anion Gap 10 mmol/L (8-16); Aspartate Amino Transferase 30 U/L (15-37); Bilirubin,Total 1.2 mg/dL (0.00-1.00); Blood Urea Nitrogen 24 mg/dL (7-18); Calcium 8.4 mg/dL (8.5-10.1); Carbon Dioxide 28 mmol/L (21-32); Chloride 103 mmol/L (98-108); Estimated CRCL calculation 30 ml/min; Estimated Glomerular Filt Rate 48; Glucose 119 mg/dL (70-99); Osmolality Calculated 297 mOsm/kg (285-295); Potassium 3.6 mmol/L (3.5-5.1); Sodium 141 mmol/L (136-145); Total Protein 6.3 g/dL (6.4-8.2)
[2021-06-03 16:00] VITALS: BP 160/83; PULSE 107; RESP 16; TEMP 36.9; O2SAT 96
[2021-06-03] MEDS: CIPROFLOXACIN 500 MG TAB PO (20:59)
[2021-06-03 21:15] LABS: Glucose Point of Care 104 mg/dl (65-105)
[2021-06-03 21:15] LABS: Glucose Point of Care 97 mg/dl (65-105)
[2021-06-04] VITALS: BP 118/65; PULSE 103; RESP 20; TEMP 36.4; O2SAT 98
[2021-06-04 07:45] VITALS: BP 130/70; PULSE 100; RESP 18; TEMP 36.8; O2SAT 93
[2021-06-04 08:18] LABS: Glucose Point of Care 79 mg/dl (65-105)
[2021-06-04] MEDS: DOCUSATE SODIUM 100 MG CAPSULE PO ×2 (10:05→17:50)
[2021-06-04] MEDS: traMADol HCL (*CRX) 50 MG TABLET 100 MG PO (10:05)
[2021-06-04] MEDS: CHOLECALCIFEROL 1,000 UNITS TABLET 2000 UNITS PO (10:05)
[2021-06-04] MEDS: CIPROFLOXACIN 500 MG TAB PO ×2 (10:06→21:25)
[2021-06-04] MEDS: lisinopriL 20 MG TABLET PO (10:06)
[2021-06-04] MEDS: ASPIRIN 325 MG ENTERIC TABLET PO (10:06)
[2021-06-04 12:31] LABS: Glucose Point of Care 108 mg/dl (65-105)
[2021-06-04] MEDS: MEGESTROL ACETATE (*CHEMO) 20 MG TABLET PO ×2 (13:39→17:50)
[2021-06-04 15:40] VITALS: BP 140/91; PULSE 96; RESP 18; TEMP 36.8; O2SAT 97
[2021-06-04 17:14] LABS: Glucose Point of Care 169 mg/dl (65-105)
[2021-06-04 21:45] LABS: Glucose Point of Care 164 mg/dl (65-105)
[2021-06-05] VITALS: BP 148/78; PULSE 84; RESP 18; TEMP 37.2; O2SAT 99
--- NOTE | 2021-06-05 00:08 | PC.NURSE ---
Upon entering pt room, pt sleeping but awakens easily. Pt has no c/o at this time, pt repositioned and turned, night light on in room, call lora at pt side. Encouraged to call for anything needed, pt verbalizes understanding.
--- NOTE | 2021-06-05 02:09 | PC.NURSE ---
Pt lying in bed c gown off, pt reports feeling warm, room temp. turned down and pt assisted and repositioned in bed c call lora in reach. Pt watching TV and has no c/o.
--- NOTE | 2021-06-05 04:20 | PC.NURSE ---
Pt assisted x1 c use of walker to BSC using toe touch to pivot and sit. Pt urinated and back to bed. Pt ralph activity well. Call lora in pt reach, voices no concerns at this time.
[2021-06-05 08:00] VITALS: BP 175/92; PULSE 102; RESP 17; TEMP 36.7; O2SAT 98
[2021-06-05 08:40] LABS: Glucose Point of Care 157 mg/dl (65-105)
[2021-06-05] MEDS: CIPROFLOXACIN 500 MG TAB PO ×2 (08:59→20:06)
[2021-06-05] MEDS: ASPIRIN 325 MG ENTERIC TABLET PO (08:59)
[2021-06-05] MEDS: INSULIN GLARGINE (*BKC) 100 UNITS/ML 35 UNITS SUB-Q (09:00)
[2021-06-05] MEDS: lisinopriL 20 MG TABLET PO (09:00)
[2021-06-05] MEDS: CHOLECALCIFEROL 1,000 UNITS TABLET 2000 UNITS PO (09:00)
[2021-06-05] MEDS: MEGESTROL ACETATE (*CHEMO) 20 MG TABLET PO ×3 (09:02→16:12)
[2021-06-05 09:40] LABS: Glucose Point of Care 105 mg/dl (65-105)
[2021-06-05 12:28] LABS: Glucose Point of Care 169 mg/dl (65-105)
[2021-06-05 16:00] VITALS: BP 140/82; PULSE 74; RESP 17; TEMP 36.6; O2SAT 98
[2021-06-05] MEDS: traMADol HCL (*CRX) 50 MG TABLET 100 MG PO (16:13)
[2021-06-05 17:02] LABS: Glucose Point of Care 174 mg/dl (65-105)
[2021-06-05 22:18] LABS: Glucose Point of Care 171 mg/dl (65-105)
[2021-06-06] VITALS: BP 148/61; PULSE 91; RESP 15; TEMP 37.1; O2SAT 98
--- NOTE | 2021-06-06 00:31 | PC.NURSE ---
Pt whiteboard updated. Pt denies any pain at this time and has her call light within reach. Trash removed/replaced at this time.
--- NOTE | 2021-06-06 02:05 | PC.NURSE ---
Pt rounding completed. Pt is sleeping on her back with the bed in lowest position. Night light is on for pt safety and the call light is within reach.
--- NOTE | 2021-06-06 04:06 | PC.NURSE ---
Pt rounding completed. Pt is currently sleeping in bed. Call light within reach.
[2021-06-06 07:55] VITALS: BP 154/80; PULSE 98; RESP 18; TEMP 36.8; O2SAT 98
[2021-06-06 08:35] LABS: Glucose Point of Care 126 mg/dl (65-105)
[2021-06-06] MEDS: MEGESTROL ACETATE (*CHEMO) 20 MG TABLET PO ×3 (09:57→17:20)
[2021-06-06] MEDS: lisinopriL 20 MG TABLET PO (09:57)
[2021-06-06] MEDS: CHOLECALCIFEROL 1,000 UNITS TABLET 2000 UNITS PO (09:57)
[2021-06-06] MEDS: DOCUSATE SODIUM 100 MG CAPSULE PO ×2 (09:58→17:20)
[2021-06-06] MEDS: ASPIRIN 325 MG ENTERIC TABLET PO (09:58)
[2021-06-06 12:21] LABS: Glucose Point of Care 214 mg/dl (65-105)
[2021-06-06 15:50] VITALS: BP 142/75; PULSE 96; RESP 18; TEMP 37; O2SAT 98
[2021-06-06 18:11] LABS: Glucose Point of Care 242 mg/dl (65-105)
[2021-06-06 22:28] LABS: Glucose Point of Care 206 mg/dl (65-105)
[2021-06-07] VITALS: BP 172/67; PULSE 95; RESP 16; TEMP 36.3; O2SAT 98
--- NOTE | 2021-06-07 04:06 | PC.NURSE ---
Pt had voided in her depend while sleeping. Depend was changed and perianal hygiene care provided. Pt tolerated well. Bed placed in lowest position and night light on for pt safety. Call light light within reach.
[2021-06-07 08:12] LABS: Glucose Point of Care 208 mg/dl (65-105)
[2021-06-07] MEDS: lisinopriL 20 MG TABLET PO (09:46)
[2021-06-07] MEDS: MEGESTROL ACETATE (*CHEMO) 20 MG TABLET PO ×3 (09:46→16:57)
[2021-06-07] MEDS: DOCUSATE SODIUM 100 MG CAPSULE PO ×2 (09:46→16:57)
[2021-06-07] MEDS: CHOLECALCIFEROL 1,000 UNITS TABLET 2000 UNITS PO (09:46)
[2021-06-07] MEDS: ASPIRIN 325 MG ENTERIC TABLET PO (09:46)
[2021-06-07] MEDS: INSULIN GLARGINE (*BKC) 100 UNITS/ML 35 UNITS SUB-Q (09:57)
[2021-06-07 12:23] LABS: Glucose Point of Care 169 mg/dl (65-105)
[2021-06-07] MEDS: traMADol HCL (*CRX) 50 MG TABLET 100 MG PO (12:51)
[2021-06-07 15:34] VITALS: BP 165/73; PULSE 104; RESP 20; TEMP 36.4; O2SAT 99
[2021-06-07 16:50] LABS: Glucose Point of Care 198 mg/dl (65-105)
[2021-06-07 21:00] LABS: Glucose Point of Care 168 mg/dl (65-105)
[2021-06-07 23:42] VITALS: BP 178/79; PULSE 97; RESP 18; TEMP 35.6; O2SAT 98
[2021-06-08 06:51] LABS: Hematocrit 30.9 % (35.0-42.0); Hemoglobin 10.4 g/dL (11.7-13.8); Mean Corpuscular HGB Conc 33.7 g/dL (32.0-36.0); Mean Corpuscular Hemoglobin 29.6 pg (27.0-31.0); Mean Platelet Volume 8.8 fl (9.2-11.8); Platelet Count Result 495 K/mm3 (150-420); Red Blood Count 3.51 M/mm3 (4.20-5.40); Red Cell Distribution Width 14.5 % (11.6-14.4); White Blood Count 5.6 K/mm3 (4.8-10.8)
[2021-06-08 07:11] LABS: Alanine Aminotransferase 11 U/L (14-59); Albumin Level 2.2 g/dL (3.4-5.0); Alkaline Phosphatase 72 U/L (46-116); Anion Gap 9 mmol/L (8-16); Aspartate Amino Transferase 12 U/L (15-37); Bilirubin,Total 0.8 mg/dL (0.00-1.00); Blood Urea Nitrogen 17 mg/dL (7-18); Calcium 8.3 mg/dL (8.5-10.1); Carbon Dioxide 32 mmol/L (21-32); Chloride 102 mmol/L (98-108); Estimated CRCL calculation 38 ml/min; Estimated Glomerular Filt Rate > 60; Glucose 139 mg/dL (70-99); Osmolality Calculated 299 mOsm/kg (285-295); Potassium 3.3 mmol/L (3.5-5.1); Sodium 143 mmol/L (136-145); Total Protein 5.6 g/dL (6.4-8.2)
[2021-06-08 08:00] VITALS: BP 167/84; PULSE 101; RESP 16; TEMP 36.2; O2SAT 99
[2021-06-08 08:28] LABS: Glucose Point of Care 156 mg/dl (65-105)
[2021-06-08 08:42] LABS: Magnesium 1.6 mg/dL (1.8-2.4)
[2021-06-08] MEDS: MEGESTROL ACETATE (*CHEMO) 20 MG TABLET PO ×3 (09:45→16:54)
[2021-06-08] MEDS: INSULIN GLARGINE (*BKC) 100 UNITS/ML 35 UNITS SUB-Q (09:45)
[2021-06-08] MEDS: CHOLECALCIFEROL 1,000 UNITS TABLET 2000 UNITS PO (09:46)
[2021-06-08] MEDS: POTASSIUM CHLORIDE 20 MEQ TABLET 40 MEQ PO (09:46)
[2021-06-08] MEDS: ASPIRIN 325 MG ENTERIC TABLET PO (09:46)
[2021-06-08] MEDS: lisinopriL 20 MG TABLET PO (09:46)
[2021-06-08] MEDS: DOCUSATE SODIUM 100 MG CAPSULE PO ×2 (09:46→16:54)
[2021-06-08] MEDS: traMADol HCL (*CRX) 50 MG TABLET 100 MG PO (09:47)
[2021-06-08] MEDS: MAGNESIUM OXIDE 400 MG TABLET PO ×2 (09:49→16:54)
[2021-06-08 12:16] LABS: Glucose Point of Care 219 mg/dl (65-105)
--- NOTE | 2021-06-08 15:11 | PM.IMPN ---
Progress Note: A&P Assessment and Plan (1) Weakness: Code(s): R53.1 - Weakness Status: Acute Assessment and Plan: ? Exhibit tolerance during physical activity as evidenced by a normal fluctuation of vital signs during physical activity. ? Patient will be ability to perform required activities of daily living. ? Provide appropriate nutrition for healing and strength. ? Use appropriate to prevent falls. ? Continue physical therapy/occupational therapy. 06/08/2021 Continues to work with PT, does not follow direction well per nursing staff and PT (2) Type 2 diabetes mellitus, with long-term current use of insulin: Code(s): E11.9 - Type 2 diabetes mellitus without complications; Z79.4 - [facility] (current) use of insulin Status: Acute Assessment and Plan: Continue Lantus 35 mg daily Continue sliding scale with hypoglycemic protocol and Accu-Cheks Will adjust medication as needed 06/08/2021 Glucose 150-220, no changes need at this time (3) Colitis: Code(s): K52.9 - Noninfective gastroenteritis and colitis, unspecified Status: Acute Assessment and Plan: Nausea and vomiting resolved CT abdomen indicated pancolitis Continue Cipro Flagyl p.o. Rapid at [place] found to be covid positive COVID negative on date of DC 05/21/21 06/08/2021 resolved (4) Pneumonia due to COVID-19 virus: Code(s): U07.1 - COVID-19; J12.82 - Pneumonia due to coronavirus disease 2019 Status: Acute Assessment and Plan: CT of the abdomen chest and pelvis indicates COVID pneumonia Patient asymptomatic No treatment needed 06/08/2021 Off isolation (5) Hypertension: Code(s): I10 - Essential (primary) hypertension Status: Acute Assessment and Plan: Stable Continue lisinopril 20 mg daily Vital signs as ordered Will adjust medication as needed 06/08/2021 125-170 systolic , 60-80 diastolic, HR 90 - < 110, Stable No changes to medications at this time Subjective Date/time seen: 06/08/21 15:11 Pt resting in her chair today. She did not eat very much of her breakfast and a little better with lunch. She needs encouragement to eat. Ordered meals to be precut to bite size pieces. Pt is more alert but not very active. Pt does not complain of any pain and states her appetite is not very good. Pt has a care conference tomorrow. Pt has no other concerns at this time. Spoke with son who had questions about the brain MRI and physical therapy. I discussed these with him. Review of Systems Constitutional: Constitutional: Denies body ache(s), Denies chills and Denies fever(s) Cardiovascular: Cardiovascular: Denies chest pain and Denies chest pain at rest Respiratory: Respiratory: Reports no additional respiratory complaints Gastrointestinal: Gastrointestinal: Reports no additional gastrointestinal complaints Musculoskeletal: Musculoskeletal: Reports no additional musculoskeletal complaints Exam Const: General: cooperative (but difficulty understanding), no acute distress, alert, awake, Physically active and tired appearing Nutritional Appearance: average body habitus Resp: Effort & Inspection: normal respiratory effort Auscultation: clear to auscultation bilaterally GI: GI Palp: Yes Soft to palpation and No Tenderness to palpation present (GI) Auscultation: normal bowel sounds Other: poor appetite Skin: General skin exam: normal color and crusts Neuro: General: oriented to person and oriented to place Cranial nerves: Yes CN's II-XII intact bilaterally (grossly intact) Speech: Abnormal speech present (slow to respond) Extrem: General: no pedal edema and no calf tenderness Psych: Appearance: grossly normal Objective Data Vital Signs Vital Signs: Vital Signs - 24 hr 06/07/21 15:34 06/07/21 23:42 06/08/21 08:00 Temperature 97.5 F L 96.0 F L 97.2 F L Pulse Rate 104 H 97 101 H Respiratory Rate 20 18 16 Blood Pressure 165/73 H 178/79 H 167/84 H Pulse Oximet
[2021-06-08 15:24] VITALS: BP 125/73; PULSE 101; RESP 16; TEMP 36.4; O2SAT 99
[2021-06-08 16:35] LABS: Glucose Point of Care 134 mg/dl (65-105)
[2021-06-08 20:32] LABS: Glucose Point of Care 144 mg/dl (65-105)
[2021-06-09] VITALS: BP 154/81; PULSE 94; RESP 18; TEMP 36.6; O2SAT 97
[2021-06-09 08:00] VITALS: BP 107/63; PULSE 102; RESP 12; TEMP 36.3; O2SAT 100
[2021-06-09 08:18] LABS: Glucose Point of Care 89 mg/dl (65-105)
[2021-06-09] MEDS: CHOLECALCIFEROL 1,000 UNITS TABLET 2000 UNITS PO (09:42)
[2021-06-09] MEDS: ASPIRIN 325 MG ENTERIC TABLET PO (09:43)
[2021-06-09] MEDS: lisinopriL 20 MG TABLET PO (09:44)
[2021-06-09] MEDS: MAGNESIUM OXIDE 400 MG TABLET PO ×2 (09:44→17:19)
[2021-06-09] MEDS: DOCUSATE SODIUM 100 MG CAPSULE PO ×2 (09:44→17:18)
[2021-06-09] MEDS: MEGESTROL ACETATE (*CHEMO) 20 MG TABLET PO ×3 (09:45→17:19)
--- NOTE | 2021-06-09 15:15 | PC.NURSE ---
Report received off going nurse; PT in progress. No signs of distress or discomfort.
[2021-06-09 16:00] VITALS: BP 124/61; PULSE 98; RESP 16; TEMP 36.4; O2SAT 96
[2021-06-09 16:33] LABS: Glucose Point of Care 140 mg/dl (65-105)
--- NOTE | 2021-06-09 16:47 | PC.NURSE ---
PT here and working with patient.
--- NOTE | 2021-06-09 23:05 | PC.NURSE ---
Turned to left. Rolled blanket between legs.
[2021-06-10] VITALS: BP 161/59; PULSE 107; RESP 16; TEMP 35.7; O2SAT 99
--- NOTE | 2021-06-10 02:26 | PC.NURSE ---
Patient has had 2 soft to loose brown stools. Denies any abdominal discomfort. No nausea or vomiting. Abdomen soft, flat.
--- NOTE | 2021-06-10 02:29 | PC.NURSE ---
Changed dressing on right hip. Cleansed area with soap and water. Incision is healed. Well approximated. Skin colored. No s/s of infection. Band aid applied to protect incision. --Mine mauricio RN
[2021-06-10 08:00] VITALS: BP 134/76; PULSE 110; RESP 14; TEMP 36.7; O2SAT 99
--- NOTE | 2021-06-10 08:10 | PC.NURSE ---
Blood sugar check 182
[2021-06-10] MEDS: MEGESTROL ACETATE (*CHEMO) 20 MG TABLET PO ×3 (08:16→17:31)
[2021-06-10] MEDS: CHOLECALCIFEROL 1,000 UNITS TABLET 2000 UNITS PO (08:16)
[2021-06-10] MEDS: ASPIRIN 325 MG ENTERIC TABLET PO (08:17)
[2021-06-10] MEDS: MAGNESIUM OXIDE 400 MG TABLET PO ×2 (08:17→17:31)
[2021-06-10] MEDS: lisinopriL 20 MG TABLET PO (08:17)
[2021-06-10] MEDS: INSULIN GLARGINE (*BKC) 100 UNITS/ML 35 UNITS SUB-Q (08:49)
[2021-06-10 09:00] LABS: Glucose Point of Care 221 mg/dl (65-105)
[2021-06-10 10:37] VITALS: BP 98/48; PULSE 96
--- NOTE | 2021-06-10 11:40 | PC.NURSE ---
Blood sugar check 295
[2021-06-10] MEDS: traMADol HCL (*CRX) 50 MG TABLET 100 MG PO (14:32)
[2021-06-10 15:45] VITALS: BP 106/57; PULSE 97; RESP 18; TEMP 36.4; O2SAT 98
[2021-06-10 17:06] LABS: Glucose Point of Care 177 mg/dl (65-105)
[2021-06-10 21:12] VITALS: PULSE 110
[2021-06-10] MEDS: METOPROLOL TARTRATE 6.25 MG TABLET PO (21:12)
[2021-06-10 22:28] LABS: Glucose Point of Care 150 mg/dl (65-105)
[2021-06-10 23:44] VITALS: BP 138/67; PULSE 86; RESP 20; TEMP 35.8; O2SAT 98
[2021-06-11 08:00] VITALS: BP 124/67; PULSE 87; RESP 18; TEMP 36.6; O2SAT 99
[2021-06-11 08:20] LABS: Glucose Point of Care 147 mg/dl (65-105)
[2021-06-11] MEDS: INSULIN GLARGINE (*BKC) 100 UNITS/ML 35 UNITS SUB-Q (09:24)
[2021-06-11] MEDS: MEGESTROL ACETATE (*CHEMO) 20 MG TABLET PO ×3 (09:24→16:46)
[2021-06-11 09:25] VITALS: PULSE 81
[2021-06-11] MEDS: METOPROLOL TARTRATE 6.25 MG TABLET PO ×2 (09:25→20:36)
[2021-06-11] MEDS: lisinopriL 20 MG TABLET PO (09:26)
[2021-06-11] MEDS: ASPIRIN 325 MG ENTERIC TABLET PO (09:26)
[2021-06-11] MEDS: CHOLECALCIFEROL 1,000 UNITS TABLET 2000 UNITS PO (09:26)
[2021-06-11] MEDS: MAGNESIUM OXIDE 400 MG TABLET PO ×2 (09:26→16:46)
[2021-06-11 12:14] LABS: Glucose Point of Care 144 mg/dl (65-105)
[2021-06-11 16:00] VITALS: BP 108/62; PULSE 84; RESP 16; TEMP 35.8; O2SAT 99
[2021-06-11 17:27] LABS: Glucose Point of Care 154 mg/dl (65-105)
--- NOTE | 2021-06-11 20:30 | PC.NURSE ---
Pt sitting upright in bed on assessment. Pt noted slightly confused when asking her questions, follows commands appropriately. Pt has TV on and call lora at pt side, pt voices no concerns at this time. Encouraged to call if needed.
[2021-06-11 20:36] VITALS: PULSE 95
[2021-06-11 20:48] LABS: Glucose Point of Care 169 mg/dl (65-105)
[2021-06-12 00:10] VITALS: BP 150/73; PULSE 90; RESP 18; TEMP 36.3; O2SAT 98
--- NOTE | 2021-06-12 02:02 | PC.NURSE ---
Pt sleeping, resting comfortably, RR even and nonlabored, call lora at pt side.
[2021-06-12 07:47] LABS: Glucose Point of Care 153 mg/dl (65-105)
[2021-06-12 08:00] VITALS: BP 148/72; PULSE 88; RESP 20; TEMP 36.6; O2SAT 97
[2021-06-12] MEDS: CHOLECALCIFEROL 1,000 UNITS TABLET 2000 UNITS PO (09:25)
[2021-06-12] MEDS: MAGNESIUM OXIDE 400 MG TABLET PO (09:26)
[2021-06-12] MEDS: INSULIN GLARGINE (*BKC) 100 UNITS/ML 35 UNITS SUB-Q (09:26)
[2021-06-12] MEDS: DOCUSATE SODIUM 100 MG CAPSULE PO (09:26)
[2021-06-12] MEDS: MEGESTROL ACETATE (*CHEMO) 20 MG TABLET PO ×2 (09:26→11:49)
[2021-06-12] MEDS: lisinopriL 20 MG TABLET PO (09:26)
[2021-06-12 09:27] VITALS: PULSE 84
[2021-06-12] MEDS: METOPROLOL TARTRATE 6.25 MG TABLET PO (09:27)
[2021-06-12] MEDS: ASPIRIN 325 MG ENTERIC TABLET PO (09:41)
--- NOTE | 2021-06-12 10:11 | PM.DS ---
DS: Admitting Diagnosis Discharge Date 06/12/2021 Admitting Diagnosis Weakness debility DS: Discharge Diagnosis Discharge Diagnosis (1) Weakness: Code(s): R53.1 - Weakness Status: Acute Assessment and Plan: ? Exhibit tolerance during physical activity as evidenced by a normal fluctuation of vital signs during physical activity. ? Patient will be ability to perform required activities of daily living. ? Provide appropriate nutrition for healing and strength. ? Use appropriate to prevent falls. ? Continue physical therapy/occupational therapy. 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 Rapid at [place] found to be covid positive COVID negative on date of DC 05/21/21 06/08/2021 resolved (4) Pneumonia due to COVID-19 virus: Code(s): U07.1 - COVID-19; J12.82 - Pneumonia due to coronavirus disease 2019 Status: Acute Assessment and Plan: CT of the abdomen chest and pelvis indicates COVID pneumonia Patient asymptomatic No treatment needed 06/08/2021 Off isolation (5) Hypertension: Code(s): I10 - Essential (primary) hypertension Status: Acute Assessment and Plan: Stable Continue lisinopril 20 mg daily Vital signs as ordered Will adjust medication as needed 06/08/2021 125-170 systolic , 60-80 diastolic, HR 90 - < 110, Stable No changes to medications at this time Discharge Continue home meds DS: Summary Hospital Course Hospital Course: Patient is a 75-year-old female with a past medical history of hypertension, diabetes, hyperlipidemia, chronic kidney disease, and most recent right hip repair. Patient was at [facility] for rehab and was sent to the ED due to positive COVID swab at facility. Patient was admitted to the hospital for further observation. Patient has not needed any oxygen or any intervention for COVID . Patient did have some bouts of nausea vomiting diarrhea, a CT was completed which indicated colitis she was given Cipro and Flagyl for treatment. Patient denies chest pain, shortness of breath, weakness, fatigue, nausea, vomiting, diarrhea, constipation, sweats, fevers, or chills . Patient admitted in swing bed for rehabilitation due to decreased balance decreased mobility in severe limited function endurant and/or mobility. Patient with discharge today for [facility]. Time Spent with Patient Time attestation: Total time spent providing and/or coordinating discharge services: Exam Narrative: GENERAL: This is a well-nourished, well-developed patient, in no apparent distress. HEAD: normocephalic, atraumatic. EYES: PERRL. Sclera clear/white. Vision is grossly intact. EARS: External ears normal, auditory canals clear and without drainage, TMs normal without perforation. Hearing grossly intact. NOSE: External nose normal with no obvious nasal discharge, nares without redness, no rhinorrhea. THROAT: Mucous membranes moist, posterior pharynx clear. NECK: Neck supple, non-tender without lymphadenopathy, masses or thyromegaly. CARDIOVASCULAR: Regular rate and rhythm without murmurs, gallops, or rubs. RESPIRATORY: Clear to auscultation. Breath sounds equal
[2021-06-12 11:14] LABS: Hematocrit 31.3 % (35.0-42.0); Hemoglobin 10.4 g/dL (11.7-13.8); Mean Corpuscular HGB Conc 33.2 g/dL (32.0-36.0); Mean Corpuscular Hemoglobin 29.6 pg (27.0-31.0); Mean Corpuscular Volume 89.2 fL (78.0-102.0); Mean Platelet Volume 8.7 fl (9.2-11.8); Platelet Count Result 422 K/mm3 (150-420); Red Blood Count 3.51 M/mm3 (4.20-5.40); Red Cell Distribution Width 14.2 % (11.6-14.4); White Blood Count 7.9 K/mm3 (4.8-10.8)
[2021-06-12 11:22] LABS: Anion Gap 7 mmol/L (8-16); Blood Urea Nitrogen 25 mg/dL (7-18); Calcium 8.7 mg/dL (8.5-10.1); Carbon Dioxide 31 mmol/L (21-32); Chloride 102 mmol/L (98-108); Estimated CRCL calculation 30 ml/min; Estimated Glomerular Filt Rate 48; Glucose 193 mg/dL (70-99); Osmolality Calculated 299 mOsm/kg (285-295); Potassium 3.9 mmol/L (3.5-5.1); Sodium 140 mmol/L (136-145)
--- NOTE | 2021-06-12 11:42 | STIPEVAL ---
Thank you for referring Amy Dhaliwal to [facility].? This is an evaluation only due to patient being discharged to a retirement facility soon. Please review, sign, date and return this REGINA. I agree with and certify that the following plan of care is medically necessary. Referring Physician Date Admitting Provider: Shaq Garcia MD Attending Provider: Shaq Garcia MD Referring Provider: EMMIE Inpatient Evaluation Start: 06/12/21 11:15 Freq: Status: Active Protocol: Document 06/12/21 10:40 MJB (Rec: 06/12/21 11:41 KALANI [id number]) Therapy Assessment Status Assessment Status Assessment Status Evaluation Pain Assessment Timing of Pain Assessment Timing of Pain Assessment Assessment Self Report Self Report Pain Level 0 Pain Score Pain Score 0: Self Report Additional Pain Score Comments Patient complained of pain from sitting on her bottom during the session. Language Evaluation Auditory Comprehension Simple Yes/No Questions (% Accuracy (0- 60 100)) Moderate Yes/No Questions (% Accuracy (0 40 -100)) Auditory Comprehension One-Step 100 Directives (% Accuracy (0-100)) Auditory Comprehension of Two-Step 25 Directives (% Accuracy (0-100)) Overall Auditory Comprehension Ability Moderate Deficits Cognitive Assessment Cognitive Assessment Level of Consciousness Alert Orientation Oriented to Person Ability to Follow Directions Follows Single Step Memory Description Recent Recall Impaired Additional Cognition Comments MMSE score: 06/10 moderate- severe cognitive impairment. Mini Mental Status Exam (MMSE) (5 point max) What is the Year? Season? 2 Date? Day? Month? (5 point max) Where are we now? State? 0 County? Town/City? Hospital? Floor? The examiner repeats them until patient 3 learns all of them, if possible. (5 point max) I would like you to count 0 backward from 100 by sevens. (93,86,79, 72,65,...) Alternative: Spell WORLD backwards (D-L-R-O-W) (3 point max) Earlier I told you the 0 names of three things. Can you tell me what those were ? (2 point max) Show the patient two 2 simple objects, such as a wristwatch and a pencil, and ask the patient to name them. (1 point max) Repeat the phrase: No ifs 1 , ands, or buts. (3 point max) Take the paper in your 2 right hand, fold it in half, and put it on the floor. (The examiner gives the patient a piece of blank paper.) (1 point max) Please read this and do 1 what it says. (Written instuctions is Close your eyes.) (1 point max) Make up and write a 0 sentence about anything. (This sentence m
--- NOTE | 2021-06-12 11:44 | PCSTNOTE ---
Patient was referred for a speech therapy evaluation to administer the Mini Mental examination to assess cognitive status. Testing was completed and patient will not be seen for ST treatment at this facility due to being discharged soon to a shelter facility. No POC has been completed due to patient's plan to be discharged soon.
[2021-06-12 11:54] LABS: Glucose Point of Care 165 mg/dl (65-105)
--- NOTE | 2021-06-12 14:59 | PC.NURSE ---
Addendum entered by Yolanda Lomax RN 06/12/21 16:22: 1325 report was called to [facility] and given to chata. [facility] called and will transfer when rig available. Original Note: [id number] patient was found on floor lying on l side.. claims she was ready to leave. and the next time asked she is not sure how it happened. able to move all exterm. kicks legs with encourage. bears wt to left leg. back in bed. kerri cesar checked out pt. 1500 aware of found patient on floor with no injuries.
[2021-06-12 15:03] VITALS: BP 136/84; PULSE 88; RESP 20; O2SAT 96
[2021-06-12 17:17] LABS: Glucose Point of Care 187 mg/dl (65-105)
--- NOTE | 2021-06-12 17:28 | PC.NURSE ---
Patient's , Cuco Dhaliwal, notified of patient's transfer via [facility] to [place], [place].
--- NOTE | 2021-06-12 17:35 | PC.NURSE ---
[facility] here and care turned over. update called [facility] .
[2021-06-13 11:14] LABS: Glucose Point of Care 127 mg/dl (65-105)
[2021-06-13 11:14] LABS: Glucose Point of Care 295 mg/dl (65-105)
[2021-06-13 11:14] LABS: Glucose Point of Care 292 mg/dl (65-105)
[2021-06-13 11:14] LABS: Glucose Point of Care 182 mg/dl (65-105)
--- NOTE | 2021-06-16 13:39 | PC.NURSE ---
[facility] states they received and understood the discharge instructions.
== END 2021-06-12 17:30 | DRG 559 ==
PROVIDERS: Nurse Practitioner; Nurse Practitioner Family; Admitting Provider Emergency Medicine; PCP Family Medicine; Visit Provider Emergency Medicine
DX: S72.141D Displaced intertrochanteric fracture of right femur, subsequent encounter for closed fracture with routine healing (principal); U07.1 COVID-19; J12.82 Pneumonia due to coronavirus disease 2019; R53.1 Weakness; E11.319 Type 2 diabetes mellitus with unspecified diabetic retinopathy without macular edema; E11.42 Type 2 diabetes mellitus with diabetic polyneuropathy; E11.22 Type 2 diabetes mellitus with diabetic chronic kidney disease; E78.00 Pure hypercholesterolemia, unspecified; E55.9 Vitamin D deficiency, unspecified; I12.9 Hypertensive chronic kidney disease with stage 1 through stage 4 chronic kidney disease, or unspecified chronic kidney disease; K52.9 Noninfective gastroenteritis and colitis, unspecified; M19.90 Unspecified osteoarthritis, unspecified site; N18.9 Chronic kidney disease, unspecified; W19.XXXA Unspecified fall, initial encounter; Z79.4 Long term (current) use of insulin
CPT/HCPCS: 36415; 80048; 80053; 82948; 83735; 85025; 85027; 96125; 97110; 97161; 97165; 97530; 97535; A9270; J1815; J2550

== ENCOUNTER 2021-06-16 16:14 | Emergency (ER) | payer MEDICARE, SELFPAY ==
[2021-06-16] VITALS (9 sets, daily range): BP systolic 104–152; BP diastolic 54–72; PULSE 91–110; RESP 10–22; TEMP 36.3; O2SAT 97–99
--- NOTE | ~2021-06-16 | CT_ITS ---
EXAMINATION: CT brain wo con EXAM DATE: 06/16/2021 16:54 INDICATION: Altered mental status. Confusion. TECHNIQUE: Spiral CT of the head was performed without contrast. Axial, coronal and sagittal images were reviewed. The dose-length product (DLP) for this examination was 605.33 mGy-cm. The exposure w as tailored according to patient size, and iterative reconstruction (ASIR) was used as additional dos e reduction technique. There is no prior study for comparison. 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 There is no acute intraparenchymal hemorrhage. No ev idence of intraparenchymal brain mass lesion. No evidence of acute infarction. Please note that ini tial head CT has limited sensitivity for small or acute infarctions. There is mild periventricular an d subcortical hypodensity, nonspecific but probably related to small vessel ischemic disease. There is moderate prominence of the sulci and ventricles related to cerebral atrophy. There is intracran ial carotid arteriosclerosis. There are no extra-axial collections. There is no mass effect or midl ine shift. Patient has had bilateral ocular lens surgery. Soft tissue is unremarkable. The visuali zed sinuses and mastoid air cells are well aerated. IMPRESSION: 1. No acute intracranial findings. 2. Chronic age related findings. 3. 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 Reviewed, dictated and finalized at location A. L SERVICE CLERK
--- NOTE | ~2021-06-16 | XR_ITS ---
EXAMINATION: XR chest 2V DATE: 06/16/2021 16:41 INDICATION: Weakness and confusion TECHNIQUE: AP and lateral views of the chest are obtained. COMPARISON: 05/28/2021 FINDINGS: There are patchy opacities of the lower lung zones, left greater than right. No pleural eff usion or pneumothorax is identified. The cardiomediastinal silhouette is normal. Cholecystectomy clip s are noted in the right upper quadrant. IMPRESSION: 1. Bibasilar airspace opacities, consistent with atelectasis versus pneumonia. Reviewed, dictated and finalized at location A. AND CUTTER HAND
--- NOTE | 2021-06-16 16:22 | ECG_ITS ---
Measurements Intervals [place] Rate: 96 P: 50 UT: 152 QRS: 17 QRSD: 77 T: 48 QT: 348 QTc: 440 Interpretive Statements SINUS RHYTHM CANNOT RULE OUT SEPTAL INFARCT, AGE INDETERMINATE BASELINE ARTIFACT- II, AVR, AVL, AVF ABNORMAL ECG Electronically Signed On 06-16-2021 16:38:15 MOLDER PIPE COVERING by Thong Giordano D.O.
[2021-06-16 17:11] LABS: Basophils Absolute Auto 0.1 K/mm3 (0.0-0.1); Basophils Percent Auto 0.8 % (0.2-1.2); Eosinophils Absolute Auto 0.1 K/mm3 (0-0.3); Eosinophils Percent Auto 0.9 % (0-4.4); Hematocrit 31.8 % (37.0-47.0); Hemoglobin 10.7 g/dL (12.0-15.0); Immature Granulocyte Absolute 0.03 K/mm3 (0.00-0.031); Immature Granulocyte Percent A 0.4 % (0-0.5); Lymphocytes Absolute Auto 2.05 K/mm3 (0.9-3.2); Mean Corpuscular HGB Conc 33.6 g/dl (32-36); Mean Corpuscular Hemoglobin 30.5 pg (26-34); Mean Corpuscular Volume 90.6 fl (80-100); Monocytes Absolute Auto 0.6 K/mm3 (0.1-0.6); Monocytes Percent Auto 7.9 % (2.6-8.5); Neutrophils Absolute Auto 4.8 K/mm3 (1.3-6.7); Platelet Count Result 340 k/mm3 (150-375); Red Blood Count 3.51 M/mm3 (4.2-5.4); Red Cell Distribution Width 14.6 % (11.5-14.5); White Blood Count 7.6 K/mm3 (4.5-10.0)
[2021-06-16 17:20] LABS: Alanine Aminotransferase 11 U/L (4-35); Albumin Level 3.6 g/dL (3.5-5.1); Alkaline Phosphatase 74 U/L (38-126); Anion Gap 4 mmol/L (8-16); Aspartate Amino Transferase 21 U/L (14-36); Bilirubin,Total 0.6 mg/dL (0.2-1.3); Blood Urea Nitrogen 41 mg/dL (7-17); Calcium 9.3 mg/dL (8.4-10.2); Carbon Dioxide 32 mmol/L (22-30); Chloride 98 mmol/L (98-107); Estimated CRCL calculation 25 ml/min; Estimated Glomerular Filt Rate 29; Glucose 164 mg/dL (65-110); Potassium 4.5 mmol/L (3.4-5.0); Sodium 134 mmol/L (137-145)
[2021-06-16 17:26] LABS: Prothrombin Time 13.4 Seconds (11.1-14.7)
[2021-06-16 18:03] LABS: NT Pro B Type Natriuretic Pept 126 pg/mL (5-100)
[2021-06-16 18:17] LABS: Lactic Acid Reflex 1.2 mmol/L (0.7-2.1)
[2021-06-16] MEDS: SODIUM CHLORIDE 0.9% IV 1,000 ML 150 ML IV CONT (18:40)
[2021-06-16 19:51] LABS: Add Urine Microscopic? NO; Appearance Urine Clear (Clear); Bilirubin Urine Negative (Negative); Blood Urine Negative (Negative); Color Urine Yellow (Yellow); Glucose Urine UA Negative (Negative); Ketones Urine Negative (Negative); Leukocyte Esterase Ur Negative LEU/UL (Negative); Mucus Urine Rare /lpf; Nitrate Urine Negative (Negative); Protein Urine Negative (Negative); RBC Urine 0-2 /hpf (0-2); Specific Grav Ur 1.016 (1.001-1.035); Urobilinogen Urine Negative mg/dL (<2.0); WBC Urine 0-3 /hpf
--- NOTE | 2021-06-16 20:56 | ED.GENADULT ---
HPI - General Adult General Chief complaint: Weakness Stated complaint: AMS Time Seen by Provider: 06/16/21 16:33 Source: patient and family Mode of arrival: EMS Limitations: no limitations History of Present Illness HPI narrative: 75[facility] with a history of hypertension, diabetes [facility] with altered mental status. As per the patient was wide awake and alert yesterday and since this afternoon she has been quite lethargic. Patient upon arrival to the ER is wide awake alert answers all the questions. She denied any chest pain headache, shortness of breath Onset (ago): day(s) (1) Associated symptoms: denies other symptoms Related Data Home Medications Medication Instructions Recorded Confirmed cholecalciferol (vitamin D3) 50 mcg PO DAILY 05/15/21 06/01/21 [Vitamin D3] insulin glargine 35 unit SUBCUT QAM 06/01/21 06/01/21 Allergies Allergy/AdvReac Type Severity Reaction Status Date / Time No Known Allergies Allergy Verified 05/15/21 09:01 Review of Systems Review of Systems: All systems reviewed & are unremarkable except as noted in HPI and below Constitutional: Constitutional: Reports no additional constitutional complaints Eyes: Eyes: Reports no additional eye complaints ENT: Reports system reviewed and no additional complaints, except as documented Cardiovascular: Cardiovascular: Reports no additional cardiovascular complaints Respiratory: Respiratory: Reports no additional respiratory complaints Gastrointestinal: Gastrointestinal: Reports no additional gastrointestinal complaints Musculoskeletal: Musculoskeletal: Reports no additional musculoskeletal complaints Integumentary/Breasts: Skin/Breast: Reports system reviewed and no additional complaints, except as docu Neurologic: Reports system reviewed and no additional complaints, except as documented PMFSH Past Medical History Medical History Basal cell carcinoma Closed intertrochanteric fracture of right hip (05/15/21) History of blood transfusion (05/2021) Acute blood loss anemia postoperatively. Hypertension Primary osteoarthritis involving multiple joints Pure hypercholesterolemia Type 2 diabetes mellitus, with long-term current use of insulin Complicated by diabetic retinopathy and neuropathy. Hemoglobin A1c was 7.5% on 05/15/2021. Vitamin D deficiency Surgical History Surgical History History of basal cell carcinoma excision History of section, low transverse History of laparoscopic cholecystectomy History of open reduction and internal fixation (ORIF) procedure (05/16/21) Gamma nail fixation of right hip fracture. History of surgical procedure on eye proper using laser Laser eye surgery for diabetic retinopathy. Family History Family History Father Family history of diabetes mellitus in first degree relative Family history of heart disease in male family member before age 55 Family history of congestive heart failure Mother Family history of malignant neoplasm of uterus Family history of malignant neoplasm of ovary Family history of malignant neoplasm Sibling Family history of malignant neoplasm Father Family history of type 2 diabetes mellitus Father Family history of type 2 diabetes mellitus Other Diabetes mellitus Hypertension Social History Social History Social History: Surrogate decision maker: Cuco Dhaliwal, . Code status: Full code. Smoking status: Never smoker Second hand tobacco smoke exposure: No Alcohol intake: unknown Substance use: unknown Substance use type: does not use Additional living arrangements comments: The patient lives in [place] with her . 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 They have a son and
== END 2021-06-16 22:00 ==
PROVIDERS: Emergency Provider Family Medicine; PCP Family Medicine
DX: R41.82 Altered mental status, unspecified (principal); I10 Essential (primary) hypertension; M19.90 Unspecified osteoarthritis, unspecified site; E78.00 Pure hypercholesterolemia, unspecified; E11.319 Type 2 diabetes mellitus with unspecified diabetic retinopathy without macular edema; E11.40 Type 2 diabetes mellitus with diabetic neuropathy, unspecified; E55.9 Vitamin D deficiency, unspecified; Z85.828 Personal history of other malignant neoplasm of skin; Z79.4 Long term (current) use of insulin; R91.8 Other nonspecific abnormal finding of lung field; R94.31 Abnormal electrocardiogram [ECG] [EKG]
CPT/HCPCS: 36415; 51701; 70450; 71046; 80053; 81003; 83605; 83880; 85025; 85610; 93005; 96360; 99284; J7030

== ENCOUNTER 2021-07-20 03:46 | Inpatient (IN) | payer MEDICARE, SELFPAY ==
[2021-07-20] VITALS (9 sets, daily range): BP systolic 105–143; BP diastolic 60–84; PULSE 69–122; RESP 20–32; TEMP 36.4–36.7; O2SAT 86–100
--- NOTE | ~2021-07-20 | CT_ITS ---
EXAMINATION: CT brain wo con DATE: 07/23/2021 10:00 INDICATION: Confusion. TECHNIQUE: Computed tomography (CT) of the head was performed without intravenous contrast. The mA wa s adjusted according to patient size. Iterative reconstruction technique was employed. The dose-lengt h product was 605.33 mGy-cm. COMPARISON: Head CT 06/16/2021, brain MRI 05/30/2021 FINDINGS: There is a small old infarct in left cerebellum. There is low attenuation involving the rig ht temporal lobe and right insula, consistent with infarct. There is no intracranial hemorrhage or ab normal mass lesion. The ventricles are normal in size. There are likely changes of ocular lens replac ement surgeries. The mastoid air cells are normal. There is mild mucosal thickening in the paranasal sinuses with dependent fluid in sphenoid sinus. IMPRESSION: 1. Acute versus subacute infarct involving the right temporal lobe and right insula. 2. Small old infarct in left cerebellum. Reviewed, dictated and finalized at location B. DESIGN LEAD IMPRESSION: 1. Acute versus subacute infarct involving the right temporal lobe and right in sula. 2. Small old infarct in left cerebellum.
--- NOTE | ~2021-07-20 | CT_ITS ---
EXAMINATION: CT abdomen pelvis w con DATE: 07/20/2021 05:21 INDICATION: Coffee-ground emesis. TECHNIQUE: Computed tomography (CT) of the abdomen and pelvis was performed with 100 cc Omnipaque 350 intravenous contrast. The dose-length product was 245.38 mGy-cm. Automated exposure control and iter ative reconstruction technique were employed. COMPARISON: CT dated 05/31/2021. FINDINGS: Improved patchy groundglass opacities of the lower lungs, likely resolving pneumonia. No si gnificant pleural or pericardial effusion. Heart size normal. There is NG tube present. There is thic kening of the gastric antrum/pylorus. There are cholecystectomy clips. Small subcentimeter hypodensit y of the left hepatic lobe, most likely benign. The spleen, pancreas, adrenal glands and right kidney are unremarkable. There are several low-density lesions in the left kidney, too small to characteriz e, although likely cysts. There is mild diffuse thickening of the colon and rectum, suspicious for co litis. There is a partially calcified endometrial mass which may represent a fibroid, polyp or carcin hernandez. Consider correlation with ultrasound. There are surgical changes of internal fixation of right f emoral intertrochanteric fracture with dynamic compression screw and intramedullary laney. Mild lumbar spondylosis. IMPRESSION: 1. Mild diffuse thickening of the colon and rectum, suspicious for colitis which may be infectious or inflammatory. 2: Mild thickening of the gastric antrum/pylorus. Cannot exclude gastritis. 3: Improving patchy groundglass opacities of the lower lungs, consistent with resolving pneumonia. 4: Partially calcified endometrial mass.. Thickened endomtrial complex. The differential diagnosis includes endometrial hyperplasia, polyp and carcinoma. Biopsy is recommended. Reviewed, dictated and finalized at location A. EGE HIRE IMPRESSION: 1. Mild diffuse thickening of the colon and rectum, suspicious for colitis whic h may be infectious or inflammatory. 2: Mild thickening of the gastric antrum/pylorus. Cannot exclude gastritis. 3: Improving patchy groundglass opacities of the lower lungs, consistent with resolving pneumonia. 4: Partially calcified endometrial mass.. Thickened endomtrial complex. The d ifferential diagnosis includes endometrial hyperplasia, polyp and carcinoma. Biopsy is recommended.
--- NOTE | ~2021-07-20 | XR_ITS ---
XR abdomen NG/feed tube insert INDICATION: Evaluate NG tube position. TECHNIQUE: Limited KUB perform for evaluating NG tube . COMPARISON: No prior studies for comparison. FINDINGS: NG tube tip in the stomach. Visualized bowel gas pattern is nonspecific.There are cholecys tectomy clips. There are splenic arterial calcifications. Lung bases unremarkable. IMPRESSION: 1: NG tube tip in the stomach. Reviewed, dictated and finalized at location A. EW TRAINER
--- NOTE | ~2021-07-20 | XR_ITS ---
EXAMINATION: XR chest 1V portable DATE: 07/23/2021 11:03 INDICATION: Dyspnea. TECHNIQUE: A single frontal view of the chest was obtained. COMPARISON: Chest single view 07/20/2021, CT abdomen and pelvis 07/20/2021 FINDINGS: There is mild scarring at right lung apex. There are mild airspace opacities in the mid and lower lung zones. A calcified left lung nodule and calcified left hilar lymph nodes are consistent w ith old granulomatous disease. No pleural effusion or pneumothorax. The heart size is normal. Surgica l clips in the right upper quadrant are likely from cholecystectomy. IMPRESSION: 1. Mild airspace opacities in the mid and lower lung zones, consistent with pneumonia. Reviewed, dictated and finalized at location B. SCIENCE PROFESSOR IMPRESSION: 1. Mild airspace opacities in the mid and lower lung zones, consistent with pne umonia.
--- NOTE | ~2021-07-20 | XR_ITS ---
XR chest 1V portable 07/20/2021 04:31 Indication: Cough Procedure: AP portable chest Comparison: 06/16/2021 Findings: NG tube tip in the stomach. Heart size normal. Left basilar airspace disease is unchanged. No significant effusion. No pneumothorax. No acute osseous abnormality. Impression: 1: Persistent left basilar airspace disease, suspicious for pneumonia. Reviewed, dictated and finalized at location A. JOINER Impression: 1: Persistent left basilar airspace disease, suspicious for pneumonia.
--- NOTE | 2021-07-20 03:54 | ECG_ITS ---
Measurements Intervals [place] Rate: 123 P: 81 NE: 158 QRS: 69 QRSD: 71 T: 56 QT: 304 QTc: 436 Interpretive Statements SINUS TACHYCARDIA BASELINE ARTIFACT- I, AVR, AVL, AVF, V1-V6 ABNORMAL ECG Electronically Signed On 07-20-2021 6:16:02 RN VISITING by Thong iGordano D.O.
[2021-07-20] MEDS: SODIUM CHLORIDE 0.9% IV 1,000 ML 999 ML IV CONT (04:24)
[2021-07-20 04:39] LABS: Basophils Absolute Auto 0.1 K/mm3 (0.0-0.1); Basophils Percent Auto 0.7 % (0.2-1.2); Eosinophils Percent Auto 0.2 % (0-4.4); Hematocrit 35.5 % (37.0-47.0); Hemoglobin 11.8 g/dL (12.0-15.0); Immature Granulocyte Absolute 0.03 K/mm3 (0.00-0.031); Immature Granulocyte Percent A 0.2 % (0-0.5); Lymphocytes Absolute Auto 1.52 K/mm3 (0.9-3.2); Lymphocytes Percent Auto 12.6 % (18.3-44.2); Mean Corpuscular HGB Conc 33.2 g/dl (32-36); Mean Corpuscular Hemoglobin 30.9 pg (26-34); Mean Corpuscular Volume 92.9 fl (80-100); Mean Platelet Volume 9.1 fl (7.4-10.4); Monocytes Absolute Auto 0.5 K/mm3 (0.1-0.6); Monocytes Percent Auto 3.9 % (2.6-8.5); Neutrophils Absolute Auto 9.9 K/mm3 (1.3-6.7); Neutrophils Percent Auto 82.4 % (45.5-73.1); Platelet Count Result 238 k/mm3 (150-375); Red Blood Count 3.82 M/mm3 (4.2-5.4); Red Cell Distribution Width 14.2 % (11.5-14.5)
[2021-07-20 04:49] LABS: INR 1.1; Prothrombin Time 14.3 Seconds (11.1-14.7)
[2021-07-20 04:50] LABS: Partial Thromboplastin Time 27.5 SECONDS (22.3-36.8)
[2021-07-20 04:54] LABS: Alanine Aminotransferase 14 U/L (4-35); Albumin Level 3.6 g/dL (3.5-5.1); Alkaline Phosphatase 86 U/L (38-126); Anion Gap 11 mmol/L (8-16); Aspartate Amino Transferase 26 U/L (14-36); Bilirubin,Total 1.6 mg/dL (0.2-1.3); Blood Urea Nitrogen 32 mg/dL (7-17); Calcium 8.9 mg/dL (8.4-10.2); Carbon Dioxide 29 mmol/L (22-30); Chloride 98 mmol/L (98-107); Estimated CRCL calculation 28 ml/min; Estimated Glomerular Filt Rate 44; Glucose 233 mg/dL (65-110); Lipase 32 U/L (23-300); Potassium 4.5 mmol/L (3.4-5.0); Sodium 138 mmol/L (137-145)
[2021-07-20 04:55] LABS: Lactic Acid Reflex 1.8 mmol/L (0.7-2.1)
[2021-07-20 04:55] LABS: Add Urine Microscopic? YES; Appearance Urine Clear (Clear); Bilirubin Urine Negative (Negative); Blood Urine 1+ (Negative); Color Urine Yellow (Yellow); Glucose Urine UA Negative (Negative); Ketones Urine Negative (Negative); Leukocyte Esterase Ur Trace LEU/UL (Negative); Nitrate Urine Negative (Negative); Protein Urine Negative (Negative); Specific Grav Ur 1.014 (1.001-1.035); Urobilinogen Urine Negative mg/dL (<2.0); WBC Urine 31-50 /hpf
--- NOTE | 2021-07-20 05:09 | PC.NURSE ---
Pt to CT scan via stretcher at this time.
--- NOTE | 2021-07-20 05:58 | ED.GENADULT ---
HPI - General Adult General Chief complaint: Nausea/Vomiting/Diarrhea Stated complaint: COFFEE GROUND EMESIS X 4 (50ML EACH) Time Seen by Provider: 07/20/21 03:56 History of Present Illness HPI narrative: Patient 75-year-old female presents the emergency department with chief complaint of coffee-ground emesis. The patient is a resident of local skilled nursing and is ANO to self only. Patient tonight is had about 4 episodes of vomiting of coffee-ground type material about 50 mL each time. Patient has not had any other complaints history is limited due to altered mental status Related Data Home Medications Medication Instructions Recorded Confirmed cholecalciferol (vitamin D3) 50 mcg PO DAILY 05/15/21 06/01/21 [Vitamin D3] insulin glargine 35 unit SUBCUT QAM 06/01/21 06/01/21 Allergies Allergy/AdvReac Type Severity Reaction Status Date / Time No Known Allergies Allergy Verified 05/15/21 09:01 Review of Systems Review of Systems: A 10 system review of systems was completed on the patient and is negative except for what is stated in the HPI. Nursing and ancillary documentation was reviewed. [facility] Past Medical History Medical History Basal cell carcinoma Closed intertrochanteric fracture of right hip (05/15/21) History of blood transfusion (05/2021) Acute blood loss anemia postoperatively. Hypertension Primary osteoarthritis involving multiple joints Pure hypercholesterolemia Type 2 diabetes mellitus, with long-term current use of insulin Complicated by diabetic retinopathy and neuropathy. Hemoglobin A1c was 7.5% on 05/15/2021. Vitamin D deficiency Surgical History Surgical History History of basal cell carcinoma excision History of section, low transverse History of laparoscopic cholecystectomy History of open reduction and internal fixation (ORIF) procedure (05/16/21) Gamma nail fixation of right hip fracture. History of surgical procedure on eye proper using laser Laser eye surgery for diabetic retinopathy. Family History Family History Father Family history of diabetes mellitus in first degree relative Family history of heart disease in male family member before age 55 Family history of congestive heart failure Mother Family history of malignant neoplasm of uterus Family history of malignant neoplasm of ovary Family history of malignant neoplasm Sibling Family history of malignant neoplasm Father Family history of type 2 diabetes mellitus Father Family history of type 2 diabetes mellitus Other Diabetes mellitus Hypertension Social History Social History Social History: Surrogate decision maker: Cuco Dhaliwal, . Code status: Full code. Smoking status: Never smoker Second hand tobacco smoke exposure: No Alcohol intake: unknown Substance use: unknown Substance use type: does not use Additional living arrangements comments: The patient lives in [place] with her . 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 They have a son and a daughter. Additional occupation/education comments: Retired. Spiritual care concerns: No Exam Narrative: GENERAL: Well-appearing, well-nourished, and in no acute distress. HEAD: Normocephalic, atraumatic. EYES: PERRLA and EOMI. ENT: Nares clear, no rhinorrhea or epistaxis. Mucous membranes moist. NECK: Supple. CHEST: Clear to auscultation. No respiratory distress. HEART: Regular rate and rhythm. No murmur heard. Normal peripheral pulses. ABDOMEN: Soft, nontender, nondistended, normal active bowel sounds. EXTREMITIES: Normal range of motion. No edema. SKIN: Warm, dry, no rash. NEURO: No focal deficits. Alert to self. PSYCH: Normal mood and affect. Course Course Emergency
[2021-07-20] MEDS: PANTOPRAZOLE SODIUM IV 40 MG VIAL 80 MG IV PUSH (06:09)
[2021-07-20 08:01] LABS: Hematocrit 34.1 % (37.0-47.0); Hemoglobin 11.4 g/dL (12.0-15.0)
[2021-07-20] MEDS: SODIUM CHLORIDE 0.9% IV 1,000 ML 125 ML IV CONT (08:53)
--- NOTE | 2021-07-20 11:21 | ADMGEN ---
This patient, Amy Dhaliwal, was admitted to 2 Medical Room 261-01. Patient/family oriented to hospital policies and general routines including ID bracelet, bed and alarms, visiting hours, pain management, procedures, bathroom and other care routines, personal items, smoking policy, room service/diet, and visiting hours. Information on how to activate the Rapid Response Team has been discussed. Patient/Family are encouraged to report perceived risks to care and to ask questions if they do not understand what they are told or what they should do.
--- NOTE | 2021-07-20 11:41 | WPDGICN ---
Assessment and Plan Assessment and plan (1) Acute upper gastrointestinal bleeding: Code(s): K92.2 - Gastrointestinal hemorrhage, unspecified Status: Acute Assessment and Plan: ngt in place, on iv protonix will assess with egd tomorrow to check if esophagitis, ulcer, etc (2) Acute on chronic blood loss anemia: Code(s): D62 - Acute posthemorrhagic anemia Status: Acute Assessment and Plan: continue to monitor hb ~ 10 (3) Dementia: Code(s): F03.90 - Unspecified dementia without behavioral disturbance Status: Acute Assessment and Plan: confusion at baseline (4) Colitis: Code(s): K52.9 - Noninfective gastroenteritis and colitis, unspecified Status: Acute Assessment and Plan: treated medically based on previous records (5) Type 2 diabetes mellitus, with long-term current use of insulin: Code(s): E11.9 - Type 2 diabetes mellitus without complications; Z79.4 - terminal manager (current) use of insulin Status: Acute GI Consult Note Consult date/time: 07/20/21 11:41 Reason for consult: coffee ground emesis HPI: Amy Dhaliwal is a 75 year old female with past medical history of hypertension, diabetes, hyperlipidemia, chronic kidney disease, and most recent right hip repair few months ago (actually developed acute anemia after surgery and GI evaluation by Dr Siu- did not require endoscopies and probably related to surgery). She recently recovered from COVID pneumonia and also colitis for which had antibiotics, she also has dementia and unable to get any history, she is from [facility] and sent her with new onset of coffee ground emesis. CT scan reviewed showed mild diffuse thickening of the colon and rectum, suspicious for colitis, mild thickening of the gastric antrum/pylorus. Cannot exclude gastritis. She is awake but only oriented to self (baseline per records). Review of Systems Review of Systems: ROS unobtainable: Yes unobtainable due to mental status PMFSH Past Medical History Medical History (Updated 07/20/21 @ 11:47 by Levy Robles MD) Acute on chronic blood loss anemia Basal cell carcinoma Closed intertrochanteric fracture of right hip (05/15/21) Dementia History of blood transfusion (05/2021) Acute blood loss anemia postoperatively. Hypertension Primary osteoarthritis involving multiple joints Pure hypercholesterolemia Type 2 diabetes mellitus, with long-term current use of insulin Complicated by diabetic retinopathy and neuropathy. Hemoglobin A1c was 7.5% on 05/15/2021. Vitamin D deficiency Surgical History Surgical History History of basal cell carcinoma excision History of section, low transverse History of laparoscopic cholecystectomy History of open reduction and internal fixation (ORIF) procedure (05/16/21) Gamma nail fixation of right hip fracture. History of surgical procedure on eye proper using laser Laser eye surgery for diabetic retinopathy. Family History Family History Father Family history of diabetes mellitus in first degree relative Family history of heart disease in male family member before age 55 Family history of congestive heart failure Mother Family history of malignant neoplasm of uterus Family history of malignant neoplasm of ovary Family history of malignant neoplasm Sibling Family history of malignant neoplasm Father Family history of type 2 diabetes mellitus Father Family history of type 2 diabetes mellitus Other Diabetes mellitus Hypertension Social History Social History Social History: Surrogate decision maker: Cuco Dhaliwal, . Code status: Full code. Smoking status: Unknown if ever smoked Second hand tobacco smoke exposure: No Alcohol intake: unknown
--- NOTE | 2021-07-20 11:57 | PM.IMHP ---
H&P: HPI History of Present Illness Date/Time: 07/20/21 11:57 this is a 74-year-old female who presented to emergency department with complaints of coffee-ground emesis. Patient has a past medical history right hip fracture, basal cell carcinoma, hypertension, osteoarthritis, hypercholesterolemia, type 2 diabetes, vitamin-D deficiency and acute blood loss anemia. Patient is well known to [facility]. Patient has a history of being confused today she is at baseline. She is a poor historian all information obtained through medical records. According to medical records patient had 4 episodes coffee-ground emesis in the ED. vital signs 43/73, 24, 100% room air, 121 wbc's 12.0, hemoglobin 11.4, hematocrit 34.1, platelets 238, sodium 138, potassium 4.5, BUN 32, creatinine 1.20, lactic acid 1.8, liver function test within normal limits except T bili which is 1.6 BNP 126, urine positive for leukocytes RBC, abdominal x-ray unremarkable, CT of the abdomen indicate possible colitis and/or gastritis resolving and thickening endometrial, chest x-ray indicated possible pneumonia EKG sinus tach with heart rate of 123. As clarification, on Date patient should be admitted for hospital observation services under my care. Chief Complaint: Coffee-ground emesis Review of Systems Review of Systems: ROS unobtainable: Yes unobtainable due to endotracheal tube and unobtainable due to medical condition [facility] Past Medical History Medical History (Updated 07/20/21 @ 15:32 by JD Rutledge-C) Acute on chronic blood loss anemia Basal cell carcinoma Closed intertrochanteric fracture of right hip (05/15/21) Dementia History of blood transfusion (05/2021) Acute blood loss anemia postoperatively. Hypertension Primary osteoarthritis involving multiple joints Pure hypercholesterolemia Type 2 diabetes mellitus, with long-term current use of insulin Complicated by diabetic retinopathy and neuropathy. Hemoglobin A1c was 7.5% on 05/15/2021. Vitamin D deficiency Surgical History Surgical History History of basal cell carcinoma excision History of section, low transverse History of laparoscopic cholecystectomy History of open reduction and internal fixation (ORIF) procedure (05/16/21) Gamma nail fixation of right hip fracture. History of surgical procedure on eye proper using laser Laser eye surgery for diabetic retinopathy. Family History Family History Father Family history of diabetes mellitus in first degree relative Family history of heart disease in male family member before age 55 Family history of congestive heart failure Mother Family history of malignant neoplasm of uterus Family history of malignant neoplasm of ovary Family history of malignant neoplasm Sibling Family history of malignant neoplasm Father Family history of type 2 diabetes mellitus Father Family history of type 2 diabetes mellitus Other Diabetes mellitus Hypertension Social History Social History Social History: Surrogate decision maker: Cuco Dhaliwal, . Code status: Full code. Smoking status: Unknown if ever smoked Second hand tobacco smoke exposure: No Alcohol intake: unknown Substance use: unknown Substance use type: does not use Additional living arrangements comments: The patient lives in [place] with her . 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 They have a son and a daughter. Additional occupation/education comments: Retired. Spiritual care concerns: No Meds Home Medications and Allergies Home Medications Medication Instructions Recorded Confirmed Type aspirin 325 mg PO DAILY #30 cap 05/21/21 07/20/21 Rx docusate sodium 100 mg PO BID #30 cap 05/21/21 07/20/21 Rx insulin glargine 15 unit SUBCUT HS 05/13
[2021-07-20] MEDS: DEXTROSE 5%/0.9% SOD CHL 1,000 ML 100 ML IV CONT ×2 (12:14→21:50)
[2021-07-20 12:43] LABS: Hematocrit 32.5 % (37.0-47.0); Hemoglobin 10.8 g/dL (12.0-15.0)
[2021-07-20 18:25] LABS: Hematocrit 30.5 % (37.0-47.0); Hemoglobin 10.1 g/dL (12.0-15.0)
[2021-07-21] VITALS (13 sets, daily range): BP systolic 73–152; BP diastolic 33–88; PULSE 81–120; RESP 18–32; TEMP 36.2–37.3; O2SAT 99–100
[2021-07-21 06:23] LABS: Hematocrit 30.3 % (37.0-47.0); Hemoglobin 10.3 g/dL (12.0-15.0); Mean Corpuscular Hemoglobin 30.2 pg (26-34); Mean Corpuscular Volume 88.9 fl (80-100); Platelet Count Result 200 k/mm3 (150-375); Red Blood Count 3.41 M/mm3 (4.2-5.4); Red Cell Distribution Width 13.7 % (11.5-14.5); White Blood Count 9.3 K/mm3 (4.5-10.0)
[2021-07-21 06:46] LABS: Alanine Aminotransferase 13 U/L (4-35); Albumin Level 3.3 g/dL (3.5-5.1); Alkaline Phosphatase 80 U/L (38-126); Anion Gap 8 mmol/L (8-16); Aspartate Amino Transferase 22 U/L (14-36); Bilirubin,Total 0.7 mg/dL (0.2-1.3); Blood Urea Nitrogen 21 mg/dL (7-17); Calcium 8.1 mg/dL (8.4-10.2); Carbon Dioxide 29 mmol/L (22-30); Chloride 101 mmol/L (98-107); Estimated CRCL calculation 33 ml/min; Estimated Glomerular Filt Rate 54; Glucose 357 mg/dL (65-110); Magnesium 1.5 mg/dL (1.6-2.3); Potassium 3.6 mmol/L (3.4-5.0); Sodium 138 mmol/L (137-145)
[2021-07-21] MEDS: DEXTROSE 5%/0.9% SOD CHL 1,000 ML 100 ML IV CONT (09:55)
[2021-07-21] MEDS: SODIUM CHLORIDE 0.9% IV 1,000 ML 100 ML IV CONT ×2 (10:38→23:54)
[2021-07-21 11:46] LABS: Glucose Point of Care 295 mg/dl (65-105)
[2021-07-21] MEDS: LACTATED RINGERS 1,000 ML 150 ML IV CONT (12:28)
--- NOTE | 2021-07-21 12:50 | WPDANESEPPF ---
Anes - Initial Pre Proc Eval Procedure: Operation Date: 07/21/21 13:30 Proposed Procedures p Esophagogastroduodenoscopy - Levy Robles MD Date/Time: 07/21/21 12:50 Surgeon: James Segal MD Pre Op Diagnosis: GI bleed, UTI Patient Data Age: 75 Gender: F Height: 1.57 m Weight: 47.9 kg Last Vital Signs Temp 37.3 C 07/21/21 12:30 Pulse 120 H 07/21/21 12:30 Resp 20 07/21/21 12:30 BP 147/88 H 07/21/21 12:30 Pulse Ox 100 07/21/21 12:30 Allergies Allergy/AdvReac Type Severity Reaction Status Date / Time No Known Allergies Allergy Verified 07/21/21 12:29 Home Medications Medication Instructions Recorded Confirmed Type aspirin 325 mg PO DAILY #30 cap 05/21/21 07/20/21 Rx docusate sodium 100 mg PO BID #30 cap 05/21/21 07/20/21 Rx insulin glargine 15 unit SUBCUT HS 06/01/21 07/20/21 History dextromethorphan-guaifenesin 10 ml PO Q6H PRN #1000 ml 06/12/21 07/20/21 Rx [Robafen DM Cough] magnesium oxide 400 mg PO BID #30 tablet 06/12/21 07/20/21 Rx megestrol 20 mg PO TIDWM #60 tablet 06/12/21 07/20/21 Rx acetaminophen [Tylenol] 650 mg PO Q4H PRN 07/20/21 07/20/21 History cholecalciferol (vitamin D3) 50 mcg PO DAILY 07/20/21 07/20/21 History [Vitamin D3] insulin glargine 35 unit SUBCUT QAM 07/20/21 07/20/21 History insulin lispro 1 sliding scale dose SUBCUT 07/20/21 07/20/21 History USEASDIRECTD lisinopril 10 mg PO DAILY 07/20/21 07/20/21 History mirtazapine [Remeron] 15 mg PO DAILY 07/20/21 07/20/21 History ondansetron 4 mg PO Q6H PRN 07/20/21 07/20/21 History polyethylene glycol 3350 [Miralax] 17 g PO DAILY PRN 07/20/21 07/20/21 History tramadol 50 mg PO Q8H PRN 07/20/21 07/20/21 History Laboratory Tests 07/20/21 07/21/21 07/21/21 17:55 00:16 06:12 WBC 9.3 K/mm3 K/mm3 (4.5-10.0) RBC 3.41 M/mm3 L M/mm3 (4.2-5.4) Hgb 10.1 g/dL L g/dL 10.0 g/dL L g/dL 10.3 g/dL L g/dL (12.0-15.0) (12.0-15.0) (12.0-15.0) Hct 30.5 % L % 30.0 % L % 30.3 % L % (37.0-47.0) (37.0-47.0) (37.0-47.0) MCV 88.9 fl fl (80-100) MCH 30.2 pg pg (26-34) MCHC 34.0 g/dl g/dl (32-36) RDW 13.7 % % (11.5-14.5) Plt Count 200 k/mm3 k/mm3 (150-375) MPV 9.0 fl fl (7.4-10.4) Sodium Potassium Chloride Carbon Dioxide Anion Gap BUN Creatinine Estim Creat Clear Calc Estimated GFR Glucose POC Capillary Glucose Calcium Magnesium Total Bilirubin AST ALT Alkaline Phosphatase Total Protein Albumin 07/21/21 07/21/21 06:12 11:42 WBC RBC Hgb Hct MCV MCH MCHC RDW Plt Count MPV Sodium 138 mmol/L mmol/L (137-145) Potassium 3.6 mmol/L mmol/L (3.4-5.0) Chloride 101 mmol/L mmol/L (98-107) Carbon Dioxide 29 mmol/L mmol/L (22-30) Anion Gap 8 mmol/L mmol/L (8-16) BUN 21 mg/dL H D mg/dL (7-17) Creatinine 1.00 mg/dL mg/dL (0.7-1.0) Estim Creat Clear Calc 33 ml/min ml/min Estimated GFR 54 L (59 - ) Glucose 357 mg/dL H mg/dL (65-110) POC Capillary Glucose 295 mg/dl H mg/dl (65-105) Calcium 8.1 mg/dL L mg/dL (8.4-10.2) Magnesium 1.5 mg/dL L mg/dL (1.6-2.3) Total Bilirubin 0.7 mg/dL mg/dL (0.2-1.3) AST 22 U/L U/L (14-36) ALT 13 U/L U/L (4-35) Alkaline Phosphatase 80 U/L U/L (38-126) Total Protein 6.0 g/dL L g/dL (6.3-8.2) Albumin 3.3 g/dL L g/dL (3.5-5.1) Patient hx anesthesia problems: none Family hx anesthesia problems: none Results Review: All pre-operative results and documents have been reviewed as part of t
[2021-07-21 13:30] LABS: Glucose Point of Care 227 mg/dl (65-105)
[2021-07-21 14:24] LABS: Glucose Point of Care 241 mg/dl (65-105)
--- NOTE | 2021-07-21 16:32 | PM.IMPN ---
Progress Note: A&P Assessment and Plan (1) Acute upper gastrointestinal bleeding: Code(s): K92.2 - Gastrointestinal hemorrhage, unspecified Status: Acute Assessment and Plan: GI consulted Continue ngt, with IV Protonix EGD-->reflux esophagitis, gastritis ADAT (2) Dementia: Code(s): F03.90 - Unspecified dementia without behavioral disturbance Status: Acute Assessment and Plan: Supportive care (3) Type 2 diabetes mellitus, with long-term current use of insulin: Code(s): E11.9 - Type 2 diabetes mellitus without complications; Z79.4 - [facility] (current) use of insulin Status: Acute Assessment and Plan: Blood sugar less 357 D/c D5 saline, continue with NS Accuchecks, SSI, hypoglycemic protocol Monitor (4) Acute on chronic blood loss anemia: Code(s): D62 - Acute posthemorrhagic anemia Status: Acute Assessment and Plan: Hemoglobin 10.3 Appears to be at baseline S/p EGD noted above Transfuse with the hemoglobin less than 7 Monitor (5) Hypertension: Code(s): I10 - Essential (primary) hypertension Status: Acute Assessment and Plan: Stable Soft during procedure Hold home medication, resume when appropriate Monitor (6) ROSY (acute kidney injury): Code(s): N17.9 - Acute kidney failure, unspecified Status: Acute Assessment and Plan: Resolved Cr 1.00 today Continue IV hydration Avoid nephrotoxic agents Monito r (7) Tachycardia: Code(s): R00.0 - Tachycardia, unspecified Status: Acute Assessment and Plan: SR Possibly secondary to blood loss Tele monitoring Additional Plan Code status: FULL DVT Ppx: SCDs Subjective Date/time seen: 07/21/21 16:32 Interval history: Pt seen and examined; labs, vs, diagnostic results, consult notes reviewed; confused Review of Systems Review of Systems: All systems reviewed & are unremarkable except as noted in HPI and below Exam Const: General: no acute distress HENMT: Head: normocephalic and atraumatic Ears: external ears normal Mouth: Yes Normal oral and palatal mucosa present Eyes: EOM: EOMs intact bilaterally Neck: Neck: full ROM, trachea midline and no JVD Resp: Auscultation: clear to auscultation bilaterally Cardio: Jugular venous distension: no JVD Rate: regular rate Rhythm: regular rhythm Heart sounds: S1 normal heart sound present and S2 normal heart sound present GI: Inspection: normal to inspection GI Palp: Yes Soft to palpation Auscultation: normal bowel sounds : General: Yes no CVA tenderness Skin: General skin exam: normal color Rashes: no rashes Neuro: General: no focal motor deficits and confusion Extrem: General: no clubbing, cyanosis or edema Objective Data Vital Signs Vital Signs: Vital Signs - 24 hr 07/20/21 20:00 07/20/21 22:00 07/21/21 00:00 Temperature 36.7 C Pulse Rate 113 H 114 H 109 H Respiratory Rate 21 H Blood Pressure 105/80 Pulse Oximetry 100 07/21/21 04:00 07/21/21 06:00 07/21/21 08:00 Temperature 36.2 C L Pulse Rate 115 H 87 120 H Respiratory Rate 21 H Blood Pressure 149/87 H Pulse Oximetry 100 07/21/21 12:00 07/21/21 12:30 07/21/21 14:00 Temperature 37.3 C 36.8 C Pulse Rate 118 H 120 H 115 H Respiratory Rate 20 18 Blood Pressure 147/88 H 152/78 H Pulse Oximetry 100 100 07/21/21 14:15 07/21/21 14:25 07/21/21 14:35 Temperature Pulse Rate 81 99 110 H Respiratory Rate 22 H 32 H 31 H Blood Pressure 73/33 L 85/45 L 123/62 Pulse Oximetry 99 100 100 Intake/Output Intake/Output: Intake & Output 07/18/21 07/19/21 07/20/21 07/21/21 23:59 23:59 23:59 23:59 Intake Total 2934 1266.7 Output Total 450 50 Balance 2484 1216.7 Meds/Results Medications: Active Medications Generic Name Dose Route Start Last Admin Trade Name Freq PRN Reason Stop Dose Admin Dextrose 12.5 gm 07/21/21 10:11 Dextrose 50% 25 Gm/50 Ml Syrin
[2021-07-21 17:08] LABS: Glucose Point of Care 237 mg/dl (65-105)
[2021-07-21] MEDS: INSULIN ASPART (*BKC) 100 UNITS/ML SUB-Q (17:15)
[2021-07-21] MEDS: SUCRALFATE SUSP 100 MG/ML 10 ML UDC 1000 MG PO ×2 (17:15→20:20)
[2021-07-21] MEDS: PANTOPRAZOLE SODIUM IV 40 MG VIAL IV PUSH (20:20)
[2021-07-21 21:22] LABS: Glucose Point of Care 168 mg/dl (65-105)
[2021-07-22] VITALS (9 sets, daily range): BP systolic 164–175; BP diastolic 69–77; PULSE 107–112; RESP 14–21; TEMP 36.4–37.8; O2SAT 100; BMI 10.0
[2021-07-22 05:45] LABS: Hematocrit 30.2 % (37.0-47.0); Hemoglobin 10.3 g/dL (12.0-15.0); Mean Corpuscular HGB Conc 34.1 g/dl (32-36); Mean Corpuscular Hemoglobin 30.5 pg (26-34); Mean Corpuscular Volume 89.3 fl (80-100); Mean Platelet Volume 9.1 fl (7.4-10.4); Platelet Count Result 193 k/mm3 (150-375); Red Blood Count 3.38 M/mm3 (4.2-5.4); Red Cell Distribution Width 13.6 % (11.5-14.5); White Blood Count 7.6 K/mm3 (4.5-10.0)
[2021-07-22] MEDS: SUCRALFATE SUSP 100 MG/ML 10 ML UDC 1000 MG PO ×4 (06:30→20:44)
--- NOTE | 2021-07-22 06:59 | WPDANESPN ---
Anes - Prog Note Post-Op Date/Time: 07/22/21 06:59 Cardiovascular status: normal Respiratory status: other (O2 2L. Down from 4L) Airway patency: baseline Mental status: baseline Post-Op hydration status: normal Vital Signs: Last Vital Signs Temp 98.3 F 07/21/21 22:00 Pulse 112 H 07/22/21 04:00 Resp 21 H 07/21/21 22:00 BP 149/47 H 07/21/21 22:00 Pulse Ox 100 07/21/21 22:00 Pain Score (VAS): No pain I/O: Intake & Output 07/21/21 07/21/21 07/22/21 15:59 23:59 07:59 Intake Total 216.7 1000 50 Balance 216.7 1000 50 Laboratory Tests 07/22/21 05:08 07/21/21 06:12 07/21/21 07/21/21 07/21/21 11:42 13:28 14:21 WBC RBC Hgb Hct MCV MCH MCHC RDW Plt Count MPV POC Capillary Glucose 295 H 227 H 241 H 07/21/21 07/21/21 07/22/21 17:06 20:18 05:08 WBC 7.6 RBC 3.38 L Hgb 10.3 L Hct 30.2 L MCV 89.3 MCH 30.5 MCHC 34.1 RDW 13.6 Plt Count 193 MPV 9.1 POC Capillary Glucose 237 H 168 H Microbiology 07/20/21 04:19 Urine Clean Catch Urine Culture - Final Patient Feedback: Patient satisfied with anesthetic care.
[2021-07-22 07:41] LABS: Glucose Point of Care 155 mg/dl (65-105)
--- NOTE | 2021-07-22 07:45 | PM.IMPN ---
Progress Note: A&P Assessment and Plan (1) Acute upper gastrointestinal bleeding: Code(s): K92.2 - Gastrointestinal hemorrhage, unspecified Status: Acute Assessment and Plan: GI consulted Continue IV Protonix EGD-->reflux esophagitis, gastritis ADAT (2) Dementia: Code(s): F03.90 - Unspecified dementia without behavioral disturbance Status: Acute Assessment and Plan: Supportive care (3) Type 2 diabetes mellitus, with long-term current use of insulin: Code(s): E11.9 - Type 2 diabetes mellitus without complications; Z79.4 - [facility] (current) use of insulin Status: Acute Assessment and Plan: Blood sugar 163 D/c D5 saline, continue with NS Accuchecks, SSI, hypoglycemic protocol Monitor (4) Acute on chronic blood loss anemia: Code(s): D62 - Acute posthemorrhagic anemia Status: Acute Assessment and Plan: Hemoglobin 10.3 Appears to be at baseline S/p EGD noted above Transfuse with the hemoglobin less than 7 Monitor (5) Hypertension: Code(s): I10 - Essential (primary) hypertension Status: Acute Assessment and Plan: Stable Soft during procedure Hold home medication, resume when appropriate Monitor (6) ROSY (acute kidney injury): Code(s): N17.9 - Acute kidney failure, unspecified Status: Acute Assessment and Plan: Resolved Cr 1.00 07/21/21 Continue IV hydration Avoid nephrotoxic agents Monitor (7) Tachycardia: Code(s): R00.0 - Tachycardia, unspecified Status: Acute Assessment and Plan: SR Possibly secondary to blood loss Tele monitoring (8) Failure to thrive: Status: Acute Assessment and Plan: Refusing to eat Speech saw patient she was able to swallow Continue to encourage PO intake (9) Fever: Code(s): R50.9 - Fever, unspecified Status: Acute Assessment and Plan: Very mild, 100.1 Tylenol on board Trend temp Additional Plan Code status: FULL DVT Ppx: SCDs Subjective Date/time seen: 07/22/21 0745 Interval history: Date/Time: 07/20/21 11:57 This is a 74-year-old female who presented to emergency department with complaints of coffee-ground emesis. Patient has a past medical history right hip fracture, basal cell carcinoma, hypertension, osteoarthritis, hypercholesterolemia, type 2 diabetes, vitamin-D deficiency and acute blood loss anemia. Patient is well known to me from [facility]. Patient has a history of being confused today she is at baseline. She is a poor historian all information obtained through medical records. According to medical records patient had 4 episodes coffee-ground emesis in the ED. vital signs 43/73, 24, 100% room air, 121 wbc's 12.0, hemoglobin 11.4, hematocrit 34.1, platelets 238, sodium 138, potassium 4.5, BUN 32, creatinine 1.20, lactic acid 1.8, liver function test within normal limits except T bili which is 1.6 BNP 126, urine positive for leukocytes RBC, abdominal x-ray unremarkable, CT of the abdomen indicate possible colitis and/or gastritis resolving and thickening endometrial, chest x-ray indicated possible pneumonia EKG sinus tach with heart rate of 123. Date/time seen: 07/21/21 16:32 Interval history: Pt seen and examined; labs, vs, diagnostic results, consult notes reviewed; confused Date/Time 07/22/21 0745 Patient is lying in bed and really does not answer any questions. She denies having any complaints at this time. Patient is pale and she is tachycardic as well. Fluids have been continued. Magnesium was 1.5 replaced appropriately. Patient does look a little pale H&H stable 10.3/30.2. Very very mild fever of 100.1F. WBC is normal. Patient is not eating. She is refusion to eat at this time. She denies chest pain, shortness of breath, chest pain, weakness, fatigue, sweats, fevers, and chills. Review of Systems Review of Systems: All systems reviewed &
[2021-07-22] MEDS: PANTOPRAZOLE SODIUM IV 40 MG VIAL IV PUSH ×2 (08:23→20:44)
[2021-07-22] MEDS: MAGNESIUM SULF 4 GM/WATER100ML 4 GM/100 ML BAG IVPB (08:23)
--- NOTE | 2021-07-22 10:52 | PCSTNOTE ---
Please refer to the Bedside Swallow Evaluation in the EMR. Please note, silent aspiration cannot be ruled out at bedside.
--- NOTE | 2021-07-22 10:55 | PCSTNOTE ---
Please refer to the Bedside Swallow Evaluation in the EMR. Please note, silent aspiration cannot be ruled out at bedside.
[2021-07-22] MEDS: SODIUM CHLORIDE 0.9% IV 1,000 ML 100 ML IV CONT (11:43)
[2021-07-22 11:48] LABS: Glucose Point of Care 163 mg/dl (65-105)
[2021-07-22 13:30] LABS: Lactate Dehydrogenase 478 U/L (313-618)
[2021-07-22 13:37] LABS: Transferrin 108 mg/dL (206-381)
[2021-07-22 13:39] LABS: Iron 43 ug/dL (37-170)
[2021-07-22 13:50] LABS: Percent Iron Saturation 24 % (20-50)
[2021-07-22 14:37] LABS: Folic Acid 5.6 ng/mL (2.76->20)
--- NOTE | 2021-07-22 14:42 | WPDGIPROGNO ---
Progress Note: A&P Assessment and Plan (1) Acute upper gastrointestinal bleeding: Code(s): K92.2 - Gastrointestinal hemorrhage, unspecified Status: Acute Assessment and Plan: no more bleeding, had gastritis and esophagitis continue with iv protonix RN reports that poor appetite and confusion will need aspiration precaution and start feeding when more awake, may need speech evaluation (2) Gastritis: Code(s): K29.70 - Gastritis, unspecified, without bleeding Status: Acute Assessment and Plan: on protonix and carafate (3) Dementia: Code(s): F03.90 - Unspecified dementia without behavioral disturbance Status: Acute (4) Type 2 diabetes mellitus, with long-term current use of insulin: Code(s): E11.9 - Type 2 diabetes mellitus without complications; Z79.4 - [facility] (current) use of insulin Status: Acute Assessment and Plan: on meds Subjective Date/time seen: 07/22/21 14:43 Interval history: egd yesterday showed gastritis and esophagitis without active bleeding. No more coffee ground emesis since ngt removed, still confused ? baseline Review of Systems Review of Systems: All systems reviewed & are unremarkable except as noted in HPI and below Exam Const: General: ill appearing chronically Other: awake but confused HENMT: General nose exam: Normal nares present Eyes: Sclera: sclerae normal Neck: Neck: supple Resp: Auscultation: clear to auscultation bilaterally Cardio: Rate: regular rate GI: Inspection: non-distended GI Palp: Yes Soft to palpation and No Guarding due to palpation present (GI) Auscultation: normal bowel sounds Skin: General skin exam: no rashes or lesions noted Neuro: Other: awake, confused Extrem: General: normal to inspection Objective Data Vital Signs Vital Signs: Vital Signs - 24 hr 07/21/21 16:00 07/21/21 20:00 07/21/21 22:00 Temperature 98.3 F Pulse Rate 116 H 108 H 105 H Respiratory Rate 21 H 21 H Blood Pressure 149/47 H Pulse Oximetry 100 100 07/22/21 00:00 07/22/21 04:00 07/22/21 06:00 Temperature 97.6 F Pulse Rate 109 H 112 H 111 H Respiratory Rate 21 H Blood Pressure 168/71 H Pulse Oximetry 100 07/22/21 08:00 07/22/21 12:00 Temperature Pulse Rate 110 H 112 H Respiratory Rate Blood Pressure Pulse Oximetry Intake/Output Intake/Output: Intake & Output 07/19/21 07/20/21 07/21/21 07/22/21 23:59 23:59 23:59 23:59 Intake Total 2934 2266.7 1330 Output Total 450 50 Balance 2484 2216.7 1330 Meds/Results Medications: Active Medications Generic Name Dose Route Start Last Admin Trade Name Freq PRN Reason Stop Dose Admin Dextrose 12.5 gm 07/21/21 10:11 Dextrose 50% 25 Gm/50 Ml Syringe IV PUSH PRN PRN Hypoglycemia Protocol Glucagon 1 mg 07/21/21 10:11 Glucagon For Inj 1 Mg Vial IM PRN PRN Hypoglycemia Protocol Glucose 15 gm 07/21/21 10:11 Glucose Oral Gel 15 Gm Of Glucse In 37.5 Gm Tube PO PRN PRN Hypoglycemia Protocol Ceftriaxone Sodium/Dextrose 1 gm in 50 mls @ 100 mls/hr 07/21/21 06:00 07/22/21 06:54 Rocephin 1 Gm/D5w 50 Ml IVPB Infused Q24H DAVINA Infusion Dextrose 1,000 mls @ 100 mls/hr 07/21/21 10:11 Dextrose 5% 1,000 Ml IVPB PRN PRN Hypoglycemia Protocol Sodium Chloride 1,000 mls @ 100 mls/hr 07/21/21 10:15 07/22/21 11:43 Normal Saline Iv IV CONT 100 mls/hr .Q10H DAVINA Administration Insulin Aspart 2 - 5 units 07/21/21 17:00 07/22/21 11:42 Insulin Aspart (*Bkc) 100 Units/Ml SUB-Q Not Given TIDWM DAVINA Protocol Ondansetron HCl 4 mg 07/20/21 05:56 Ondansetron Inj 4 Mg/2 Ml Vial IV PUSH Q4H PRN Nausea Pantoprazole Sodium 40 mg 07/21/21 21:00 07/22/21 08:23 Pantoprazole Sodium Iv 40 Mg Vial IV PUSH 40 mg Q12HR DAVINA Administration Sucralfate 1,000 mg 07/21/21 16:30 07/22/21 11:44 Sucralfate Susp 1
[2021-07-22 16:39] LABS: Glucose Point of Care 160 mg/dl (65-105)
[2021-07-22 18:40] LABS: Anion Gap 7 mmol/L (8-16); Blood Urea Nitrogen 15 mg/dL (7-17); Calcium 7.6 mg/dL (8.4-10.2); Carbon Dioxide 29 mmol/L (22-30); Chloride 100 mmol/L (98-107); Estimated CRCL calculation 47 ml/min; Estimated Glomerular Filt Rate > 60; Glucose 163 mg/dL (65-110); Potassium 2.8 mmol/L (3.4-5.0); Sodium 136 mmol/L (137-145)
[2021-07-22] MEDS: POTASSIUM CHLORIDE INJ 40 MEQ in SODIUM CHLORIDE 0.9% IV 500 ML 130 MEQ IVPB (19:01)
[2021-07-22 22:58] LABS: Glucose Point of Care 156 mg/dl (65-105)
[2021-07-23] VITALS (12 sets, daily range): BP systolic 146–157; BP diastolic 69–86; PULSE 95–115; RESP 20–21; TEMP 36.4–37.1; O2SAT 96–100
--- NOTE | 2021-07-23 | ECHO_ITS ---
Patient Info Name: Amy Dhaliwal Age: 75 years : 1945 Gender: Female Ht: 62 in Wt: 105 lbs BSA: 1.44 m2 HR: 117 bpm BP: 157 / 80 mmHg Technical Quality: Good Exam Date: 07/23/2021 12:49 PM Exam Location: [facility] Pulmonary Patient Status: Inpatient Admit Date: 07/22/2021 Staff Ordering Physician: Everett Márquez Market Development Trainer: Santos Reyna RDCS, RT Attending Provider: James Segal MD Referring Physician: Willi LEVY; Exam Type: CA echo doppler color flow Study Info Indications R06.00 - Dyspnea, unspecified Complete two-dimensional, color flow and Doppler transthoracic echocardiogram is performed. Strain analysis performed. Summary 1. Complete two-dimensional, color flow and Doppler transthoracic echocardiogram is performed. 2. Left ventricular chamber dimension is normal. 3. Left ventricular systolic function is normal, estimated at 60-65%. 4. The left ventricular diastolic function is grade I diastolic dysfunction. 5. E/e' 10 is mildly elevated. 6. Global longitudinal strain is abnormal at -13.0%. 7. There is moderate aortic valve sclerosis. 8. There is mild aortic valve stenosis with a peak velocity of 144 cm/s, mean gradient of 5 mmHg, and aortic valve area of 1.7 cm2. Left Ventricle E/e' 10 is mildly elevated. Global longitudinal strain is abnormal at -13.0%. Left ventricular chamber dimension is normal. Left ventricular systolic function is normal, estimated at 60-65%. The left ventricular diastolic function is grade I diastolic dysfunction. Right Ventricle Right ventricular systolic function is normal and with normal TAPSE 1.9 cm.. Right ventricular chamber dimension is normal. Left Atria Left atrial chamber dimension is normal. Right Atria Right atrial chamber dimension is normal. Aortic Valve The aortic valve is trileaflet. There is moderate aortic valve sclerosis. There is mild aortic valve stenosis with a peak velocity of 144 cm/s, mean gradient of 5 mmHg, and aortic valve area of 1.7 cm2. There is no aortic valve regurgitation. Pulmonic Valve There is no pulmonic regurgitation. Mitral Valve There is no mitral valve stenosis. There is no mitral valve regurgitation. Tricuspid Valve There is no tricuspid valve regurgitation. Pericardium/Pleural There is no pericardial effusion. Inferior Vena Cava Normal inferior vena cava with >50% collapse upon inspiration consistent with normal right atrial pressure, 5 mmHg. Aorta The aortic root size at the sinus of Valsalva is normal. Left Ventricular Outflow Tract Name Value Normal LVOT 2D LVOT Diameter 1.9 cm LVOT Doppler LVOT Peak Gradient 4 mmHg LVOT Mean Gradient 2 mmHg LVOT VTI 15 cm LVOT VTI/AV VTI Ratio 0.6 LVOT Stroke Volume 44 ml LVOT CO 5.4 l/min LVOT CI 3.8 l/min/m2 Mitral Valve Name
[2021-07-23] MEDS: KCL 20 MEQ/SW 100 ML 100 ML 50 MEQ IVPB (03:55)
[2021-07-23] MEDS: SUCRALFATE SUSP 100 MG/ML 10 ML UDC 1000 MG PO (05:14)
[2021-07-23 06:18] LABS: Anion Gap 8 mmol/L (8-16); Blood Urea Nitrogen 14 mg/dL (7-17); Calcium 7.8 mg/dL (8.4-10.2); Carbon Dioxide 27 mmol/L (22-30); Chloride 100 mmol/L (98-107); Estimated CRCL calculation 47 ml/min; Estimated Glomerular Filt Rate > 60; Glucose 154 mg/dL (65-110); Magnesium 1.9 mg/dL (1.6-2.3); Potassium 3.7 mmol/L (3.4-5.0); Sodium 135 mmol/L (137-145)
[2021-07-23] MEDS: PANTOPRAZOLE SODIUM IV 40 MG VIAL IV PUSH ×2 (07:50→21:00)
[2021-07-23 08:34] LABS: Basophils Percent Auto 0.3 % (0.2-1.2); Eosinophils Percent Auto 0.5 % (0-4.4); Hematocrit 31.3 % (37.0-47.0); Hemoglobin 10.5 g/dL (12.0-15.0); Immature Granulocyte Absolute 0.02 K/mm3 (0.00-0.031); Immature Granulocyte Percent A 0.3 % (0-0.5); Lymphocytes Absolute Auto 1.58 K/mm3 (0.9-3.2); Lymphocytes Percent Auto 24.3 % (18.3-44.2); Mean Corpuscular HGB Conc 33.5 g/dl (32-36); Mean Corpuscular Hemoglobin 30.3 pg (26-34); Mean Corpuscular Volume 90.5 fl (80-100); Mean Platelet Volume 9.7 fl (7.4-10.4); Monocytes Absolute Auto 0.5 K/mm3 (0.1-0.6); Monocytes Percent Auto 7.9 % (2.6-8.5); Neutrophils Absolute Auto 4.3 K/mm3 (1.3-6.7); Neutrophils Percent Auto 66.7 % (45.5-73.1); Platelet Count Result 192 k/mm3 (150-375); Red Blood Count 3.46 M/mm3 (4.2-5.4); Red Cell Distribution Width 13.5 % (11.5-14.5); White Blood Count 6.5 K/mm3 (4.5-10.0)
--- NOTE | 2021-07-23 08:45 | PM.IMPN ---
Progress Note: A&P Assessment and Plan (1) Acute CVA (cerebrovascular accident): Code(s): I63.9 - Cerebral infarction, unspecified Status: Acute Assessment and Plan: Head CT shows Acute versus subacute infarct involving the right temporal lobe and right insula, Small old infarct in left cerebellum. MRI ordered Restart home aspirin at this time Consider plavix, going to hold off for right now since she is here for an acute GI Bleed (2) Congestive heart failure: Code(s): I50.9 - Heart failure, unspecified Status: Acute Assessment and Plan: Still awaiting echo results Chest xray indicates PNA Lasix on a day by day basis Daily weights Caution hydration (3) Pneumonia: Code(s): J18.9 - Pneumonia, unspecified organism Status: Acute Assessment and Plan: Chest xray shows PNA Ceftriaxone and azithromycin on board WBC normal Continue to monitor breathing status Supplemental oxygen wean to maintain saturations >90% (4) Acute upper gastrointestinal bleeding: Code(s): K92.2 - Gastrointestinal hemorrhage, unspecified Status: Acute Assessment and Plan: GI consulted Continue IV Protonix EGD-->reflux esophagitis, gastritis ADAT (5) Dementia: Code(s): F03.90 - Unspecified dementia without behavioral disturbance Status: Acute Assessment and Plan: Supportive care (6) Type 2 diabetes mellitus, with long-term current use of insulin: Code(s): E11.9 - Type 2 diabetes mellitus without complications; Z79.4 - [employer] (current) use of insulin Status: Acute Assessment and Plan: Blood sugar 154 D/c D5 saline, continue with NS Accuchecks, SSI, hypoglycemic protocol Monitor (7) Acute on chronic blood loss anemia: Code(s): D62 - Acute posthemorrhagic anemia Status: Acute Assessment and Plan: Hemoglobin 10.5 Appears to be at baseline S/p EGD noted above Transfuse with the hemoglobin less than 7 Monitor (8) Hypertension: Code(s): I10 - Essential (primary) hypertension Status: Acute Assessment and Plan: Stable, current 157/80 Soft during procedure Hold home medication, resume when appropriate Monitor (9) ROSY (acute kidney injury): Code(s): N17.9 - Acute kidney failure, unspecified Status: Acute Assessment and Plan: Resolved Cr 1.00 07/21/21 Continue IV hydration Avoid nephrotoxic agents Monitor (10) Tachycardia: Code(s): R00.0 - Tachycardia, unspecified Status: Acute Assessment and Plan: SR Possibly secondary to blood loss Tele monitoring (11) Failure to thrive: Status: Acute Assessment and Plan: Refusing to eat Speech saw patient she was able to swallow Continue to encourage PO intake (12) Fever: Code(s): R50.9 - Fever, unspecified Status: Acute Assessment and Plan: Very mild, 100.1 Tylenol on board Trend temp Additional Plan Code status: FULL DVT Ppx: SCDs Time Spent With Patient Time with patient: Greater than 35 minutes Subjective Date/time seen: 07/23/21 14:04 Interval history: Date/Time: 07/20/21 11:57 This is a 74-year-old female who presented to emergency department with complaints of coffee-ground emesis. Patient has a past medical history right hip fracture, basal cell carcinoma, hypertension, osteoarthritis, hypercholesterolemia, type 2 diabetes, vitamin-D deficiency and acute blood loss anemia. Patient is well known to me from [facility] [place]. Patient has a history of being confused today she is at baseline. She is a poor historian all information obtained through medical records. According to medical records patient had 4 episodes coffee-ground emesis in the ED. vital signs 43/73, 24, 100% room air, 121 wbc's 12.0, hemoglobin 11.4, hematocrit 34.1, platelets 238, sodium 138, potassium 4.5, BUN 32, creatinine 1.
[2021-07-23 09:48] LABS: Glucose Point of Care 158 mg/dl (65-105)
[2021-07-23 10:14] LABS: NT Pro B Type Natriuretic Pept 1720 pg/mL (5-100); Troponin I 0.026 ng/mL (0.000-0.034)
[2021-07-23 12:05] LABS: Glucose Point of Care 133 mg/dl (65-105)
--- NOTE | 2021-07-23 12:39 | WPDGIPROGNO ---
Progress Note: A&P Assessment and Plan (1) Gastritis: Code(s): K29.70 - Gastritis, unspecified, without bleeding Status: Acute Assessment and Plan: on protonix and carafate no signs of bleeding, moderate gastritis (2) Acute upper gastrointestinal bleeding: Code(s): K92.2 - Gastrointestinal hemorrhage, unspecified Status: Acute Assessment and Plan: no more bleeding, had gastritis and esophagitis continue with iv protonix she has not been eating and now with possible new stroke (3) Stroke: Code(s): I63.9 - Cerebral infarction, unspecified Status: Acute Assessment and Plan: more lethargic and new CT head (reviewed) showed acute vs subacute stroke should be ok to use baby aspirin if indicated (4) Dementia: Code(s): F03.90 - Unspecified dementia without behavioral disturbance Status: Acute (5) Type 2 diabetes mellitus, with long-term current use of insulin: Code(s): E11.9 - Type 2 diabetes mellitus without complications; Z79.4 - intermediate (current) use of insulin Status: Acute Assessment and Plan: on meds (6) Failure to thrive: Status: Acute Subjective Date/time seen: 07/23/21 12:39 Interval history: awake but not really answering questions, RN also reports that she has not been eating. CT head showed acute versus subacute infarct involving the right temporal lobe and right insula. Review of Systems Review of Systems: All systems reviewed & are unremarkable except as noted in HPI and below Exam Const: Other: chronically ill HENMT: General nose exam: Normal nares present Eyes: Sclera: sclerae normal Neck: Neck: supple Resp: Auscultation: clear to auscultation bilaterally Cardio: Rate: regular rate GI: GI Palp: Yes Soft to palpation, No Tenderness to palpation present (GI) and Yes Guarding due to palpation present (GI) Skin: General skin exam: no rashes or lesions noted Neuro: Other: awake but no talking Extrem: General: normal to inspection Psych: Other: unable to assess Objective Data Vital Signs Vital Signs: Vital Signs - 24 hr 07/22/21 14:24 07/22/21 16:00 07/22/21 20:00 Temperature 100.1 F H Pulse Rate 109 H 110 H 110 H Respiratory Rate 14 14 Blood Pressure 164/77 H Pulse Oximetry 100 100 07/22/21 22:00 07/23/21 00:00 07/23/21 04:00 Temperature 97.6 F Pulse Rate 107 H 113 H 114 H Respiratory Rate 21 H Blood Pressure 175/69 H Pulse Oximetry 100 07/23/21 06:00 07/23/21 08:00 Temperature 98.8 F Pulse Rate 112 H 115 H Respiratory Rate 21 H Blood Pressure 157/80 H Pulse Oximetry 100 Intake/Output Intake/Output: Intake & Output 07/20/21 07/21/21 07/22/21 07/23/21 23:59 23:59 23:59 23:59 Intake Total 2934 2266.7 1550 520 Output Total 450 50 Balance 2484 2216.7 1550 520 Meds/Results Medications: Active Medications Generic Name Dose Route Start Last Admin Trade Name Freq PRN Reason Stop Dose Admin Dextrose 12.5 gm 07/21/21 10:11 Dextrose 50% 25 Gm/50 Ml Syringe IV PUSH PRN PRN Hypoglycemia Protocol Glucagon 1 mg 07/21/21 10:11 Glucagon For Inj 1 Mg Vial IM PRN PRN Hypoglycemia Protocol Glucose 15 gm 07/21/21 10:11 Glucose Oral Gel 15 Gm Of Glucse In 37.5 Gm Tube PO PRN PRN Hypoglycemia Protocol Ceftriaxone Sodium/Dextrose 1 gm in 50 mls @ 100 mls/hr 07/21/21 06:00 07/23/21 05:14 Rocephin 1 Gm/D5w 50 Ml IVPB 100 mls/hr Q24H DAVINA Administration Dextrose 1,000 mls @ 100 mls/hr 07/21/21 10:11 Dextrose 5% 1,000 Ml IVPB PRN PRN Hypoglycemia Protocol Sodium Chloride 1,000 mls @ 100 mls/hr 07/21/21 10:15 07/22/21 11:43 Normal Saline Iv IV CONT 100 mls/hr .Q10H DAVINA Administration Azithromycin 500 mg in 250 mls @ 250 mls/hr 07/23/21 12:00 07/23/21 12:20 Zithromax IVPB 250 mls/hr Q24H DAVINA Administration Insulin Aspart 2 - 5 units 01
[2021-07-23] MEDS: FUROSEMIDE INJ 40 MG/4 ML VIAL IV PUSH (14:41)
[2021-07-23] MEDS: METOPROLOL TARTRATE INJ 5 MG/5 ML VIAL 2.5 MG IV PUSH ×2 (15:24→21:00)
[2021-07-23 16:21] LABS: Glucose Point of Care 155 mg/dl (65-105)
[2021-07-23 21:47] LABS: Glucose Point of Care 136 mg/dl (65-105)
[2021-07-23] MEDS: SODIUM CHLORIDE 0.9% IV 1,000 ML 100 ML IV CONT (23:52)
[2021-07-24] VITALS (12 sets, daily range): BP systolic 144–165; BP diastolic 60–72; PULSE 90–109; RESP 18–32; TEMP 36.2–36.8; O2SAT 97–100
[2021-07-24] MEDS: METOPROLOL TARTRATE INJ 5 MG/5 ML VIAL 2.5 MG IV PUSH ×3 (05:09→21:11)
[2021-07-24 06:05] LABS: Basophils Percent Auto 0.3 % (0.2-1.2); Eosinophils Percent Auto 0.5 % (0-4.4); Hematocrit 31.9 % (37.0-47.0); Hemoglobin 10.9 g/dL (12.0-15.0); Immature Granulocyte Absolute 0.02 K/mm3 (0.00-0.031); Immature Granulocyte Percent A 0.3 % (0-0.5); Lymphocytes Absolute Auto 1.84 K/mm3 (0.9-3.2); Lymphocytes Percent Auto 31.1 % (18.3-44.2); Mean Corpuscular HGB Conc 34.2 g/dl (32-36); Mean Corpuscular Hemoglobin 30.4 pg (26-34); Mean Corpuscular Volume 89.1 fl (80-100); Mean Platelet Volume 9.5 fl (7.4-10.4); Monocytes Absolute Auto 0.5 K/mm3 (0.1-0.6); Monocytes Percent Auto 8.1 % (2.6-8.5); Neutrophils Absolute Auto 3.5 K/mm3 (1.3-6.7); Neutrophils Percent Auto 59.7 % (45.5-73.1); Platelet Count Result 161 k/mm3 (150-375); Red Blood Count 3.58 M/mm3 (4.2-5.4); Red Cell Distribution Width 13.2 % (11.5-14.5); White Blood Count 5.9 K/mm3 (4.5-10.0)
[2021-07-24 06:18] LABS: Alanine Aminotransferase 10 U/L (4-35); Alkaline Phosphatase 63 U/L (38-126); Anion Gap 7 mmol/L (8-16); Aspartate Amino Transferase 25 U/L (14-36); Bilirubin,Total 0.6 mg/dL (0.2-1.3); Blood Urea Nitrogen 15 mg/dL (7-17); Calcium 7.7 mg/dL (8.4-10.2); Carbon Dioxide 27 mmol/L (22-30); Chloride 98 mmol/L (98-107); Estimated CRCL calculation 41 ml/min; Estimated Glomerular Filt Rate > 60; Glucose 114 mg/dL (65-110); Magnesium 1.5 mg/dL (1.6-2.3); Sodium 132 mmol/L (137-145)
[2021-07-24] MEDS: SODIUM CHLORIDE 0.9% IV 1,000 ML 100 ML IV CONT ×2 (09:32→21:10)
[2021-07-24] MEDS: MAGNESIUM SULF 4 GM/WATER100ML 4 GM/100 ML BAG IVPB (09:33)
[2021-07-24] MEDS: PANTOPRAZOLE SODIUM IV 40 MG VIAL IV PUSH ×2 (09:33→21:11)
--- NOTE | 2021-07-24 09:45 | P.PNIM_ITS ---
Progress Note: A&P Assessment and Plan (1) Acute CVA (cerebrovascular accident): Code(s): I63.9 - Cerebral infarction, unspecified Status: Acute Assessment and Plan: * Head CT shows Acute versus subacute infarct involving the right temporal lobe and right insula, Small old infarct in left cerebellum. * MRI Cancel * Restart home aspirin at this time * Consider plavix, going to hold off for right now since she is here for an acute GI Bleed (2) Congestive heart failure: Code(s): I50.9 - Heart failure, unspecified Status: Acute Assessment and Plan: * Still awaiting echo results * Chest xray indicates PNA * Lasix on a day by day basis * Daily weights * Caution hydration (3) Pneumonia: Code(s): J18.9 - Pneumonia, unspecified organism Status: Acute Assessment and Plan: * Chest xray shows PNA * Ceftriaxone and azithromycin on board * WBC normal * Continue to monitor breathing status * Supplemental oxygen wean to maintain saturations >90% (4) Acute upper gastrointestinal bleeding: Code(s): K92.2 - Gastrointestinal hemorrhage, unspecified Status: Acute Assessment and Plan: GI consulted Continue IV Protonix EGD-->reflux esophagitis, gastritis ADAT (5) Dementia: Code(s): F03.90 - Unspecified dementia without behavioral disturbance Status: Acute Assessment and Plan: Supportive care (6) Type 2 diabetes mellitus, with long-term current use of insulin: Code(s): E11.9 - Type 2 diabetes mellitus without complications; Z79.4 - [facility] (current) use of insulin Status: Acute Assessment and Plan: Blood sugar 154 D/c D5 saline, continue with NS Accuchecks, SSI, hypoglycemic protocol Monitor (7) Acute on chronic blood loss anemia: Code(s): D62 - Acute posthemorrhagic anemia Status: Acute Assessment and Plan: Hemoglobin 10.5 Appears to be at baseline S/p EGD noted above Transfuse with the hemoglobin less than 7 Monitor (8) Hypertension: Code(s): I10 - Essential (primary) hypertension Status: Acute Assessment and Plan: Stable, current 157/80 Soft during procedure Hold home medication, resume when appropriate Monitor (9) ROSY (acute kidney injury): Code(s): N17.9 - Acute kidney failure, unspecified Status: Acute Assessment and Plan: Resolved Cr 1.00 07/21/21 Continue IV hydration Avoid nephrotoxic agents Monitor (10) Tachycardia: Code(s): R00.0 - Tachycardia, unspecified Status: Acute Assessment and Plan: SR Possibly secondary to blood loss Tele monitoring (11) Failure to thrive: Status: Acute Assessment and Plan: Refusing to eat Speech saw patient she was able to swallow Continue to encourage PO intake (12) Fever: Code(s): R50.9 - Fever, unspecified Status: Acute Assessment and Plan: * Very mild, 100.1 * Tylenol on board * Trend temp (13) Acute metabolic encephalopathy: Code(s): G93.41 - Metabolic encephalopathy Status: Acute Assessment and Plan: * probably related to the stroke * family has decided to make patient hospice * patient will go home tomorrow Time Spent With Patient Time with patient: Greater than 35 minutes Subjective Date/time seen: 07/24/21 0945
--- NOTE | 2021-07-24 09:45 | PM.IMPN ---
Progress Note: A&P Assessment and Plan (1) Acute CVA (cerebrovascular accident): Code(s): I63.9 - Cerebral infarction, unspecified Status: Acute Assessment and Plan: Head CT shows Acute versus subacute infarct involving the right temporal lobe and right insula, Small old infarct in left cerebellum. MRI Cancel Restart home aspirin at this time Consider plavix, going to hold off for right now since she is here for an acute GI Bleed (2) Congestive heart failure: Code(s): I50.9 - Heart failure, unspecified Status: Acute Assessment and Plan: Still awaiting echo results Chest xray indicates PNA Lasix on a day by day basis Daily weights Caution hydration (3) Pneumonia: Code(s): J18.9 - Pneumonia, unspecified organism Status: Acute Assessment and Plan: Chest xray shows PNA Ceftriaxone and azithromycin on board WBC normal Continue to monitor breathing status Supplemental oxygen wean to maintain saturations >90% (4) Acute upper gastrointestinal bleeding: Code(s): K92.2 - Gastrointestinal hemorrhage, unspecified Status: Acute Assessment and Plan: GI consulted Continue IV Protonix EGD-->reflux esophagitis, gastritis ADAT (5) Dementia: Code(s): F03.90 - Unspecified dementia without behavioral disturbance Status: Acute Assessment and Plan: Supportive care (6) Type 2 diabetes mellitus, with long-term current use of insulin: Code(s): E11.9 - Type 2 diabetes mellitus without complications; Z79.4 - [facility] (current) use of insulin Status: Acute Assessment and Plan: Blood sugar 154 D/c D5 saline, continue with NS Accuchecks, SSI, hypoglycemic protocol Monitor (7) Acute on chronic blood loss anemia: Code(s): D62 - Acute posthemorrhagic anemia Status: Acute Assessment and Plan: Hemoglobin 10.5 Appears to be at baseline S/p EGD noted above Transfuse with the hemoglobin less than 7 Monitor (8) Hypertension: Code(s): I10 - Essential (primary) hypertension Status: Acute Assessment and Plan: Stable, current 157/80 Soft during procedure Hold home medication, resume when appropriate Monitor (9) ROSY (acute kidney injury): Code(s): N17.9 - Acute kidney failure, unspecified Status: Acute Assessment and Plan: Resolved Cr 1.00 07/21/21 Continue IV hydration Avoid nephrotoxic agents Monitor (10) Tachycardia: Code(s): R00.0 - Tachycardia, unspecified Status: Acute Assessment and Plan: SR Possibly secondary to blood loss Tele monitoring (11) Failure to thrive: Status: Acute Assessment and Plan: Refusing to eat Speech saw patient she was able to swallow Continue to encourage PO intake (12) Fever: Code(s): R50.9 - Fever, unspecified Status: Acute Assessment and Plan: Very mild, 100.1 Tylenol on board Trend temp (13) Acute metabolic encephalopathy: Code(s): G93.41 - Metabolic encephalopathy Status: Acute Assessment and Plan: probably related to the stroke family has decided to make patient hospice patient will go home tomorrow Time Spent With Patient Time with patient: Greater than 35 minutes Subjective Date/time seen: 07/24/21 0945 Interval history: Date/Time: 07/20/21 11:57 This is a 74-year-old female who presented to emergency department with complaints of coffee-ground emesis. Patient has a past medical history right hip fracture, basal cell carcinoma, hypertension, osteoarthritis, hypercholesterolemia, type 2 diabetes, vitamin-D deficiency and acute blood loss anemia. Patient is well known to me from [facility]. Patient has a history of being confused today she is at baseline. She is a poor historian all information obtained through medical records. According to medical records p
[2021-07-24 12:02] LABS: Glucose Point of Care 110 mg/dl (65-105)
--- NOTE | 2021-07-24 14:13 | WPDGIPROGNO ---
Progress Note: A&P Assessment and Plan (1) Gastritis: Code(s): K29.70 - Gastritis, unspecified, without bleeding Status: Acute Assessment and Plan: on protonix and carafate no signs of bleeding, moderate gastritis will sign off (2) Acute upper gastrointestinal bleeding: Code(s): K92.2 - Gastrointestinal hemorrhage, unspecified Status: Acute Assessment and Plan: no more bleeding, had gastritis and esophagitis hb stable (3) Stroke: Code(s): I63.9 - Cerebral infarction, unspecified Status: Acute Assessment and Plan: more lethargic and new finding acute vs subacute stroke should be ok to use baby aspirin primary planning to discharge patient under comfort care per RN report (4) Dementia: Code(s): F03.90 - Unspecified dementia without behavioral disturbance Status: Acute (5) Type 2 diabetes mellitus, with long-term current use of insulin: Code(s): E11.9 - Type 2 diabetes mellitus without complications; Z79.4 - [facility] (current) use of insulin Status: Acute Assessment and Plan: on meds (6) Failure to thrive: Status: Acute Subjective Date/time seen: 07/24/21 14:13 Interval history: non-verbal Review of Systems Review of Systems: All systems reviewed & are unremarkable except as noted in HPI and below Exam Const: Other: chronically ill, lethargic HENMT: General nose exam: Normal nares present Eyes: Sclera: sclerae normal Neck: Neck: supple Resp: Auscultation: clear to auscultation bilaterally Cardio: Rate: regular rate GI: GI Palp: Yes Soft to palpation, No Tenderness to palpation present (GI) and Yes Guarding due to palpation present (GI) Skin: General skin exam: no rashes or lesions noted Neuro: Other: obtunded Extrem: General: normal to inspection Psych: Other: unable to assess Objective Data Vital Signs Vital Signs: Vital Signs - 24 hr 07/23/21 15:24 07/23/21 16:00 07/23/21 20:00 Temperature Pulse Rate 110 H 95 104 H Respiratory Rate Blood Pressure Pulse Oximetry 07/23/21 21:00 07/23/21 22:00 07/24/21 00:00 Temperature 97.5 F L Pulse Rate 99 106 H 103 H Respiratory Rate 20 Blood Pressure 155/86 H Pulse Oximetry 99 07/24/21 04:00 07/24/21 05:09 07/24/21 06:00 Temperature 98.2 F Pulse Rate 106 H 109 H 106 H Respiratory Rate 18 Blood Pressure 156/72 H Pulse Oximetry 97 07/24/21 08:00 Temperature Pulse Rate 104 H Respiratory Rate Blood Pressure Pulse Oximetry Intake/Output Intake/Output: Intake & Output 07/21/21 07/22/21 07/23/21 07/24/21 23:59 23:59 23:59 23:59 Intake Total 2266.7 2550 820 1050 Output Total 50 1100 450 Balance 2216.7 2550 -280 600 Meds/Results Medications: Active Medications Generic Name Dose Route Start Last Admin Trade Name Freq PRN Reason Stop Dose Admin Aspirin 325 mg 07/24/21 09:00 07/24/21 09:30 Aspirin 325 Mg Tablet PO 08/23/21 08:59 Not Given DAILY DAVINA Dextrose 12.5 gm 07/21/21 10:11 Dextrose 50% 25 Gm/50 Ml Syringe IV PUSH PRN PRN Hypoglycemia Protocol Glucagon 1 mg 07/21/21 10:11 Glucagon For Inj 1 Mg Vial IM PRN PRN Hypoglycemia Protocol Glucose 15 gm 07/21/21 10:11 Glucose Oral Gel 15 Gm Of Glucse In 37.5 Gm Tube PO PRN PRN Hypoglycemia Protocol Hydralazine HCl 10 mg 07/23/21 14:20 Hydralazine Hcl 20 Mg/Ml Vial IV PUSH Q8H PRN Blood Pressure - High Ceftriaxone Sodium/Dextrose 1 gm in 50 mls @ 100 mls/hr 07/21/21 06:00 07/24/21 05:39 Rocephin 1 Gm/D5w 50 Ml IVPB Infused Q24H DAVINA Infusion Dextrose 1,000 mls @ 100 mls/hr 07/21/21 10:11 Dextrose 5% 1,000 Ml IVPB PRN PRN Hypoglycemia Protocol Sodium Chloride 1,000 mls @ 100 mls/hr 07/21/21 10:15 07/24/21 09:32 Normal Saline Iv IV CONT 100 mls/hr .Q10H DAVINA Administration Azithromycin 500 mg in 250 m
[2021-07-24 16:48] LABS: Glucose Point of Care 112 mg/dl (65-105)
[2021-07-24] MEDS: FUROSEMIDE INJ 40 MG/4 ML VIAL IV PUSH (17:36)
[2021-07-24 21:35] LABS: Glucose Point of Care 106 mg/dl (65-105)
[2021-07-25 05:04] VITALS: BP 163/70; PULSE 100; RESP 18; TEMP 36.1; O2SAT 100
[2021-07-25 05:15] VITALS: PULSE 100
[2021-07-25] MEDS: METOPROLOL TARTRATE INJ 5 MG/5 ML VIAL 2.5 MG IV PUSH (05:15)
--- NOTE | 2021-07-25 07:30 | P.DS_ITS ---
DS: Admitting Diagnosis Discharge Date 07/25/21729 Admitting Diagnosis GI bLEED, ACUTE CVA DS: Discharge Diagnosis Discharge Diagnosis (1) Acute CVA (cerebrovascular accident): Code(s): I63.9 - Cerebral infarction, unspecified Status: Acute Assessment and Plan: * Head CT shows Acute versus subacute infarct involving the right temporal lobe and right insula, Small old infarct in left cerebellum. * MRI Cancel * Restart home aspirin at this time * Consider plavix, going to hold off for right now since she is here for an acute GI Bleed (2) Congestive heart failure: Code(s): I50.9 - Heart failure, unspecified Status: Acute Assessment and Plan: * Still awaiting echo results * Chest xray indicates PNA * Lasix on a day by day basis * Daily weights * Caution hydration (3) Pneumonia: Code(s): J18.9 - Pneumonia, unspecified organism Status: Acute Assessment and Plan: * Chest xray shows PNA * Ceftriaxone and azithromycin on board * WBC normal * Continue to monitor breathing status * Supplemental oxygen wean to maintain saturations >90% (4) Acute upper gastrointestinal bleeding: Code(s): K92.2 - Gastrointestinal hemorrhage, unspecified Status: Acute Assessment and Plan: GI consulted Continue IV Protonix EGD-->reflux esophagitis, gastritis ADAT (5) Dementia: Code(s): F03.90 - Unspecified dementia without behavioral disturbance Status: Acute Assessment and Plan: Supportive care (6) Type 2 diabetes mellitus, with long-term current use of insulin: Code(s): E11.9 - Type 2 diabetes mellitus without complications; 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 Status: Acute Assessment and Plan: Blood sugar 154 D/c D5 saline, continue with NS Accuchecks, SSI, hypoglycemic protocol Monitor (7) Acute on chronic blood loss anemia: Code(s): D62 - Acute posthemorrhagic anemia Status: Acute Assessment and Plan: Hemoglobin 10.5 Appears to be at baseline S/p EGD noted above Transfuse with the hemoglobin less than 7 Monitor (8) Hypertension: Code(s): I10 - Essential (primary) hypertension Status: Acute Assessment and Plan: Stable, current 157/80 Soft during procedure Hold home medication, resume when appropriate Monitor (9) ROSY (acute kidney injury): Code(s): N17.9 - Acute kidney failure, unspecified Status: Acute Assessment and Plan: Resolved Cr 1.00 07/21/21 Continue IV hydration Avoid nephrotoxic agents Monitor (10) Tachycardia: Code(s): R00.0 - Tachycardia, unspecified Status: Acute Assessment and Plan: SR Possibly secondary to blood loss Tele monitoring (11) Failure to thrive: Status: Acute Assessment and Plan: Refusing to eat Speech saw patient she was able to swallow Continue to encourage PO intake (12) Fever: Code(s): R50.9 - Fever, unspecified Status: Acute Assessment and Plan: * Very mild, 100.1 * Tylenol on board * Trend temp (13) Acute metabolic encephalopathy: Code(s): G93.41 - Metabolic encephalopathy Status: Acute Assessment and Plan: * probably related to the stroke * family has decided to make patient hospice * patient will go home tomorrow DS
--- NOTE | 2021-07-25 07:30 | PM.DS ---
DS: Admitting Diagnosis Discharge Date 07/25/21729 Admitting Diagnosis GI bLEED, ACUTE CVA DS: Discharge Diagnosis Discharge Diagnosis (1) Acute CVA (cerebrovascular accident): Code(s): I63.9 - Cerebral infarction, unspecified Status: Acute Assessment and Plan: Head CT shows Acute versus subacute infarct involving the right temporal lobe and right insula, Small old infarct in left cerebellum. MRI Cancel Restart home aspirin at this time Consider plavix, going to hold off for right now since she is here for an acute GI Bleed (2) Congestive heart failure: Code(s): I50.9 - Heart failure, unspecified Status: Acute Assessment and Plan: Still awaiting echo results Chest xray indicates PNA Lasix on a day by day basis Daily weights Caution hydration (3) Pneumonia: Code(s): J18.9 - Pneumonia, unspecified organism Status: Acute Assessment and Plan: Chest xray shows PNA Ceftriaxone and azithromycin on board WBC normal Continue to monitor breathing status Supplemental oxygen wean to maintain saturations >90% (4) Acute upper gastrointestinal bleeding: Code(s): K92.2 - Gastrointestinal hemorrhage, unspecified Status: Acute Assessment and Plan: GI consulted Continue IV Protonix EGD-->reflux esophagitis, gastritis ADAT (5) Dementia: Code(s): F03.90 - Unspecified dementia without behavioral disturbance Status: Acute Assessment and Plan: Supportive care (6) Type 2 diabetes mellitus, with long-term current use of insulin: Code(s): E11.9 - Type 2 diabetes mellitus without complications; Z79.4 - intermediate frame tender (current) use of insulin Status: Acute Assessment and Plan: Blood sugar 154 D/c D5 saline, continue with NS Accuchecks, SSI, hypoglycemic protocol Monitor (7) Acute on chronic blood loss anemia: Code(s): D62 - Acute posthemorrhagic anemia Status: Acute Assessment and Plan: Hemoglobin 10.5 Appears to be at baseline S/p EGD noted above Transfuse with the hemoglobin less than 7 Monitor (8) Hypertension: Code(s): I10 - Essential (primary) hypertension Status: Acute Assessment and Plan: Stable, current 157/80 Soft during procedure Hold home medication, resume when appropriate Monitor (9) ROSY (acute kidney injury): Code(s): N17.9 - Acute kidney failure, unspecified Status: Acute Assessment and Plan: Resolved Cr 1.00 07/21/21 Continue IV hydration Avoid nephrotoxic agents Monitor (10) Tachycardia: Code(s): R00.0 - Tachycardia, unspecified Status: Acute Assessment and Plan: SR Possibly secondary to blood loss Tele monitoring (11) Failure to thrive: Status: Acute Assessment and Plan: Refusing to eat Speech saw patient she was able to swallow Continue to encourage PO intake (12) Fever: Code(s): R50.9 - Fever, unspecified Status: Acute Assessment and Plan: Very mild, 100.1 Tylenol on board Trend temp (13) Acute metabolic encephalopathy: Code(s): G93.41 - Metabolic encephalopathy Status: Acute Assessment and Plan: probably related to the stroke family has decided to make patient hospice patient will go home tomorrow DS: Summary Hospital Course Hospital Course: Patient is 75-year-old female with a past medical history of CVA, carcinoma, hypertension who presented to the ED with complaints of coffee-ground emesis. GI was consulted and took patient for an EGD. EGD found gastritis with no signs of bleeding. Hemoglobin and hematocrit were on trend throughout the visit and have remained stable without transfusion. Patient was also started on Protonix twice a day. It was noted the patient was also tachycardic. Repeat echo was performed showing EF of 60 65% with grade 1 diastolic dysfunction and moderate a
[2021-07-25 08:07] LABS: Glucose Point of Care 95 mg/dl (65-105)
[2021-07-25] MEDS: SODIUM CHLORIDE 0.9% IV 1,000 ML 100 ML IV CONT (08:24)
[2021-07-25] MEDS: PANTOPRAZOLE SODIUM IV 40 MG VIAL IV PUSH (08:24)
[2021-07-25 08:31] VITALS: O2SAT 100
--- NOTE | 2021-07-25 11:34 | P.CDI_ITS ---
CDI Query Clarification Request -CHF has been documented -Echo summary: EF 60-65%, grade 1 diastolic dysfunction -Lasix 40mg IV given twice Please further specify type and acuity of CHF: * Systolic *Acute * Diastolic *Chronic * Both systolic and diastolic *Acute on chronic * Unable to determine *Unable to determine <Abimbola Aguirre RN - Last Filed: 07/25/21 11:37> No acute exacerbation noted <BROOKLYNN Black - Last Filed: 07/25/21 13:18>
[2021-07-28 19:27] LABS: Soluble Transferrin Receptor 1.23 mg/L (0.76-1.76)
== END 2021-07-25 09:30 | disposition hospice, home (50) | DRG 377 ==
LOC: ANHED 06:01 → ANH2MED 06:11
PROVIDERS: Hospitalist; Internal Medicine Gastroenterology; Nurse Practitioner; Nurse Practitioner Adult Health; Admitting Provider Internal Medicine; Emergency Provider Emergency Medicine; PCP Family Medicine; Visit Provider Internal Medicine
PROC: 0DJ08ZZ Inspection of Upper Intestinal Tract, Via Natural or Artificial Opening Endoscopic (ICD-10-PCS; CPT 43235; principal; 2021-07-21 13:30)
DX: K29.71 Gastritis, unspecified, with bleeding (principal); J18.9 Pneumonia, unspecified organism; G93.41 Metabolic encephalopathy; D62 Acute posthemorrhagic anemia; N17.9 Acute kidney failure, unspecified; I62.9 Nontraumatic intracranial hemorrhage, unspecified; F03.90 Unspecified dementia, unspecified severity, without behavioral disturbance, psychotic disturbance, mood disturbance, and anxiety; E11.319 Type 2 diabetes mellitus with unspecified diabetic retinopathy without macular edema; E11.40 Type 2 diabetes mellitus with diabetic neuropathy, unspecified; E78.00 Pure hypercholesterolemia, unspecified; K21.00 Gastro-esophageal reflux disease with esophagitis, without bleeding; K25.9 Gastric ulcer, unspecified as acute or chronic, without hemorrhage or perforation; I11.0 Hypertensive heart disease with heart failure; I50.9 Heart failure, unspecified; R00.0 Tachycardia, unspecified; R62.7 Adult failure to thrive; D50.9 Iron deficiency anemia, unspecified; E55.9 Vitamin D deficiency, unspecified; M15.9 Polyosteoarthritis, unspecified; Z79.4 Long term (current) use of insulin; Z79.82 Long term (current) use of aspirin; Z79.899 Other long term (current) drug therapy; Z85.828 Personal history of other malignant neoplasm of skin; Z86.73 Personal history of transient ischemic attack (TIA), and cerebral infarction without residual deficits; Z86.16 Personal history of COVID-19
CPT/HCPCS: 36415; 51701; 70450; 71045; 74177; 80048; 80053; 81001; 82607; 82728; 82746; 82948; 83540; 83550; 83605; 83615; 83690; 83735; 83880; 84238; 84443; 84466; 84484; 85014; 85018; 85025; 85027; 85610; 85730; 86850; 86900; 86901; 87040; 87086; 88305; 88342; 92610; 93005; 93306; 96361; 96365; 96366; 96367; 96376; 97162; 97165; 99285; A9270; C9113; G0378; J0456; J0696; J1815; J1940; J2704; J3475; J3480; J7030; J7040; J7042; J7060; J7120; Q9967